=== PATIENT | male | born 1950 | race Hispanic/Latino ===

== ENCOUNTER 2017-01-21 05:30 | Inpatient (IN) | payer MEDICARE, OTHER ==
[2017-01-21] MEDS ORDERED: Sodium Chloride 0.9% 1,000 ML IV STA (05:52)
--- NOTE | 2017-01-21 05:52 | ED PDOC ---
Arrival/HPI - General Historian: Patient - History of Present Illness Time/Duration: Other (last night) Symptom Onset: Gradual Activities at Onset: Light, Eating Context: Home <Zac Mackay - Last Filed: 01/21/17 07:00> <DamionsergeiCam - Last Filed: 01/21/17 11:16> - General Chief Complaint: Abdominal Pain Time Seen by Provider: 01/21/17 05:47 - History of Present Illness Narrative History of Present Illness (Text): 01/21/17 05:51 Bryan Mei is a 66 year old male, whose past medical history includes colorectal cancer in remission, hypertension, diabetes, pneumonia, and pacemaker , who presents to the ED complaining of diffuse abdominal pain after eating since last night. Patient also reports associated nausea and vomiting. Patient states he had took TUMS at home but denies any relief. Patient denies any fever , chills, chest pain, shortness of breath, diarrhea, urinary symptoms, back pain , neck pain, headache, dizziness, or any other complaints. (Zac Mackay) Past Medical History - Provider Review Nursing Documentation Reviewed: Yes - Infectious Disease Hx of Infectious Diseases: None - Cardiac Hx Hypertension: Yes Hx Pacemaker: Yes - Pulmonary Hx Respiratory Disorders: Yes Hx Asthma: Yes Hx Pneumonia: Yes - Neurological Hx Paralysis: No - HEENT Hx HEENT Disorder: Yes Hx Cataracts: Yes - Renal Hx Renal Disorder: Yes - Endocrine/Metabolic Hx Endocrine Disorders: Yes Hx Diabetes Mellitus Type 2: Yes - Hematological/Oncological Hx Blood Transfusions: No Hx Blood Transfusion Reaction: No - Integumentary Hx Dermatological Disorder: No - Musculoskeletal/Rheumatological Hx Musculoskeletal Disorders: Yes - Gastrointestinal Hx Gastrointestinal Disorders: Yes Hx Colostomy: Yes - Genitourinary/Gynecological Hx Genitourinary Disorders: No - Psychiatric Hx Emotional Abuse: No Hx Physical Abuse: No Hx Substance Use: No - Surgical History Hx Inguinal Hernia Repair: Yes - Anesthesia Hx Anesthesia Reactions: No Hx Malignant Hyperthermia: No - Suicidal Assessment Feels Threatened In Home Enviroment: No <Zac Mackay - Last Filed: 01/21/17 07:00> Family/Social History - Physician Review Nursing Documentation Reviewed: Yes Family/Social History: No Known Family HX Smoking Status: Former Smoker Hx Alcohol Use: No Hx Substance Use: No <Zac Mackay - Last Filed: 01/21/17 07:00> Allergies/Home Meds <Zac Mackay - Last Filed: 01/21/17 07:00> <Cam Fragoso - Last Filed: 01/21/17 11:16> Allergies/Adverse Reactions: Allergies No Known Allergies Allergy (Verified 07/05/16 11:12) Home Medications: Home Meds Medication Instructions Recorded Confirmed Enalapril Maleate [Vasotec] 2.5 mg PO DAILY 08/11/13 01/21/17 Allopurinol [Zyloprim] 100 mg PO DAILY 04/24/16 01/21/17 Aspirin [Ecotrin] 81 mg PO DAILY 04/24/16 01/21/17 Gabapentin [Neurontin] 600 mg PO BID 04/24/16 01/21/17 Pravastatin Sodium [Pravachol] 40 mg PO DIN 04/24/16 01/21/17 Alprazolam 0.25 mg PO BID PRN 04/25/16 01/21/17 Oxycodone HCl/Acetaminophen 1 tab PO BID PRN 07/05/16 01/21/17 [Percocet 10-325 mg Tablet] Sertraline [Zoloft] 50 mg PO BID 07/05/16 01/21/17 Review of Systems - Physician Review All systems were reviewed & negative as marked: Yes - Review of Systems Constitutional: Normal. absent: Fevers Eyes: Normal ENT: Normal Respiratory: Normal. absent: SOB, Cough Cardiovascular: Normal. absent: Chest Pain Gastrointestinal: Abdominal Pain, Nausea, Vomiting. absent: Diarrhea Genitourinary Male: Normal. absent: Dysuria, Frequency, Hematuria, Urinary Output Changes Musculoskeletal: Normal. absent: Back Pain, Neck Pain Skin: Normal. absent: Rash Neurological: Normal. absent: Headache, Dizziness Endocrine: Normal Hemo/Lymphatic: Normal Psychiatric: Normal <Zac Mackay - Last Filed: 01/21/17 07:00> Physical Exam Vital Signs Reviewed: Yes Temperature: Afebrile Blood Pressure: Normal Pulse: Regular Respiratory Rate: Normal Appearance: Positive for: Well-Appearing, Non-Toxic, Comfortable Pain Distress: None Mental Status: Positive for: Alert and Oriented X 3 - Systems Exam Head: Present: Atraumatic, Normocephalic Pupils: Present: PERRL Extroacular Muscles: Present: EOMI Conjunctiva: Present: Normal Mouth: Present: Moist Mucous Membranes Neck: Present: Normal Range of Motion Respiratory/Chest: Present: Clear to Auscultation, Good Air Exchange. No: Respiratory Distress, Accessory Muscle Use Cardiovascular: Present: Regular Rate and Rhythm, Normal S1, S2. No: Murmurs Abdomen: Present: Tenderness (Diffuse abdominal tenderness, not acute abdomen), Normal Bowel Sounds. No: Distention, Peritoneal Signs Back: Present: Normal Inspection Upper Extremity: Present: Normal Inspection. No: Cyanosis, Edema Lower Extremity: Present: Normal Inspection. No: Edema Neurological: Present: GCS=15, CN II-XII Intact, Speech Normal Skin: Present: Warm, Dry, Normal Color. No: Rashes Psychiatric: Present: Alert, Oriented x 3, Normal Insight, Normal Concentration <Zac Mackay - Last Filed: 01/21/17 07:00> Medical Decision Making - EKG Interpretation Interpreted by ED Physician: Yes Type: 12 lead EKG - Transfer of Care Patient signed out to Dr:: felix ct scan labs and dispo <Zac Mackay - Last Filed: 01/21/17 07:00> <Cam Fragoso - Last Filed: 01/21/17 11:16> ED Course and Treatment: 01/21/17 05:51 Impression: 66 year old male complaining of diffuse upper abdominal pain, nausea, and vomiting since last night. Plan: -- CT Abdominal and Pelvis w/o contrast -- EKG -- CXR -- Labs, cardiac enzymes, lipase, amylase, VBG, blood cultures -- Urinalysis -- IV fluids -- Zofran -- Dilaudid -- Reassess and disposition Prior Visits: Notes and results from previous visits were reviewed. Progress Notes: Reviewed EKG, 100% paced rhythm at 65 bpm. (Zac Mackay) 01/21/17 05:55 Sign out from overnight. Pending CT scan (Cam Fragoso) - Lab Interpretations Lab Results: 01/21/17 05:50 01/21/17 05:50 Lab Results 01/21/17 09:15: pO2 208 H, VBG pH 7.32, VBG pCO2 53.0, VBG HCO3 27.3, VBG Total CO2 28.9 H, VBG O2 Sat (Calc) 100.0 H, VBG Base Excess 0.3, VBG Potassium 4.5, Sodium 135.0, Chloride 106.0, Glucose 153 H, Lactate 1.9, FiO2 21.0, Venous Blood Potassium 4.5 01/21/17 07:15: Urine Color Yellow, Urine Appearance Sl cloudy, Urine pH 6.0, Ur Specific [place] >= 1.030, Urine Protein >=300 H, Urine Glucose (UA) Negative , Urine Ketones Negative, Urine Blood Small H, Urine Nitrate Negative, Urine Bilirubin Negative, Urine Urobilinogen 0.2, Ur Leukocyte Esterase Negative, Urine RBC 0 - 2, Urine WBC Negative 01/21/17 05:50: pO2 94 H, VBG pH 7.40, VBG pCO2 40.0, VBG HCO3 24.8, VBG Total CO2 26.0, VBG O2 Sat (Calc) 98.7 H, VBG Base Excess 0.0, VBG Potassium 4.3, Sodium 136.0, Chloride 105.0, Glucose 163 H, Lactate 2.0, FiO2 21.0, Venous Blood Potassium 4.3 01/21/17 05:50: Sodium 139, Chloride 101, Potassium 4.3, Carbon Dioxide 25, Anion Gap 17, BUN 18, Creatinine 1.0, Est GFR ( Amer) > 60, Est GFR (Non- Af Amer) > 60, Random Glucose 157 H, Calcium 9.6, Total Bilirubin 1.1, AST 46, ALT 48, Alkaline Phosphatase 83, Lactate Dehydrogenase 736 H, Total Creatine Kinase 584 H, CK-MB (CK-2) 6.5 H, CK-MB (CK-2) % 1.1 L, Troponin I < 0.01, Total Protein 8.6 H, Albumin 4.6, Globulin 4.0, Albumin/Globulin Ratio 1.2, Amylase 88, Lipase 109 01/21/17 05:50: PT 11.2, INR 1.04, APTT 24.2 01/21/17 05:50: WBC 10.7 D, RBC 5.32, Hgb 16.1, Hct 46.2, MCV 86.8, MCH 30.3, MCHC 34.8, RDW 15.7 H, Plt Count 177, MPV 9.6, Gran % 77.3 H, Lymph % (Auto) 13.2 L, [place] % (Auto) 8.6 H, Eos % (Auto) 0.7 L, Baso % (Auto) 0.2, Gran # 8.26 H, Lymph # 1.4, [place] # 0.9 H, Eos # 0.1, Baso # 0.02 - RAD Interpretation Radiology Orders: 01/21/17 05:52 ABD & PELVIS W/O PO OR IV CONT [CT] Stat - Medication Orders Current Medication Orders: Sodium Chloride (Sodium Chloride 0.9%) 1,000 mls @ 100 mls/hr IV .Q10H STA Stop: 01/21/17 15:51 Last Admin: 01/21/17 06:07 Dose: 100 mls/hr Sodium Chloride (Sodium Chloride 0.9%) 1,000 mls @ 100 mls/hr IV .Q10H ORIANA Discontinued Medications Hydromorphone HCl (Dilaudid) 2 mg IVP STAT STA Stop: 01/21/17 05:54 Last Admin: 01/21/17 06:08 Dose: 2 mg Re-Assess: MICHELLE Pain Assessment Document 01/21/17 07:08 SS (Rec: 01/21/17 07:32 SS [facility] [id number]) Pain Reassessment Is this a pain reassessment? Yes Sleep Is patient sleeping during reassessment? No Presence of Pain Presence of Pain No Pain Scale Used Pain Scale Used Numeric Location Pain Location Body Site Abdomen Description Intensity of Pain at present 0 Piperacillin Sod/Tazobactam Sod (Zosyn 4.5 Gm In Ns 100ml) 4.5 gm in 100 mls @ 200 mls/hr IVPB STAT STA PRN Reason: Protocol Stop: 01/21/17 10:43 Last Admin: 01/21/17 10:45 Dose: 200 mls/hr Midazolam HCl (Versed Inj) 2 mg IVP ONCE ONE Stop: 01/21/17 10:55 Ondansetron HCl (Zofran Inj) 4 mg IVP STAT STA Stop: 01/21/17 05:53 Last Admin: 01/21/17 06:07 Dose: 4 mg ED OBSERVATION <Zac Mackay - Last Filed: 01/21/17 07:00> Date of observation admission: 01/21/17 Time of observation admission: 05:55 <Cam Fragoso - Last Filed: 01/21/17 11:16> - Observation admission statement Patient is being placed in observation because:: abdominal pain (Cam Fragoso) - Goals of Observation Goals of observation are:: pending labs and CT (Cam Fragoso) - Progress Note Progress Note: 01/21/17 07:55 On reevaluation, patient reports feeling better. On physical exam, abdomen was soft nontender. 01/21/17 10:[address] Delarosa, covering for Dr. Pat, who agrees with ng tube and surgical consult. 01/21/17 10:[address] Hartman in the ER, states will consult surgery NGT order placed, RN aware to premedicate with versed pt aware of and agrees with NGT and admission plan CT abd/pelvis: Creator : Charles Ga MD IMPRESSION: Moderately dilated loops of small bowel in the mid and upper abdomen. Findings consistent with partial small bowel obstruction. No evidence of pneumatosis or free air. 01/21/17 11:[address] Harley from surgery, aware of pt and consult for Dr. Osuna. 01/21/17 11:[address] Wahl, covering for Dr. Osuna, aware of pt plan and consult ( Cam Fragoso) - Scribe Statement The provider has reviewed the documentation as recorded by the Scribe <Zac Mackay - Last Filed: 01/21/17 07:00> <Cam Fragoso - Last Filed: 01/21/17 11:16> - Scribe Statement Kellie Lane (Zac Mackay) Provider Attestation: All medical record entries made by the Scribe were at my direction and personally dictated by me. I have reviewed the chart and agree that the record accurately reflects my personal performance of the history, physical exam, medical decision making, and the department course for this patient. I have also personally directed, reviewed, and agree with the discharge instructions and disposition. (Zac Mackay) Disposition/Present on Arrival - Present on Arrival Any Indicators Present on Arrival: No History of DVT/PE: No History of Uncontrolled Diabetes: No Urinary Catheter: No History of Decub. Ulcer: No History Surgical Site Infection Following: None - Disposition Have Diagnosis and Disposition been Completed?: Yes Disposition Time: 07:00 <Zac Mackay - Last Filed: 01/21/17 07:00> - Present on Arrival Any Indicators Present on Arrival: No - Disposition Have Diagnosis and Disposition been Completed?: Yes Patient Plan: Admission <Cam Fragoso - Last Filed: 01/21/17 11:16> - Disposition Diagnosis: Abdominal pain Disposition: HOSPITALIZED Patient Problems: Current Active Problems Problem Status Onset Abdominal pain Acute Condition: FAIR
[2017-01-21] MEDS ORDERED: HYDROmorphone 2 mg/ml ISec IVP STA (05:53)
[2017-01-21 06:16] LABS: ADD MANUAL DIFF? NO
[2017-01-21 06:24] LABS: BASO # 0.02 K/mm3 (0.0-2.0); BASO % 0.2 % (0.0-3.0); EOS # 0.1 (0.0-0.7); EOS % 0.7 % (1.5-5.0); GRAN # 8.26 (1.4-6.5); GRAN % 77.3 % (50.0-68.0); HEMATOCRIT 46.2 % (42.0-52.0); LYMPH # 1.4 (1.2-3.4); LYMPH % 13.2 % (22.0-35.0); MEAN CELL VOLUME 86.8 fL (80.0-105.0); MEAN CORPUSCULAR HEMOGLOBIN 30.3 pg (25.0-35.0); MEAN CORPUSCULAR HGB CONC 34.8 g/dl (31.0-37.0); MEAN PLATELET VOLUME 9.6 fl (7.0-11.0); MONO # 0.9 (0.1-0.6); MONO % 8.6 % (1.0-6.0); PLATELET COUNT 177 10^3/uL (120.0-450.0); RED CELL DISTRIBUTION WIDTH 15.7 % (11.5-14.5); WHITE BLOOD COUNT 10.7 10^3/ul (4.5-11.0)
[2017-01-21 06:31] LABS: INR 1.04 (0.93-1.08); PARTIAL THROMBOPLASTIN TIME 24.2 Seconds (23.7-30.8)
[2017-01-21 06:38] LABS: ALB/GLOB RATIO 1.2 (1.1-1.8); ALKALINE PHOSPHATASE 83 U/L (38-133); ALT/SGPT 48 U/L (7-56); AMYLASE 88 U/L (35-125); AST/SGOT 46 U/L (15-59); BILIRUBIN,TOTAL 1.1 mg/dL (0.2-1.3); BLOOD UREA NITROGEN 18 mg/dL (7-21); CALCIUM 9.6 mg/dL (8.4-10.5); CARBON DIOXIDE 25 mmol/L (21-33); CHLORIDE 101 mmol/L (98-107); GFR AFRICAN-AMERICAN > 60; GLUCOSE,RANDOM 157 mg/dL (70-110); LIPASE 109 U/L (23-300); POTASSIUM 4.3 mmol/L (3.6-5.0); SODIUM 139 mmol/L (132-148); TOTAL PROTEIN 8.6 g/dL (5.8-8.3)
[2017-01-21 07:10] LABS: TROPONIN I < 0.01 ng/mL
[2017-01-21 07:33] LABS: URINE BILIRUBIN NEGATIVE (NEGATIVE); URINE BLOOD SMALL (NEGATIVE); URINE GLUCOSE (UA) NEGATIVE (NEGATIVE); URINE KETONE NEGATIVE (NEGATIVE); URINE LEUKOCYTE ESTERASE NEGATIVE Leu/uL (NEGATIVE); URINE PROTEIN >=300 mg/dL (<30 mg/dL); URINE UROBILINOGEN 0.2 E.U./dL (<1 E.U./dL)
[2017-01-21 07:35] LABS: URINE APPEARANCE SL CLOUDY (CLEAR); URINE COLOR YELLOW (YELLOW)
[2017-01-21 07:41] LABS: URINE RBC 0 - 2 /hpf (0-2); URINE WBC NEGATIVE /hpf (0-6)
[2017-01-21 09:32] LABS: VENOUS BLOOD GAS BASE EXCESS 0.3 mmol/L (0.0-2.0); VENOUS BLOOD PH 7.32 (7.32-7.43)
--- NOTE | 2017-01-21 10:03 | CT ---
PROCEDURE: CT Abdomen and Pelvis without intravenous contrast HISTORY: abd pain COMPARISON: 10/27/2015 TECHNIQUE: Without contrast. Contrast Dose: Radiation dose: Total exam DLP = 1257 mGy-cm. This CT exam was performed using one or more of the following dose reduction techniques: Automated exposure control, adjustment of the mA and/or kV according to patient size, and/or use of iterative reconstruction technique. FINDINGS: LOWER THORAX: Unremarkable. LIVER: Unremarkable. No gross lesion or ductal dilatation. GALLBLADDER AND BILE DUCTS: Unremarkable. PANCREAS: Unremarkable. No gross lesion or ductal dilatation. SPLEEN: Unremarkable. ADRENALS: Unremarkable. No mass. KIDNEYS AND URETERS: Unremarkable. No hydronephrosis. No solid mass. VASCULATURE: Unremarkable. No aortic aneurysm. BOWEL: Moderately dilated loops of small bowel are seen throughout the abdomen. There are normal caliber loops in the pelvis and terminal ileum. The exact transition point is not visualized. Findings are most likely due to adhesions. There has been previous surgery on the colon. There is a suture line in the sigmoid colon and in the lower rectum. There is no evidence of pneumatosis or free air APPENDIX: Unremarkable. Normal appendix. PERITONEUM: Unremarkable. No free fluid. No free air. LYMPH NODES: Unremarkable. No enlarged lymph nodes. BLADDER: Unremarkable. REPRODUCTIVE: Unremarkable. BONES: No acute fracture. OTHER FINDINGS: None. IMPRESSION: Moderately dilated loops of small bowel in the mid and upper abdomen. Findings consistent with partial small bowel obstruction. No evidence of pneumatosis or free air.
[2017-01-21] MEDS ORDERED: Piperacill/Tazo 4.5gm in NS 100 ML IVPB STA (10:13)
[2017-01-21] MEDS ORDERED: Piperacill/Tazo 4.5gm in NS 4.5 GM/100 ML BAG IVPB STA (10:14)
[2017-01-21] MEDS ORDERED: Midazolam 2 MG/2 ML VIAL IVP ONE (10:54)
[2017-01-21] MEDS ORDERED: Sodium Chloride 0.9% 1,000 ML IV SCH ×2 (11:00→12:43)
--- NOTE | 2017-01-21 12:35 | CON ---
DATE: 01/21/2017 This consultation is for Dr. Johnson, Dr. Delarosa covering. REASON FOR CONSULTATION: I have been asked to see this 66-year-old male with history of colorectal c ancer, status post colon resection 2 years ago followed by chemoradiation, who has been doing well up until yesterday when he developed moderate to severe abdominal pain associated with nausea and vomit ing. The patient required a visit to the Emergency Room. A CT scan of the abdomen and pelvis perfor med in the Emergency Room revealed dilated loops of small bowel with what appears to be a transition point in the left lower quadrant. He last had a bowel movement yesterday. He denies any hematemesis or rectal bleeding. PAST MEDICAL HISTORY: Notable for colon cancer, diabetes mellitus, hypertension, cardiac arrhythmia, pneumonia. PAST SURGICAL HISTORY: Notable for permanent pacemaker placement, colon resection with colostomy and reversal of colostomy, inguinal hernia repair. SOCIAL HISTORY: He is a former cigarette smoker, having quit years ago. FAMILY HISTORY: Noncontributory. REVIEW OF SYSTEMS: A 14-point review of systems is notable for abdominal pain, nausea, vomiting. PHYSICAL EXAMINATION: GENERAL: Well-developed male lying in bed in no acute distress. His BMI is 37.3. VITAL SIGNS: Reveal temperature of 98.2, blood pressure 120/59, heart rate is 60. HEENT: Reveals sclerae to be white, conjunctivae pink. NECK: Supple. CHEST: Lungs are clear. HEART: Reveals a regular rate and rhythm. ABDOMEN: Obese, soft, mild diffuse tenderness. No rebound, no guarding. EXTREMITIES: Show no edema. LABORATORY DATA: Reveal white blood cell count 10.7, hemoglobin 16.1. Chemistries reveal normal elisa ctrolytes, blood sugar of 157, LDH 736. CBC reveals white blood cell count of 10.7, hemoglobin 16.1. Coags are normal. IMPRESSION: A 66-year-old male with a history of colorectal cancer, status post colon resection, tem porary colostomy, reversal of colostomy with a CT scan showing small-bowel obstruction, most likely s econdary to adhesions. RECOMMENDATIONS: 1. NG tube decompression. 2. Surgical evaluation. 3. Serial x-rays of the abdomen. Zac Delarosa MD cc: [phone] TT: 01/21/2017 12:34:24 Confirmation # [id number] Dictation # [id number]
--- NOTE | 2017-01-21 12:38 | CP.PCM.CON ---
History of Present Illness - History of Present Illness History of Present Illness: General Surgery Consult: Dr Bautista CC: abdominal pain/distension Pt is a 66M with PMH of HTN, DM, and left hemicolectomy for cancer in 2014. Pt reports he began feeling john-umbilical cramping pain last night. Initially pain was 4/10 but has progressively worsened as it occurs in waves throughout the night, prompting his visit to the ED. He reports 2 episodes of emesis with persistent nausea as well. PT reports he has not moved his bowels in 2 days, but he has been passing flatus. He also complains his abdomen is significantly more distended than normal. CT concerning for SBO with transition point in LLQ. Multiple attempts made to pass NGT by nurses, ED physician and myself. All unsuccessful and unable to pass nasopharyngeal airway. There may be mechanical issue causing obstruction. Review of Systems - Review of Systems All systems: reviewed and no additional remarkable complaints except (as per hpi ) Past Patient History - Infectious Disease Hx of Infectious Diseases: None - Past Social History Smoking Status: Former Smoker - CARDIAC Hx Hypertension: Yes Hx Pacemaker: Yes - PULMONARY Hx Respiratory Disorders: Yes Hx Asthma: Yes Hx Pneumonia: Yes - NEUROLOGICAL Hx Paralysis: No - HEENT Hx HEENT Problems: Yes Hx Cataracts: Yes - RENAL Hx Chronic Kidney Disease: Yes - ENDOCRINE/METABOLIC Hx Endocrine Disorders: Yes Hx Diabetes Mellitus Type 2: Yes - HEMATOLOGICAL/ONCOLOGICAL Hx Blood Transfusions: No Hx Blood Transfusion Reaction: No - INTEGUMENTARY Hx Dermatological Problems: No - MUSCULOSKELETAL/RHEUMATOLOGICAL Hx Musculoskeletal Disorders: Yes - GASTROINTESTINAL Hx Gastrointestinal Disorders: Yes Hx Colostomy: Yes - GENITOURINARY/GYNECOLOGICAL Hx Genitourinary Disorders: No - PSYCHIATRIC Hx Emotional Abuse: No Hx Physical Abuse: No Hx Substance Use: No - SURGICAL HISTORY Hx Surgeries: Yes - ANESTHESIA Hx Anesthesia Reactions: No Hx Malignant Hyperthermia: No Meds Allergies/Adverse Reactions: Allergies Allergy/AdvReac Type Severity Reaction Status Date / Time No Known Allergies Allergy Verified 01/21/17 12:08 - Medications Medications: Current Medications Sodium Chloride (Sodium Chloride 0.9%) 1,000 mls @ 100 mls/hr IV .Q10H STA Stop: 01/21/17 15:51 Last Admin: 01/21/17 06:07 Dose: 100 mls/hr Sodium Chloride (Sodium Chloride 0.9%) 1,000 mls @ 100 mls/hr IV .Q10H ORIANA Physical Exam - Constitutional Appears: Non-toxic, No Acute Distress - Head Exam Head Exam: NORMOCEPHALIC - Eye Exam Eye Exam: Normal appearance - ENT Exam ENT Exam: Mucous Membranes Dry - Respiratory Exam Respiratory Exam: absent: Accessory Muscle Use, Respiratory Distress - Cardiovascular Exam Cardiovascular Exam: REGULAR RHYTHM. absent: Tachycardia - GI/Abdominal Exam GI & Abdominal Exam: Diminished Bowel Sounds, Distended, Firm. absent: Guarding , Hernia, Mass, Rigid, Tenderness - Rectal Exam Rectal Exam: absent: Deferred - Extremities Exam Extremities exam: Positive for: normal inspection. Negative for: pedal edema - Neurological Exam Neurological exam: Alert, Oriented x3 - Psychiatric Exam Psychiatric exam: Normal Affect, Normal Mood - Skin Skin Exam: Normal Color, Warm Results - Vital Signs Recent Vital Signs: Last Vital Signs Temp 98.3 F 01/21/17 11:54 Pulse 60 01/21/17 12:11 Resp 18 01/21/17 12:11 BP 120/53 L 01/21/17 12:11 Pulse Ox 95 01/21/17 12:11 - Labs Result Diagrams: 01/21/17 05:50 01/21/17 05:50 Assessment & Plan - Assessment and Plan (Free Text) Assessment: 66M with SBO Plan: Unable to pass NGT for decompression Maintain NPO IV hydration anti-emetics and pain control PRN pt passing flatus currently encourage ambulation Pt can chew gum to possibly help stimulate GI motility will continue to monitor closely d/w Dr Michele Montiel, DO, PGY2 - Date & Time Date: 01/21/17 Time: 12:40
[2017-01-21] MEDS ORDERED: HYDROmorphone 0.5 mg/0.5 ml ISec IVP PRN (12:42)
[2017-01-21] MEDS ORDERED: Sodium Chloride 0.45% 1,000 ML IV SCH (13:00)
[2017-01-21] MEDS: Sodium Chloride 0.45% 1,000 ML IV SCH ×2 (13:33→21:00)
--- NOTE | 2017-01-21 14:02 | HP ---
The patient is a 66-year-old, known to me from my office practice. The patient was diagnosed with re ctal carcinoma. He had abdominoperineal access resection done. He had colostomy that was reversed a lmost a year or 2 ago. He was having some abdominal discomfort, intermittent, so he had CAT scan don e by his surgeon in [facility] almost a week ago. His symptoms actually persisted and got worse last night, so he came to Emergency Room for further evaluation. SIGNIFICANT PAST MEDICAL HISTORY: 1. Hypertension. 2. Non-insulin dependent diabetes. 3. History of renal cancer. 4. Hyperlipidemia. 5. Chronic diarrhea. ALLERGIES: He is not allergic to any medication. MEDICATIONS AT HOME: He is on Zoloft 50 mg daily, pravastatin 40 mg daily, Percocet as needed, Neuro ntin 600 twice a day, enalapril 2.5 daily, Xanax 0.25 b.i.d. and allopurinol 100 mg daily. SOCIAL HISTORY: He is , lives with his . History of smoking heavy in the past, but does not smoke anymore. REVIEW OF SYSTEMS: Significant for abdominal discomfort, had nausea, had a couple of vomiting before coming to the hospital. PHYSICAL EXAMINATION: GENERAL: He does not look in any acute distress. VITAL SIGNS: He is afebrile, pulse 62, respirations 18, blood pressure 120/53. LUNGS: Bilateral fair airflow, no rhonchi or crackle. HEART: S1, S2 audible. ABDOMEN: Soft, but slightly distended. Bowel sounds are positive. NEUROLOGIC: He is awake and alert, communicative. LABORATORY EXAMINATION: WBCs 10.7, hemoglobin 16, hematocrit 46, platelets 177. PT 11.2, INR 1.04. Chemistry: Sodium 139, potassium 4.3, chloride 101, CO2 25, BUN 18, creatinine 1.0, blood sugar of 157. LDH is 736. CK-MB is 6.5. Urinalysis is unremarkable. ASSESSMENT: 1. Partial small bowel obstruction, probably secondary to adhesions. 2. Rectal cancer, status post abdominoperineal resection. 3. Non-insulin dependent diabetes. 4. Hyperlipidemia. CT scan of the abdomen and pelvis shows moderately dilated loops of small bowel in the mid and the up per abdomen, findings consistent with partial small bowel obstruction. PLAN: Will have nasogastric placed. Keep him n.p.o., give IV fluid, monitor his blood sugar. Start him on pantoprazole and Zofran as needed. Dr. Springer for evaluation and Dr. Delarosa is following the patient also. Sundar Hartman MD cc: [phone] TT: 01/21/2017 14:01:24 en
--- NOTE | 2017-01-21 15:38 | CARD ---
APPROVED REPORT EKG Measurement Heart [id number] <Conclusion> Electronic ventricular pacemaker
[2017-01-21 15:51] VITALS: BMI 32.6
[2017-01-21] MEDS: Insulin Reg-HIGH-Coverage SC SCH (21:54)
[2017-01-22] MEDS: Sodium Chloride 0.45% 1,000 ML IV SCH (05:17)
[2017-01-22] MEDS: Insulin Reg-HIGH-Coverage SC SCH ×4 (07:30→21:51)
--- NOTE | 2017-01-22 07:41 | CP.PCM.PN ---
Subjective - Date & Time of Evaluation Date of Evaluation: 01/22/17 Time of Evaluation: 07:35 - Subjective Subjective: Patient seen and evaluated at bedside. No acute events overnight. Patient with multiple BM's overnight. He is passing gas. He denies abd pain, n/v, fever, chills. Patient had a colonoscopy recently for monitoring due to history of colorectal ca. He is followed by both GI and oncology for this. Objective - Vital Signs/Intake and Output Vital Signs (last 24 hours): Temp Pulse Resp BP Pulse Ox 98.5 F 60 19 110/51 L 95 01/21/17 16:00 01/21/17 16:00 01/21/17 16:00 01/21/17 16:00 01/21/17 16:00 Intake and Output: 01/22/17 01/22/17 06:59 18:59 Intake Total 1500 Balance 1500 - Medications Medications: Current Medications Alprazolam (Xanax) 0.25 mg PO BID PRN; Protocol PRN Reason: Anxiety Stop: 01/28/17 12:56 Aspirin (Ecotrin) 81 mg PO DAILY [facility] Hydromorphone HCl (Dilaudid) 0.5 mg IVP Q3H PRN PRN Reason: Pain, Mild (1-3) Sodium Chloride (Sodium Chloride 0.45%) 1,000 mls @ 125 mls/hr IV .Q8H [facility] Last Admin: 01/22/17 05:17 Dose: 125 mls/hr Insulin Human Regular (Humulin R High) 0 units SC ACHS [place] PRN Reason: Protocol Last Admin: 01/21/17 21:54 Dose: Not Given Ondansetron HCl (Zofran Inj) 4 mg IVP Q6H PRN PRN Reason: Nausea/Vomiting Pantoprazole Sodium (Protonix Inj) 40 mg IVP DAILY [facility] Last Admin: 01/21/17 13:32 Dose: 40 mg Sertraline HCl (Zoloft) 50 mg PO BID [facility] - Labs Labs: PT 11.2 Seconds (9.9-11.8) 01/21/17 05:50 INR 1.04 (0.93-1.08) 01/21/17 05:50 APTT 24.2 Seconds (23.7-30.8) 01/21/17 05:50 - Constitutional Appears: Non-toxic, No Acute Distress - Head Exam Head Exam: ATRAUMATIC, NORMOCEPHALIC - Eye Exam Eye Exam: EOMI, PERRL - ENT Exam ENT Exam: Mucous Membranes Moist - Neck Exam Neck Exam: Full ROM - Respiratory Exam Respiratory Exam: Clear to Ausculation Bilateral. absent: Rales, Rhonchi, Wheezes - Cardiovascular Exam Cardiovascular Exam: REGULAR RHYTHM, +S1, +S2 - GI/Abdominal Exam GI & Abdominal Exam: Soft, Normal Bowel Sounds. absent: Distended, Firm, Tenderness - Extremities Exam Extremities Exam: absent: Calf Tenderness, Pedal Edema - Back Exam Back Exam: NORMAL INSPECTION - Neurological Exam Neurological Exam: Alert, Awake, Oriented x3 - Psychiatric Exam Psychiatric exam: Normal Affect, Normal Mood - Skin Skin Exam: Normal Color, Warm Assessment and Plan - Assessment and Plan (Free Text) Assessment: 66 y/o male with hx colorectal ca s/p left sanchez-colectomy presenting with SBO. Obstruction is now resolved. Patient with multiple BMs overnight. - will advance diet to clears this morning. will advance as tolerated today. - patient is clear for discharge once he tolerates diet - encourage OOB and ambulation - no surgical intervention as obstruction is resolved
[2017-01-22 07:53] LABS: ALB/GLOB RATIO 1.1 (1.1-1.8); ALKALINE PHOSPHATASE 61 U/L (38-133); ALT/SGPT 40 U/L (7-56); AST/SGOT 34 U/L (15-59); BILIRUBIN,TOTAL 1.2 mg/dL (0.2-1.3); BLOOD UREA NITROGEN 15 mg/dL (7-21); CALCIUM 8.1 mg/dL (8.4-10.5); CARBON DIOXIDE 24 mmol/L (21-33); CHLORIDE 103 mmol/L (98-107); GFR AFRICAN-AMERICAN > 60; GLUCOSE,RANDOM 93 mg/dL (70-110); PHOSPHOROUS 2.5 mg/dL (2.5-4.5); POTASSIUM 4.2 mmol/L (3.6-5.0); SODIUM 137 mmol/L (132-148)
--- NOTE | 2017-01-22 10:04 | CON ---
DATE: 01/22/2017 I saw him in the Emergency Room yesterday and examined him at that time. My exam was personally cond ucted. I agree with the resident. I reviewed the CAT scan myself. It shows small bowel obstruction , almost certainly early and/or partial. The patient has a history of colon cancer treated at [facility] and has an appointment there coming up soon; had a CAT scan several months ago which showed "scar tis jayson," whatever that means. PHYSICAL EXAMINATION: ABDOMEN: Obese, soft. The scars are healed. There is no guarding or rebound. This is probably in my opinion real. In addition, this morning, started to have multiple bowel movem ents and virtually diarrhea and his abdomen is soft and nontender and very little distention. I thin k this small bowel obstruction and/or ileus or gastroenteritis has resolved. We will start to feed h im. Dillon Bautista MD cc: [phone] TT: 01/22/2017 10:03:40 Confirmation # [id number] Dictation # [id number]
--- NOTE | 2017-01-22 12:27 | PN ---
DATE: 01/22/2017 SUBJECTIVE: The patient feels better. Despite multiple attempts by several physicians, an NG tube c ould not be inserted for decompression. The patient's abdominal pain has improved. He had several b owel movements last night. He currently denies any nausea and vomiting. PHYSICAL EXAMINATION: VITAL SIGNS: Reveal a temperature of 98.3, blood pressure 117/62, heart rate is 60. HEENT: Reveals sclerae to be white, conjunctivae pink. NECK: Supple. CHEST: Lungs are clear. HEART: Reveals a regular rate and rhythm. ABDOMEN: Soft, obese. There is a well-healed left paramedian scar. EXTREMITIES: Show no edema. LABORATORY DATA: Reveal a white blood cell count of 10.7, hemoglobin 16.1. Electrolytes are normal. IMPRESSION: A 66-year-old male with a history of colon cancer, status post colostomy and reversal of colostomy with colon resection approximately 2 years ago, admitted to the hospital with 1 day of abd ominal pain, nausea and vomiting. CT scan of the abdomen and pelvis was consistent with small-bowel obstruction with dilated loops of small bowel with a transition point in the left pelvis. Clinically , the patient has improved. A nasogastric tube could not be inserted. RECOMMENDATIONS: 1. We will obtain an obstructive series of the abdomen today. 2. We will try clear liquid diet. Hopefully, his small-bowel obstruction has spontaneously resolved . Zac Delarosa MD cc: [phone] TT: 01/22/2017 12:27:08 Confirmation # [id number] Dictation # [id number] sn
[2017-01-22] MEDS ORDERED: Sodium Chloride 0.45% 1,000 ML IV SCH (12:40)
--- NOTE | 2017-01-22 13:06 | PN ---
DATE: 01/22/2017 The patient is a 66-year-old, seen and examined. He states he had 4 bowel movement last night. Seem s to be a little better. Still a little distended, but not nauseous. States he is hungry. PHYSICAL EXAMINATION: VITAL SIGNS: He is afebrile, pulse 60, respirations 20, and blood pressure 117/62. LUNGS: Bilateral fair airflow, no rhonchi or crackle. HEART: S1, S2 audible. No murmur. ABDOMEN: Soft, distended. Bowel sounds are present. NEUROLOGIC: He is awake and alert, communicative. LABORATORY: Sodium 137, potassium 4.2, chloride 103, CO2 24, BUN 15, creatinine 0.9, blood sugar 124 . Blood cultures are negative. ASSESSMENT AND PLAN: 1. Partial small bowel obstruction probably secondary to adhesions because of recent surgery for col orectal cancer. 2. Dhd-[id number]-mxodfluvf diabetes. 3. Hypertension. 4. Hyperlipidemia. PLAN: Will continue on IV fluids. Nasogastric tube was tried yesterday to decompress her stomach, b ut they were unable to pass the nasogastric tube. Will continue on IV fluid; cut down to 100 mL per hour. I will continue on clear liquid. Follow up electrolytes in the a.m. If patient continues to improve, will start solid in the a.m. and make disposition plan. Sundar Hartman MD cc: [phone] TT: 01/22/2017 13:04:52 Confirmation # [id number] Dictation # [id number]
--- NOTE | 2017-01-22 14:04 | RAD ---
HISTORY: abdominal pain COMPARISON: No prior. FINDINGS: BOWEL: Mildly dilated small bowel loops. This is a nonspecific pattern BONES: Normal. OTHER FINDINGS: None. IMPRESSION: Mildly dilated small bowel loops. Nonspecific bowel gas pattern
[2017-01-23 07:04] LABS: ADD MANUAL DIFF? NO
[2017-01-23 07:15] LABS: BASO # 0.01 K/mm3 (0.0-2.0); BASO % 0.2 % (0.0-3.0); EOS # 0.4 (0.0-0.7); EOS % 6.1 % (1.5-5.0); GRAN # 3.55 (1.4-6.5); GRAN % 61.8 % (50.0-68.0); HEMATOCRIT 42.7 % (42.0-52.0); LYMPH # 1.3 (1.2-3.4); LYMPH % 22.5 % (22.0-35.0); MEAN CORPUSCULAR HEMOGLOBIN 29.3 pg (25.0-35.0); MEAN CORPUSCULAR HGB CONC 33.3 g/dl (31.0-37.0); MONO # 0.5 (0.1-0.6); MONO % 9.4 % (1.0-6.0); PLATELET COUNT 141 10^3/uL (120.0-450.0); RED CELL DISTRIBUTION WIDTH 15.6 % (11.5-14.5); WHITE BLOOD COUNT 5.7 10^3/ul (4.5-11.0)
[2017-01-23 07:29] LABS: ALB/GLOB RATIO 1.1 (1.1-1.8); ALKALINE PHOSPHATASE 62 U/L (38-133); ALT/SGPT 40 U/L (7-56); AST/SGOT 32 U/L (15-59); BLOOD UREA NITROGEN 11 mg/dL (7-21); CALCIUM 8.6 mg/dL (8.4-10.5); CARBON DIOXIDE 26 mmol/L (21-33); CHLORIDE 102 mmol/L (98-107); GFR AFRICAN-AMERICAN > 60; GLUCOSE,RANDOM 100 mg/dL (70-110); SODIUM 139 mmol/L (132-148); TOTAL PROTEIN 7.3 g/dL (5.8-8.3)
--- NOTE | 2017-01-23 07:50 | CP.PCM.PN ---
<Manan Tamayo - Last Filed: 01/23/17 07:46> Subjective - Date & Time of Evaluation Date of Evaluation: 01/23/17 Time of Evaluation: 07:47 - Subjective Subjective: Patient experienced a recurrence of abdominal pain yesterday which is now resolved. Abdominal series revealed generalized small bowel dilation. The patient continues to pass gas. He has not had a BM today. Objective - Vital Signs/Intake and Output Vital Signs (last 24 hours): Temp Pulse Resp BP Pulse Ox 98.2 F 65 20 119/71 95 01/22/17 16:00 01/22/17 16:00 01/22/17 16:00 01/22/17 16:00 01/22/17 16:00 Intake and Output: 01/23/17 01/23/17 06:59 18:59 Intake Total 2140 Balance 2140 - Medications Medications: Current Medications Acetaminophen (Tylenol 325mg Tab) 650 mg PO Q6H PRN PRN Reason: Pain, Mild (1-3) Last Admin: 01/22/17 14:15 Dose: 650 mg Alprazolam (Xanax) 0.25 mg PO BID PRN; Protocol PRN Reason: Anxiety Stop: 01/28/17 12:56 Aspirin (Ecotrin) 81 mg PO DAILY [facility] Last Admin: 01/22/17 11:03 Dose: 81 mg Sodium Chloride (Sodium Chloride 0.45%) 1,000 mls @ 100 mls/hr IV .Q10H [facility] Last Admin: 01/22/17 21:58 Dose: 100 mls/hr Insulin Human Regular (Humulin R High) 0 units SC ACHS [facility] PRN Reason: Protocol Last Admin: 01/22/17 21:51 Dose: Not Given Ondansetron HCl (Zofran Inj) 4 mg IVP Q6H PRN PRN Reason: Nausea/Vomiting Pantoprazole Sodium (Protonix Inj) 40 mg IVP DAILY [facility] Last Admin: 01/22/17 11:04 Dose: 40 mg Sertraline HCl (Zoloft) 50 mg PO BID [facility] Last Admin: 01/22/17 18:29 Dose: 50 mg - Labs Labs: 01/23/17 06:45 01/22/17 07:00 PT 11.2 Seconds (9.9-11.8) 01/21/17 05:50 INR 1.04 (0.93-1.08) 01/21/17 05:50 APTT 24.2 Seconds (23.7-30.8) 01/21/17 05:50 - Constitutional Appears: Non-toxic, No Acute Distress - Head Exam Head Exam: ATRAUMATIC, NORMOCEPHALIC - Eye Exam Eye Exam: EOMI, PERRL - ENT Exam ENT Exam: Mucous Membranes Moist - Neck Exam Neck Exam: Full ROM, Normal Inspection - Respiratory Exam Respiratory Exam: Clear to Ausculation Bilateral. absent: Rales, Rhonchi, Wheezes - Cardiovascular Exam Cardiovascular Exam: REGULAR RHYTHM, +S1, +S2 - GI/Abdominal Exam GI & Abdominal Exam: Soft. absent: Distended, Firm, Tenderness Additional comments: anterior abdominal wall defect without apparent herniation - Extremities Exam Extremities Exam: absent: Calf Tenderness, Pedal Edema - Neurological Exam Neurological Exam: Alert, Awake, Oriented x3 - Psychiatric Exam Psychiatric exam: Normal Affect, Normal Mood - Skin Skin Exam: Normal Color, Warm Assessment and Plan - Assessment and Plan (Free Text) Assessment: 66 y/o male with hx colorectal ca s/p left sanchez-colectomy presenting with SBO. - f/u small bowel series today -CLD for now. will attempt to advance as tolerated - encouraged OOB and ambulation - will discuss case with patient's surgeon from [facility] - patient was scheduled for cardiac cath at [facility] yesterday, states he has been seen by Dr. Jain here. Will discuss case with Dr. Jain if in fact the patient does require surgical intervention. <Blaine Montiel - Last Filed: 01/23/17 13:07> Objective - Vital Signs/Intake and Output Vital Signs (last 24 hours): Temp Pulse Resp BP Pulse Ox 97.7 F 60 17 104/66 95 01/23/17 06:00 01/23/17 06:00 01/23/17 06:00 01/23/17 06:00 01/23/17 06:00 Intake and Output: 01/23/17 01/23/17 06:59 18:59 Intake Total 2140 Balance 2140 - Medications Medications: Current Medications Acetaminophen (Tylenol 325mg Tab) 650 mg PO Q6H PRN PRN Reason: Pain, Mild (1-3) Last Admin: 01/22/17 14:15 Dose: 650 mg Alprazolam (Xanax) 0.25 mg PO BID PRN; Protocol PRN Reason: Anxiety Stop: 01/28/17 12:56 Aspirin (Ecotrin) 81 mg PO DAILY [facility] Last Admin: 01/23/17 10:47 Dose: 81 mg Sodium Chloride (Sodium Chloride 0.45%) 1,000 mls @ 100 mls/hr IV .Q10H [facility] Last Admin: 01/22/17 21:58 Dose: 100 mls/hr Insulin Human Regular (Humulin R High) 0 units SC ACHS [facility] PRN Reason: Protocol Last Admin: 01/23/17 08:30 Dose: Not Given Ondansetron HCl (Zofran Inj) 4 mg IVP Q6H PRN PRN Reason: Nausea/Vomiting Pantoprazole Sodium (Protonix Inj) 40 mg IVP DAILY [facility] Last Admin: 01/23/17 10:47 Dose: 40 mg Sertraline HCl (Zoloft) 50 mg PO BID [facility] Last Admin: 01/23/17 10:47 Dose: 50 mg - Labs Labs: 01/23/17 06:45 01/23/17 06:45 PT 11.2 Seconds (9.9-11.8) 01/21/17 05:50 INR 1.04 (0.93-1.08) 01/21/17 05:50 APTT 24.2 Seconds (23.7-30.8) 01/21/17 05:50 Assessment and Plan - Assessment and Plan (Free Text) Plan: Small Bowel Series demonstrates contrast progresses through to the colon i.e. no obstruction Resume diet and advance as tolerated
[2017-01-23] MEDS: Insulin Reg-HIGH-Coverage SC SCH ×4 (08:30→22:05)
--- NOTE | 2017-01-23 08:42 | PN ---
DATE: 01/23/2017 SUBJECTIVE: The patient is lying in bed, comfortable. He took clear liquid diet yesterday without a ny nausea and vomiting, but did admit to some mild mid abdominal pain after taking liquids. He has n ot had any further bowel movements. PHYSICAL EXAMINATION: VITAL SIGNS: Reveal temperature of 98.2, blood pressure 119/71, heart rate of 65. HEENT: Reveals sclerae to be white, conjunctivae pink. NECK: Supple. CHEST: Reveals lungs to be clear. HEART: Reveals a regular rate and rhythm. ABDOMEN: Obese, soft, mildly protuberant, nontender. EXTREMITIES: Show no edema. LABORATORY DATA: Reveal white blood cell count 5.7, hemoglobin 14.2. Electrolytes are normal. IMPRESSION: A 66-year-old male with a history of colorectal cancer 2 years ago, status post colon re section, colostomy, reversal of colostomy, now with 1 day of abdominal pain, nausea and vomiting with a CT scan of the abdomen showing at least a partial small bowel obstruction with transition point in the left pelvis. The patient improved with conservative management. An NG tube could not be insert ed despite several attempts. A repeat obstructive series of the abdomen from yesterday just shows no nspecific small bowel dilatation without any obvious air-fluid levels. 1. Partial small bowel obstruction, clinically improving. RECOMMENDATIONS: 1. I will increase patient's diet to full liquid. 2. I have instructed the patient to ambulate in the hallway. Zac Delarosa MD cc: [phone] TT: 01/23/2017 08:42:04 Confirmation # [id number] Dictation # [id number] tn
[2017-01-23] MEDS ORDERED: Iohexol 240 (50 ml) ONE (11:04)
--- NOTE | 2017-01-23 13:08 | RAD ---
PROCEDURE: Small bowel series HISTORY: evaluation contrast progression COMPARISON: TECHNIQUE: Water-soluble contrast material was administered. A single contrast study was performed FINDINGS: The proximal small bowel is mildly dilated. Contrast reaches the colon within 1 hour and 15 minutes. IMPRESSION: No evidence of obstruction
[2017-01-23 19:32] VITALS: RESP 20
--- NOTE | 2017-01-24 07:51 | PN ---
DATE: 01/23/2017 The patient is a 66-year-old, seen and examined. He states he had a big bowel movement. Since then, he feels a little better. He is hungry. PHYSICAL EXAMINATION: VITAL SIGNS: He is afebrile, pulse 60, respirations 17, blood pressure 104/66. LUNGS: Bilateral good airflow, no rhonchi or crackle. HEART: S1, S2 audible. ABDOMEN: Soft, slightly distended, but has bowel sounds. NEUROLOGIC: He is awake and alert, communicative. LABORATORY EXAMINATION: WBCs 5.7, hemoglobin 14, hematocrit 42, platelets 141. Chemistry: Sodium 1 39, potassium 4.0, chloride 102, CO2 26, BUN 11, creatinine 0.9, blood sugar of 96. He had a small b owel series done that is no evidence of obstruction. ASSESSMENT AND PLAN: 1. Partial small bowel obstruction, seems to be resolving. 2. History of colorectal cancer and had abdominoperineal resection done, followed by chemotherapy an d radiation. 3. Coronary artery disease, recently had pacemaker placed and recent stress test done on 01/03 is abn ormal. The patient is scheduled to have cardiac cath done in [facility] once he is discharged from the [facility], so we will slowly advance his diet. If we tolerates, we will start him on solids from tomorr ow and will follow up his CBC and electrolytes in a.m. Sundar Hartman MD cc: [phone] TT: 01/24/2017 07:51:19 Confirmation # [id number] Dictation # [id number]
[2017-01-24 08:53] VITALS: BP 123/66; PULSE 61; TEMP 97.5; O2SAT 96
[2017-01-24] MEDS: Insulin Reg-HIGH-Coverage SC SCH (09:17)
--- NOTE | 2017-01-24 09:24 | PN ---
DATE: 01/24/2017 SUBJECTIVE: The patient is lying in bed, comfortable. He denies any nausea, vomiting or abdominal p ain. Small bowel series performed yesterday shows passage of barium into the colon at a little over an hour. There is no evidence of small bowel obstruction. He is currently on solid foods and tolera ting it well without any abdominal pain, nausea or vomiting. PHYSICAL EXAMINATION: VITAL SIGNS: Reveal temperature of 97.5, blood pressure 123/66, heart rate is 61. HEENT: Reveals sclerae to be white, conjunctivae pink. NECK: Supple. CHEST: Lungs are clear. HEART: Reveals regular rate and rhythm. ABDOMEN: Protuberant, soft, nontender. EXTREMITIES: Show no edema. LABORATORY DATA: Reveal blood sugar 114 this morning. IMPRESSION: A 66-year-old male with history of colorectal cancer, status post colon resection, tempo rary colostomy, reversal of colostomy approximately 2 years ago, admitted with abdominal pain, nausea and vomiting. His symptoms have improved with conservative therapy. Small bowel series performed y esterday does not show any evidence of obstruction. I suspect that the patient came in with a partia l small bowel obstruction which has now resolved. RECOMMENDATIONS: The patient is stable from a GI standpoint and can be discharged home with outpatie nt followup. Zac Delarosa MD cc: [phone] TT: 01/24/2017 09:23:29 Confirmation # [id number] Dictation # [id number]
[2017-01-24 11:03] LABS: MEAN CELL VOLUME 86.6 fL (80.0-105.0); MEAN CORPUSCULAR HEMOGLOBIN 29.9 pg (25.0-35.0); MEAN CORPUSCULAR HGB CONC 34.5 g/dl (31.0-37.0); MEAN PLATELET VOLUME 8.9 fl (7.0-11.0); RED CELL DISTRIBUTION WIDTH 15.3 % (11.5-14.5); WHITE BLOOD COUNT 6.1 10^3/ul (4.5-11.0)
[2017-01-24 11:20] LABS: ALB/GLOB RATIO 1.2 (1.1-1.8); ALKALINE PHOSPHATASE 63 U/L (38-133); ALT/SGPT 44 U/L (7-56); AST/SGOT 36 U/L (15-59); BILIRUBIN,TOTAL 0.9 mg/dL (0.2-1.3); BLOOD UREA NITROGEN 13 mg/dL (7-21); CALCIUM 9.5 mg/dL (8.4-10.5); CARBON DIOXIDE 28 mmol/L (21-33); CHLORIDE 101 mmol/L (98-107); GFR AFRICAN-AMERICAN > 60; GLUCOSE,RANDOM 137 mg/dL (70-110); POTASSIUM 4.2 mmol/L (3.6-5.0); SODIUM 139 mmol/L (132-148)
--- NOTE | 2017-01-24 13:08 | DS ---
The patient is a 66-year-old, seen and examined, lying in bed, had normal regular breakfast this morn ing. Seems to be holding. No nausea, vomiting, diarrhea. PHYSICAL EXAMINATION: VITAL SIGNS: He is afebrile, pulse 61, respirations 20, blood pressure 123/66. LUNGS: Bilateral fair airflow, no rhonchi or crackle. HEART: S1, S2 audible. ABDOMEN: Soft, nontender, obese. No hepatosplenomegaly. NEUROLOGIC: He is awake and alert, communicative, ambulatory. LABORATORY EXAM: His WBC is 6.1, hemoglobin 15, hematocrit 44, platelet 146. Chemistry: Sodium 139 , potassium 4.2, chloride 101, CO2 of 28, BUN 13, creatinine 1.0, blood sugar 137. ASSESSMENT: 1. Status post partial small bowel obstruction, probably secondary to adhesions. 2. History of colorectal cancer, status post abdominoperineal resection in the remote past, almost 2 years ago, followed by radiation and chemo. 3. Non-insulin dependent diabetes. 4. Hypertension. 5. Obesity. 6. Abnormal stress test. The patient is scheduled to have catheterization next week. PLAN: The patient is tolerating his food. He can be discharged home today and he can follow up with [facility] [place]. He will follow up with Dr. Jain as outpatient. He will resume low fiber diet. He was told if any problems, he should call me in my office. Sundar Hartman MD cc: [phone] TT: 01/24/2017 13:08:26 [email or web address]
--- NOTE | 2017-01-24 14:23 | CP.PCM.PN ---
Subjective - Date & Time of Evaluation Date of Evaluation: 01/24/17 Time of Evaluation: 10:10 - Subjective Subjective: Patient seen and examined at bedside. He is comfortable, passing gas as well as BM. Abdominal pain is resolved. He will be discharged home today by primary to f /u with PCP, oncology as well as cardiology. Objective - Vital Signs/Intake and Output Vital Signs (last 24 hours): Temp Pulse Resp BP Pulse Ox 97.5 F L 61 20 123/66 96 01/24/17 06:00 01/24/17 06:00 01/24/17 06:00 01/24/17 06:00 01/24/17 06:00 Intake and Output: 01/24/17 01/24/17 06:59 18:59 Intake Total 580 Balance 580 - Labs Labs: 01/24/17 10:50 01/24/17 10:50 PT 11.2 Seconds (9.9-11.8) 01/21/17 05:50 INR 1.04 (0.93-1.08) 01/21/17 05:50 APTT 24.2 Seconds (23.7-30.8) 01/21/17 05:50 - Constitutional Appears: Non-toxic, No Acute Distress - Head Exam Head Exam: ATRAUMATIC, NORMOCEPHALIC - Eye Exam Eye Exam: EOMI, PERRL - ENT Exam ENT Exam: Mucous Membranes Moist - Neck Exam Neck Exam: Full ROM, Normal Inspection - Respiratory Exam Respiratory Exam: Clear to Ausculation Bilateral. absent: Rales, Rhonchi, Wheezes - Cardiovascular Exam Cardiovascular Exam: REGULAR RHYTHM, +S1, +S2 - GI/Abdominal Exam GI & Abdominal Exam: Soft. absent: Distended, Tenderness - Extremities Exam Extremities Exam: absent: Calf Tenderness, Pedal Edema - Back Exam Back Exam: NORMAL INSPECTION - Neurological Exam Neurological Exam: Alert, Awake, Oriented x3 - Psychiatric Exam Psychiatric exam: Normal Affect, Normal Mood - Skin Skin Exam: Normal Color, Warm Assessment and Plan - Assessment and Plan (Free Text) Assessment: 66 M with hx colorectal ca presenting with SBO now resolved. Patient is doing well. He is passing BM's daily. He will be discharged by PCP today. He is instructed to f/u with oncology and cardiology for further management of his chronic disease. Patient is advised to return to the ED or call his PCP if symptoms return.
== END 2017-01-24 13:25 | disposition home or self-care (01) | DRG 390 ==
LOC: ED 05:30 → EROBSV 07:12 → OBSVTOIN 10:54 → ERH 10:54 → 3RSO 13:46
PROVIDERS: ADMIT Internal Medicine; ATTEND Internal Medicine
DX: K56.5 Intestinal adhesions [bands] with obstruction (postinfection) (principal); E11.22 Type 2 diabetes mellitus with diabetic chronic kidney disease; I12.9 Hypertensive chronic kidney disease with stage 1 through stage 4 chronic kidney disease, or unspecified chronic kidney disease; Z90.49 Acquired absence of other specified parts of digestive tract; N18.9 Chronic kidney disease, unspecified; E66.9 Obesity, unspecified; E78.5 Hyperlipidemia, unspecified; I25.10 Atherosclerotic heart disease of native coronary artery without angina pectoris; J45.909 Unspecified asthma, uncomplicated; Z79.82 Long term (current) use of aspirin; Z79.899 Other long term (current) drug therapy; Z85.048 Personal history of other malignant neoplasm of rectum, rectosigmoid junction, and anus; Z87.01 Personal history of pneumonia (recurrent); Z87.891 Personal history of nicotine dependence; Z95.0 Presence of cardiac pacemaker; R40.2412 Glasgow coma scale score 13-15, at arrival to emergency department; R19.7 Diarrhea, unspecified; K56.7 Ileus, unspecified; K52.9 Noninfective gastroenteritis and colitis, unspecified

== ENCOUNTER 2017-09-21 13:37 | Inpatient (IN) | payer MEDICARE, OTHER ==
--- NOTE | 2017-09-21 14:16 | ED PDOC ---
Arrival/HPI - General Time Seen by Provider: 09/21/17 14:02 Historian: Patient - History of Present Illness Narrative History of Present Illness (Text): 09/21/17 14:15 A 67 year old male, whose past medical history includes pacemaker, presents to the emergency department complaining of dizziness and a mild headache for the past 2-3 hours. Patient notes associated nausea, mild shortness of breath and one episode of chest pain that lasted approximately 5-10 minutes. Patient reports feeling very stressed lately and states his symptoms began today shortly after a stressful event. Patient denies any fever, chills, vomiting, abdominal pain or any other complaints. PMD: Dr. Hartman Time/Duration: Other (2-3 hours) Past Medical History - Provider Review Nursing Documentation Reviewed: Yes - Infectious Disease Hx of Infectious Diseases: None - Cardiac Hx Hypertension: Yes Hx Pacemaker: Yes - Pulmonary Hx Respiratory Disorders: Yes Hx Asthma: Yes Hx Pneumonia: Yes - Neurological Hx Neurological Disorder: No - HEENT Hx HEENT Disorder: Yes Hx Cataracts: Yes - Renal Hx Renal Disorder: Yes - Endocrine/Metabolic Hx Endocrine Disorders: Yes Hx Diabetes Mellitus Type 2: Yes - Hematological/Oncological Hx Blood Disorders: Yes Hx Cancer: Yes (colorectal) - Integumentary Hx Dermatological Disorder: No - Musculoskeletal/Rheumatological Hx Falls: No - Gastrointestinal Hx Gastrointestinal Disorders: Yes Hx Colostomy: Yes - Genitourinary/Gynecological Hx Genitourinary Disorders: No - Psychiatric Hx Emotional Abuse: No Hx Physical Abuse: No Hx Substance Use: No - Surgical History Other/Comment: INGUINAL HERNIA REPAIR,COLOSTOMY REVERSED,PACEMAKER - Anesthesia Hx Anesthesia Reactions: No Hx Malignant Hyperthermia: No - Suicidal Assessment Feels Threatened In Home Enviroment: No Family/Social History - Physician Review Nursing Documentation Reviewed: Yes Family/Social History: No Known Family HX Smoking Status: Former Smoker Hx Alcohol Use: Yes (OCCASIONALLY) Hx Substance Use: No Allergies/Home Meds Allergies/Adverse Reactions: Allergies No Known Allergies Allergy (Verified 09/21/17 14:16) Review of Systems - Physician Review All systems were reviewed & negative as marked: Yes - Review of Systems Constitutional: absent: Fevers, Night Sweats Respiratory: SOB Cardiovascular: Chest Pain Gastrointestinal: Nausea. absent: Abdominal Pain, Vomiting Neurological: Headache, Dizziness Physical Exam Vital Signs Reviewed: Yes Vital Signs Temp Pulse Resp BP Pulse Ox 09/21/17 18:42 110/56 L 09/21/17 18:25 98.4 F 70 24 106/49 L 98 09/21/17 16:00 99.7 F H 67 20 144/57 L 98 09/21/17 14:13 99.2 F 68 17 120/79 95 Temperature: Afebrile Blood Pressure: Normal Pulse: Regular Respiratory Rate: Normal Appearance: Positive for: Well-Appearing, Non-Toxic, Comfortable Pain Distress: None Mental Status: Positive for: Alert and Oriented X 3 - Systems Exam Head: Present: Atraumatic, Normocephalic Pupils: Present: PERRL Extroacular Muscles: Present: EOMI Conjunctiva: Present: Normal Mouth: Present: Moist Mucous Membranes Neck: Present: Normal Range of Motion Respiratory/Chest: Present: Clear to Auscultation, Good Air Exchange. No: Respiratory Distress, Accessory Muscle Use Cardiovascular: Present: Regular Rate and Rhythm, Normal S1, S2. No: Murmurs Abdomen: Present: Normal Bowel Sounds. No: Tenderness, Distention, Peritoneal Signs Back: Present: Normal Inspection Upper Extremity: Present: Normal Inspection, NORMAL PULSES. No: Cyanosis, Edema Lower Extremity: Present: Normal Inspection, NORMAL PULSES. No: Edema Neurological: Present: GCS=15, Speech Normal Skin: Present: Warm, Dry, Normal Color. No: Rashes Psychiatric: Present: Alert, Oriented x 3, Normal Insight, Normal Concentration Medical Decision Making ED Course and Treatment: 09/21/17 14:15 EKG shows demand paced maker at 66 BPM with right QRS LAD, similar to prior on 01/21/17. Interpreted by me. - Lab Interpretations Microbiology Results: Microbiology Results 09/21/17 15:00 Blood-Venous Blood Culture - Preliminary NO GROWTH AFTER 4 DAYS 09/21/17 14:25 Blood-Venous Blood Culture - Preliminary NO GROWTH AFTER 4 DAYS 09/21/17 16:00 Urine Urine Culture - Final Gram Positive Cocci Lab Results: 09/21/17 14:30 09/21/17 14:30 Lab Results 09/21/17 14:30: Sodium 139, Potassium 4.5, Chloride 101, Carbon Dioxide 28, Anion Gap 15, BUN 16, Creatinine 1.0, Est GFR ( Amer) > 60, Est GFR (Non- Af Amer) > 60, Random Glucose 130 H, Calcium 9.2, Total Bilirubin 1.1, AST 50, ALT 49, Alkaline Phosphatase 69, Troponin I 0.01, NT-Pro-B Natriuret Pep 727 H, Total Protein 7.5, Albumin 4.2, Globulin 3.3, Albumin/Globulin Ratio 1.3 09/21/17 14:30: WBC 9.4 D, RBC 4.69, Hgb 14.5, Hct 43.0, MCV 91.7, MCH 30.9, MCHC 33.7, RDW 14.6 H, Plt Count 126, MPV 9.6, Gran % 88.7 H, Lymph % (Auto) 4.8 L, [place] % (Auto) 4.8, Eos % (Auto) 1.6, Baso % (Auto) 0.1, Gran # 8.34 H, Lymph # 0.5 L, [place] # 0.5, Eos # 0.2, Baso # 0.01, Neutrophils % (Manual) 96 H, Lymphocytes % (Manual) 3 L, Monocytes % (Manual) 1, Platelet Evaluation Normal 09/21/17 14:25: Influenza Typ A,B (EIA) Negative for flu a/b - RAD Interpretation Radiology Orders: 09/21/17 14:19 CHEST PORTABLE [RAD] Stat 09/21/17 14:22 HEAD W/O CONTRAST [CT] Stat 09/21/17 16:09 CHEST W/O CONTRAST [CT] Stat - Medication Orders Current Medication Orders: Discontinued Medications Acetaminophen (Tylenol 325mg Tab) 975 mg PO STAT STA Stop: 09/21/17 14:24 Last Admin: 09/21/17 14:50 Dose: 975 mg MAR Pain/Vitals Document 09/21/17 14:50 EQ (Rec: 09/21/17 14:50 EQ [id number]) Pain Reassessment Is This A Pain ReAssessment? No Sleep Is patient sleeping during reassessment? No Presence of Pain Presence of Pain Yes Pain Scale Used Pain Scale Used Numeric Acetaminophen (Tylenol 325mg Tab) 650 mg PO Q6H PRN PRN Reason: Fever >100.4 F Last Admin: 09/22/17 21:12 Dose: 650 mg MAR Pain/Vitals Document 09/22/17 21:12 KP (Rec: 09/22/17 21:12 KP [facility] [id number]) Vitals Temperature (97.6 F-99.6 F) 102.7 F Temperature Source Oral Re-Assess: MAR Pain/Vitals Document 09/22/17 22:12 (Rec: 09/22/17 22:13 [id number] Pain Reassessment Is This A Pain ReAssessment? Yes Sleep Is patient sleeping during reassessment? No Presence of Pain Presence of Pain No Albuterol/Ipratropium (Duoneb 3 Mg/0.5 Mg (3 Ml) Ud) 3 ml IH Q2H PRN PRN Reason: Shortness of Breath Albuterol/Ipratropium (Duoneb 3 Mg/0.5 Mg (3 Ml) Ud) 3 ml IH [id number] [facility] Last Admin: 09/23/17 13:05 Dose: 3 ml Alprazolam (Xanax) 0.25 mg PO BID PRN; Protocol PRN Reason: Anxiety Stop: 09/28/17 18:36 Doxycycline Hyclate (Doryx) 100 mg PO Q12 [facility] PRN Reason: Protocol Stop: 10/01/17 22:01 Last Admin: 09/23/17 10:05 Dose: 100 mg Lactated Ringer's (Lactated Ringer's) 1,000 mls @ 999 mls/hr IV .Q1H1M [facility] Stop: 09/21/17 15:45 Last Admin: 09/21/17 14:50 Dose: 999 mls/hr eMAR Start Stop Document 09/21/17 14:50 EQ (Rec: 09/21/17 14:50 EQ [id number]) Intravenous Solution Start Date 09/21/17 Start Time 14:50 Ceftriaxone Sodium (Rocephin 1 Gram Ivpb) 1 gm in 100 mls @ 200 mls/hr IVPB STAT STA PRN Reason: Protocol Stop: 09/21/17 18:11 Last Admin: 09/21/17 18:21 Dose: 200 mls/hr eMAR Start Stop Document 09/21/17 18:21 EQ (Rec: 09/21/17 18:21 EQ [id number]) Intravenous Solution Start Date 09/21/17 Start Time 18:21 Azithromycin (Zithromax 500mg In Ns) 500 mg in 250 mls @ 167 mls/hr IVPB STAT STA PRN Reason: Protocol Stop: 09/21/17 19:11 Last Admin: 09/21/17 18:56 Dose: 167 mls/hr eMAR Start Stop Document 09/21/17 18:56 EQ (Rec: 09/21/17 18:56 EQ [id number]) Intravenous Solution Start Date 09/21/17 Start Time 18:56 Lactated Ringer's (Lactated Ringer's) 1,000 mls @ 999 mls/hr IV .Q1H1M [place] Last Admin: 09/21/17 18:21 Dose: 999 mls/hr eMAR Start Stop Document 09/21/17 18:21 EQ (Rec: 09/21/17 18:21 EQ [id number]) Intravenous Solution Start Date 09/21/17 Start Time 18:21 Ceftriaxone Sodium (Rocephin 1 Gram Ivpb) 1 gm in 100 mls @ 100 mls/hr IVPB DAILY [facility] PRN Reason: Protocol Last Admin: 09/23/17 10:05 Dose: 100 mls/hr eMAR Start Stop Document 09/23/17 10:05 LMN (Rec: 09/23/17 10:05 [facility]N [id number] Intravenous Solution Start Date 09/23/17 Start Time 10:05 Azithromycin (Zithromax 500mg In Ns) 500 mg in 250 mls @ 167 mls/hr IVPB DAILY [facility] PRN Reason: Protocol Last Admin: 09/22/17 08:51 Dose: 167 mls/hr eMAR Start Stop Document 09/22/17 08:51 MD (Rec: 09/22/17 08:52 MD [id number] Intravenous Solution Start Date 09/22/17 Start Time 08:52 End time 09:52 Insulin Human Lispro (Humalog Med) 0 units SC ACHS [facility] PRN Reason: Protocol Last Admin: 09/23/17 08:29 Dose: Not Given Non-Admin Reason: Blood Sugar Parameter Metformin HCl (Glucophage) 500 mg PO BID [facility] Last Admin: 09/23/17 10:05 Dose: 500 mg Metoprolol Succinate (Toprol Xl) 25 mg PO BRK [facility] Last Admin: 09/23/17 08:28 Dose: Not Given Non-Admin Reason: BP Parameters Not Met MAR Pulse and Blood Pressure Document 09/23/17 08:28 LMN (Rec: 09/23/17 08:29 LMN [facility] [id number]) Pulse Pulse Rate (60-90) 58 Blood Pressure Blood Pressure (100/60-150/90) 102/48 Ondansetron HCl (Zofran Inj) 4 mg IVP ONCE ONE Stop: 09/21/17 14:20 Last Admin: 09/21/17 14:50 Dose: 4 mg IVP Administration Document 09/21/17 14:50 EQ (Rec: 09/21/17 14:50 EQ [id number]) Charges for Administration # of IVP Administrations 1 Ondansetron HCl (Zofran Inj) 4 mg IVP Q6H PRN PRN Reason: Nausea/Vomiting Oseltamivir Phosphate (Tamiflu Cap) 75 mg PO BID [facility] PRN Reason: Protocol Stop: 09/26/17 18:33 Last Admin: 09/23/17 10:05 Dose: 75 mg Oxycodone/Acetaminophen (Percocet 5/325 Mg Tab) 1 tab PO Q4H PRN PRN Reason: Pain, moderate (4-7) Stop: 09/24/17 18:38 Last Admin: 09/22/17 12:31 Dose: 1 tab [facility] Pain Assessment Document 09/22/17 12:31 MD (Rec: 09/22/17 12:32 [id number] Pain Reassessment Is this a pain reassessment? No Sleep Is patient sleeping during reassessment? No Presence of Pain Presence of Pain Yes Pain Scale Used Pain Scale Used Numeric Location Pain Location Body Site Chest Description Description Intermittent Intensity of Pain at present 7 Pain Behavior Irritability Re-Assess: [facility] Pain Assessment Document 09/22/17 13:31 (Rec: 09/22/17 13:49 [facility]) Pain Reassessment Is this a pain reassessment? Yes Sleep Is patient sleeping during reassessment? No Presence of Pain Presence of Pain No Pantoprazole Sodium (Protonix Ec Tab) 40 mg PO 0630 [facility] Last Admin: 09/23/17 06:50 Dose: 40 mg Pneumococcal Polyvalent Vaccine (Pneumovax 23 Vaccine) 0.5 ml IM .ONCE ONE Stop: 09/21/17 23:12 Sertraline HCl (Zoloft) 50 mg PO DAILY [facility] Last Admin: 09/23/17 10:05 Dose: 50 mg - Scribe Statement The provider has reviewed the documentation as recorded by the Briseyda Kearney Provider Scribe Attestation: All medical record entries made by the Scribsmiley were at my direction and personally dictated by me. I have reviewed the chart and agree that the record accurately reflects my personal performance of the history, physical exam, medical decision making, and the department course for this patient. I have also personally directed, reviewed, and agree with the discharge instructions and disposition. Disposition/Present on Arrival - Present on Arrival Any Indicators Present on Arrival: No History of DVT/PE: No History of Uncontrolled Diabetes: No Urinary Catheter: No History Surgical Site Infection Following: None - Disposition Have Diagnosis and Disposition been Completed?: Yes Diagnosis: Pneumonia Disposition: HOSPITALIZED Disposition Time: 17:43 Condition: STABLE
[2017-09-21] MEDS ORDERED: Lactated Ringer's 1,000 ML IV SCH ×2 (14:45→17:45)
[2017-09-21 14:56] LABS: BASO # 0.01 K/mm3 (0.0-2.0); BASO % 0.1 % (0.0-3.0); EOS # 0.2 (0.0-0.7); EOS % 1.6 % (1.5-5.0); GRAN # 8.34 (1.4-6.5); GRAN % 88.7 % (50.0-68.0); HEMOGLOBIN 14.5 g/dL (14.0-18.0); LYMPH # 0.5 (1.2-3.4); LYMPH % 4.8 % (22.0-35.0); MEAN CELL VOLUME 91.7 fl (80.0-105.0); MEAN CORPUSCULAR HEMOGLOBIN 30.9 pg (25.0-35.0); MEAN CORPUSCULAR HGB CONC 33.7 g/dl (31.0-37.0); MEAN PLATELET VOLUME 9.6 fl (7.0-11.0); MONO # 0.5 (0.1-0.6); MONO % 4.8 % (1.0-6.0); PLATELET COUNT 126 10^3/uL (120.0-450.0); RBC 4.69 10^6/uL (3.5-6.1); RED CELL DISTRIBUTION WIDTH 14.6 % (11.5-14.5); WHITE BLOOD COUNT 9.4 10^3/ul (4.5-11.0)
[2017-09-21 15:07] LABS: ALB/GLOB RATIO 1.3 (1.1-1.8); ALBUMIN 4.2 g/dL (3.0-4.8); ALT/SGPT 49 U/L (7-56); AST/SGOT 50 U/L (17-59); BLOOD UREA NITROGEN 16 mg/dL (7-21); CALCIUM 9.2 mg/dL (8.4-10.5); GFR AFRICAN-AMERICAN > 60; GFR NON-AFRICAN AMERICAN > 60
[2017-09-21 15:15] LABS: B-TYPE NATRIURETIC PEPTIDE 727 pg/mL (0-450); TROPONIN I 0.01 ng/mL
[2017-09-21 15:30] LABS: NEUTROPHIL 96 % (50.0-70.0)
[2017-09-21 15:31] LABS: LYMPHOCYTE 3 % (22.0-35.0); MONOCYTE 1 % (1.0-6.0); PLATELET ESTIMATE NORMAL (NORMAL)
--- NOTE | 2017-09-21 15:32 | CT ---
PROCEDURE: CT scan brain dated 09/21/2017 HISTORY: Headache COMPARISON: Comparison made with CT scan brain dated 03/12/2016 TECHNIQUE: Axial computed tomography images were obtained through the head/brain without intravenous contrast. Radiation dose: Total exam DLP = 825.73 mGy-cm. This CT exam was performed using one or more of the following dose reduction techniques: Automated exposure control, adjustment of the mA and/or kV according to patient size, and/or use of iterative reconstruction technique. FINDINGS: HEMORRHAGE: No acute parenchymal, subarachnoid or extra-axial hemorrhage. BRAIN: There appears to be some very minimal chronic periventricular white matter ischemic changes. Mild slightly central volume loss. VENTRICLES: No obstructive hydrocephalus. CALVARIUM: No acute calvarial fractures PARANASAL SINUSES: Unremarkable as visualized. No significant inflammatory changes. MASTOID AIR CELLS: Minor mucosal thickening seen within in the ethmoid air complex extending slightly into the inferior margin of the frontal sinus. OTHER FINDINGS: Changes of bilateral cataract surgery again noted. IMPRESSION: No acute intracranial hemorrhage. Suspect minimal chronic periventricular white matter ischemic changes. Mild slightly central volume loss Minor mucoperiosteal inflammatory changes within the aforementioned paranasal sinuses
--- NOTE | 2017-09-21 17:28 | CT ---
PROCEDURE: CT scan chest dated 09/21/2017. HISTORY: Fever and SOB. Rule out pneumonia COMPARISON: Comparison made with chest radiograph and CT scan chest dated 09/21/2017 and CTA chest 07/05/2016 respectively. TECHNIQUE: Contiguous axial images were obtained through the chest without intravenous contrast enhancement. Sagittal and coronal reconstructions were performed. Radiation dose (DLP): 934.25 mGy-cm. This CT exam was performed using one or more of the following dose reduction techniques: Automated exposure control, adjustment of the mA and/or kV according to patient size, and/or use of iterative reconstruction technique. FINDINGS: LUNGS: Patchy infiltrate changes seen in the superior aspect left lower lobe likely representing pneumonitis and or pneumonia. Minor patchy opacities in the left lung base as well some of which could represent developing infiltrate and/or atelectasis with some chronic scarring. Minor atelectasis seen in the medial aspect right lung base. MEDIASTINUM: Heart size is within range of normal. No significant pericardial effusion. No change single lead pacemaker. Ascending thoracic aorta measures approximately 3.6 cm and descending thoracic aorta measures approximately 2.8 cm. Three-vessel arch. Pulmonary trunk measures approximately 3.95 cm; rule out underlying mild pulmonary hypertension. Multiple small nonspecific mediastinal lymph nodes are present the largest in the right parasagittal precarinal region measuring approximately 18.5 mm in greatest length. Evaluation for hilar adenopathy is limited due to the lack of circulating intravenous contrast material. There is a small hiatal hernia with minimal wall thickening likely due to protrusion of gastric mucosa. PLEURA: No evidence of effusion or pneumothorax. BONES: Mild multilevel degenerative spondylosis of the thoracic spine. There are no acute compression fractures no retropulsed fragments. UPPER ABDOMEN: Grossly unremarkable. OTHER FINDINGS: None. IMPRESSION: Patchy infiltrate changes seen in the superior aspect left lower lobe likely representing pneumonitis and or developing pneumonia. . Vague patchy opacities in the left lung base along with some mild atelectasis and or scarring. Minor atelectasis medial aspect right lung base. Multiple mediastinal lymph nodes the largest on the right para sagittal precarinal region measuring approximately 18.5 mm in greatest length
--- NOTE | 2017-09-21 17:30 | RAD ---
HISTORY: sob COMPARISON: No prior. FINDINGS: LUNGS: Patchy opacity seen in the left mid to lower lung zone ; rule out developing lower lobe infiltrate. Suspect minor bibasilar atelectasis or scarring. PLEURA: No significant pleural effusion identified, no pneumothorax apparent. CARDIOVASCULAR: Cardiomegaly. In situ single lead pacemaker. OSSEOUS STRUCTURES: No significant abnormalities. VISUALIZED UPPER ABDOMEN: Normal. OTHER FINDINGS: None. IMPRESSION: No active disease. Patchy opacity left mid to lower lung field could represent developing lower lobe infiltrate.
[2017-09-21] MEDS ORDERED: Azithromycin 500MG/NS 250ml 500 MG/250 ML BAG IVPB STA (17:42)
[2017-09-21] MEDS ORDERED: cefTRIAXone 1 gm 1 GM/100 ML BAG IVPB STA (17:42)
[2017-09-21] MEDS ORDERED: Albuterol-Ipratrop 3 mg / 0.5 (3 ml) UD IH PRN (18:30)
[2017-09-21] MEDS: Albuterol-Ipratrop 3 mg / 0.5 (3 ml) UD IH SCH (19:19)
--- NOTE | 2017-09-21 20:02 | CARD ---
APPROVED REPORT EKG Measurement Heart [id number] <Conclusion> Electronic ventricular pacemaker
[2017-09-21] MEDS ORDERED: Insulin Reg-MEDIUM-Coverage SC SCH (22:00)
[2017-09-21] MEDS: Insulin Lispro (humaLOG) MEDIUM Coverage SC SCH (22:00)
[2017-09-21 23:11] VITALS: BMI 34.4
[2017-09-21] MEDS ORDERED: Pneumococcal 23-Valent Vaccine IM ONE (23:11)
[2017-09-21] MEDS ORDERED: Influenza Vaccine 60 mcg/0.5 mL SYR (4YR UP) IM ONE (23:11)
[2017-09-22] MEDS: Albuterol-Ipratrop 3 mg / 0.5 (3 ml) UD IH SCH ×4 (01:58→19:45)
[2017-09-22] MEDS: Oxycodone/Acetaminophen 5/325 mg Tab PO PRN ×2 (05:17→12:31)
[2017-09-22] MEDS: Pantoprazole 40 mg EC Tab PO SCH (06:11)
[2017-09-22 07:35] VITALS: RESP 20
[2017-09-22] MEDS: Insulin Lispro (humaLOG) MEDIUM Coverage SC SCH ×4 (08:23→21:09)
[2017-09-22] MEDS: Metoprolol Succinate 25 mg XL Tab PO SCH (08:47)
[2017-09-22] MEDS: cefTRIAXone 1 gm 1 GM/100 ML BAG IVPB SCH ×2 (08:51→13:51)
[2017-09-22] MEDS ORDERED: Azithromycin 500MG/NS 250ml 500 MG/250 ML BAG IVPB SCH (10:00)
[2017-09-23] MEDS: Albuterol-Ipratrop 3 mg / 0.5 (3 ml) UD IH SCH ×3 (01:11→13:05)
--- NOTE | 2017-09-23 01:21 | CON ---
DATE: 09/22/2017 The patient is in room 560, bed 1. CHIEF COMPLAINT: Fever and cough times several days. HISTORY OF PRESENT ILLNESS: This is a 67-year-old male with history of rectal cancer, colon resection and he had a colostomy and a reversal of his colostomy years ago. He has history of diabetes, hypertension, chronic back pain, neuropathy, degenerative joint pain, spinal stenosis, obesity with a BMI of 34 who was admitted with cough and found to have infiltrates. Infectious disease consultation requested. REVIEW OF SYSTEM: Reveals the patient has fevers and chills, cough, shortness of breath, cough is productive, yellowish in color. No chest pain. No abdominal pain, diarrhea, or constipation. PAST MEDICAL HISTORY: Significant for diabetes, hypertension, chronic back pain, neuropathy, degenerative joint disease, spinal stenosis, and obesity with BMI of 34. PAST SURGICAL HISTORY: Significant for pacemaker one year ago, colon resection and reversal of colostomy. ALLERGIES: THE PATIENT HAS NO KNOWN ALLERGIES. MEDICATIONS AT HOME: Reveals the patient's are reviewed. PHYSICAL EXAMINATION: GENERAL: He is in bed. He is awake and alert, answering questions appropriately. VITAL SIGNS: Temperature of 100.4, respiratory rate of 24, heart rate of 64, blood pressures 110/50. HEENT: Unremarkable. NECK: Supple. LUNGS: Have decreased breath sounds. HEART: Normal S1, S2. ABDOMEN: Soft and nontender. LABORATORY EXAMINATION: Reveals the patient's white count of 9.4, hemoglobin of 14, platelets of 126, 88% granulocytosis. Chemistries reveals a BUN of 16, creatinine of 1.0. Random glucose is 130, BNP 727, and serology for influenza is negative. Microbiology is pending. Chest x-ray is positive and CAT scan is positive of the chest, CAT scan of the head is negative. ASSESSMENT AND PLAN: This is a 67-year-old male with rectal cancer, diabetes, hypertension, chronic back pain, neuropathy, degenerative joint disease and spinal stenosis, obesity with BMI of 34. Pacemaker and colon resection history, now presented on this admission with: 1. Sepsis with left lower lobe community-acquired pneumonia. We will treat the patient with ceftriaxone and Tamiflu and the patient's EKG shows a QTC to be 478. We will discontinue azithromycin and give doxycycline. Although this patient does have a pacemaker and procalcitonin and urine for Legionella antigen and we will follow closely with you. Nba Russell MD [facility] # [id number]
[2017-09-23] MEDS: Pantoprazole 40 mg EC Tab PO SCH (06:50)
[2017-09-23 07:39] VITALS: TEMP 98.4; O2SAT 93
[2017-09-23] MEDS: Metoprolol Succinate 25 mg XL Tab PO SCH (08:28)
[2017-09-23 08:29] VITALS: BP 102/48; PULSE 58
[2017-09-23] MEDS: Insulin Lispro (humaLOG) MEDIUM Coverage SC SCH (08:29)
[2017-09-23] MEDS: cefTRIAXone 1 gm 1 GM/100 ML BAG IVPB SCH (10:05)
--- NOTE | 2017-09-23 13:15 | PN ---
DATE: 09/23/2017 SUBJECTIVE: The patient is in bed in no acute distress, and nontoxic. PHYSICAL EXAMINATION: VITAL SIGNS: On exam, temperature is 98, blood pressure is 103/40, and respiratory rate of 20. HEENT: Examination of HEENT is unremarkable. NECK: Supple. LUNGS: Have decreased breath sounds. HEART: Normal S1 and S2. GASTROINTESTINAL: Abdominal examination is soft. LABORATORY DATA: Laboratory examination reveals a white count of 9.4, hemoglobin of 14, and platelets of 126. Chemistries are noted. Serology; his influenza is negative. Urine for Legionella antigen is negative. Microbiology reveals the blood cultures are no growth. The patient had a CAT scan of the chest, patchy infiltrate changes. The patient's procalcitonin is pending. Sputum culture is pending. ASSESSMENT AND PLAN: This is a 67-year-old male with history of colon and rectal cancer, diabetes, hypertension, chronic back pain, neuropathy, degenerative joint disease, spinal stenosis, pacemaker and colon resection by history, who was admitted on this admission with sepsis with a left lower lobe community-acquired pneumonia whose has influenza at this time and they hospitalized in the hospital. Currently on ceftriaxone, Tamiflu and doxycycline. We are waiting for the procalcitonin and the patient did have a fever up to 102.7 last night. We will check on the final culture results of the blood, sputum and urine. Nba Russell MD
== END 2017-09-23 15:41 | disposition home or self-care (01) | DRG 871 ==
LOC: ED 13:37 → ERH 17:43 → 5RNO 19:13
PROVIDERS: ADMIT Internal Medicine; ATTEND Internal Medicine
PROC: 3E0F7GC Introduction of Other Therapeutic Substance into Respiratory Tract, Via Natural or Artificial Opening (ICD-10-PCS; principal; 2017-09-21)
DX: A41.9 Sepsis, unspecified organism (principal); J18.9 Pneumonia, unspecified organism; E11.40 Type 2 diabetes mellitus with diabetic neuropathy, unspecified; G89.29 Other chronic pain; I10 Essential (primary) hypertension; E66.9 Obesity, unspecified; Z68.34 Body mass index [BMI] 34.0-34.9, adult; M48.00 Spinal stenosis, site unspecified; Z85.048 Personal history of other malignant neoplasm of rectum, rectosigmoid junction, and anus; Z95.0 Presence of cardiac pacemaker

== ENCOUNTER 2018-01-25 10:06 | Inpatient (IN) | payer MEDICARE, OTHER ==
[2018-01-25] MEDS ORDERED: Ipratropium 0.02% Inhal Soln (0.5 mg/2.5 ml) UD IH STA (10:21)
--- NOTE | 2018-01-25 10:56 | RAD ---
HISTORY: Sepsis Patient COMPARISON: 09/21/2017 FINDINGS: LUNGS: There is increasing vascular congestion and increasing perihilar infiltrates PLEURA: No significant pleural effusion identified, no pneumothorax apparent. CARDIOVASCULAR: Normal. OSSEOUS STRUCTURES: No significant abnormalities. VISUALIZED UPPER ABDOMEN: Normal. OTHER FINDINGS: Single lead pacemaker IMPRESSION: Increase in perihilar infiltrates and vascular congestion. The pattern is most consistent with CHF
--- NOTE | 2018-01-25 11:05 | ED PDOC ---
Arrival/HPI - General Chief Complaint: Respiratory Distress Time Seen by Provider: 01/25/18 10:12 Historian: Patient - History of Present Illness Narrative History of Present Illness (Text): 01/25/18 10:58 A 67 year old male former smoker, status post pacemaker placement, whose past medical history includes hypertension, CAD, colorectal cancer,colostomy reversal , pacemaker "placed due to bradycardia," and recent admission on 10/15/17 for bilateral pneumonia, presents to the emergency department with complaints of shortness of breath, dry cough, and a fever that began last night. The patient denies any abdominal pain, nausea, diarrhea, or any other complaints at this time. Time/Duration: 24 hours Symptom Onset: Gradual Symptom Course: Unchanged Context: Home Past Medical History - Provider Review Nursing Documentation Reviewed: Yes - Travel History Have you recently traveled outside [place] w/in the past 3 mons?: No - Infectious Disease Hx of Infectious Diseases: None - Cardiac Hx Hypertension: Yes Hx Pacemaker: Yes - Pulmonary Hx Respiratory Disorders: Yes Hx Asthma: Yes Hx Pneumonia: Yes - Neurological Hx Neurological Disorder: No - HEENT Hx HEENT Disorder: Yes Hx Cataracts: Yes - Renal Hx Renal Disorder: Yes - Endocrine/Metabolic Hx Endocrine Disorders: Yes Hx Diabetes Mellitus Type 2: Yes - Hematological/Oncological Hx Chemotherapy: Yes (and radiation) Other/Comment: colostomy reversal 04/26/16 - Integumentary Other/Comment: small scab to left ft bunyon 0.5cm round c/o pain radiates to left great toe, dry skin both feet, face flushed - Musculoskeletal/Rheumatological Hx Back Pain: Yes Hx Gout: Yes (toes) Other/Comment: tibia tendonitis - Gastrointestinal Hx Gastrointestinal Disorders: Yes Hx Colostomy: Yes - Genitourinary/Gynecological Hx Genitourinary Disorders: No - Psychiatric Hx Emotional Abuse: No Hx Physical Abuse: No Hx Substance Use: No - Surgical History Other/Comment: INGUINAL HERNIA REPAIR,COLOSTOMY REVERSED,PACEMAKER - Anesthesia Hx Anesthesia Reactions: No Hx Malignant Hyperthermia: No - Suicidal Assessment Feels Threatened In Home Enviroment: No Family/Social History - Physician Review Nursing Documentation Reviewed: Yes Family/Social History: No Known Family HX Smoking Status: Former Smoker Hx Alcohol Use: Yes (OCCASIONALLY) Hx Substance Use: No Allergies/Home Meds Allergies/Adverse Reactions: Allergies No Known Allergies Allergy (Verified 01/25/18 10:18) Review of Systems - Physician Review All systems were reviewed & negative as marked: Yes - Review of Systems Constitutional: Fevers Respiratory: SOB, Cough (dry) Gastrointestinal: absent: Abdominal Pain Physical Exam Vital Signs Reviewed: Yes Vital Signs Temp Pulse Resp BP Pulse Ox 01/25/18 14:40 98.3 F 66 20 116/62 98 01/25/18 12:58 99 F 01/25/18 10:57 102.0 F H 01/25/18 10:50 20 96 01/25/18 10:18 102.1 F H 62 25 H 153/72 H 93 L Temperature: Febrile Blood Pressure: Hypertensive Pulse: Tachycardic Respiratory Rate: Normal Appearance: Positive for: Well-Appearing, Non-Toxic, Comfortable Mental Status: Positive for: Alert and Oriented X 3 - Systems Exam Head: Present: Atraumatic, Normocephalic Pupils: Present: PERRL Extroacular Muscles: Present: EOMI Conjunctiva: Present: Normal Mouth: Present: Dry Neck: Present: Normal Range of Motion Respiratory/Chest: Present: Clear to Auscultation, Respiratory Distress (mild), Decreased Breath Sounds (bibasilar reduced breath sounds- slightly worse on right side), Other (left chest pacemaker palpable). No: Accessory Muscle Use Cardiovascular: Present: Regular Rate and Rhythm, Normal S1, S2. No: Murmurs, Rub, Gallop Abdomen: Present: Other (surgical scars). No: Tenderness, Distention, Peritoneal Signs Back: Present: Normal Inspection Upper Extremity: Present: Normal Inspection. No: Cyanosis, Edema Lower Extremity: Present: Normal Inspection. No: Edema Neurological: Present: GCS=15, CN II-XII Intact, Speech Normal Skin: Present: Warm, Dry, Normal Color. No: Rashes Psychiatric: Present: Alert, Oriented x 3, Normal Insight, Normal Concentration Medical Decision Making ED Course and Treatment: 01/25/18 11:16 Impression: A 67 year old male with shortness of breath. Differential Diagnosis included but are not limited to: Plan: -- VBG -- EKG -- Chest X-ray -- Tylenol, Vibramycin, Atrovent, Lactated ringer's, Rocephin, Vancomycin -- Labs -- Urinalysis -- Reassess and disposition Progress Notes: EKG: Ordered, reviewed, and independently interpreted the EKG. Rate : 61 BPM Rhythm : Pace EKG demand pacemaker Interpretation : No sgar-bossa changes sign for acute ischemia. Comparison : No previous EKG for comparison. 01/25/18 15:48 repeat ekg possibly w/ suspected lead reversal nsr @ 64 bpm rbbb, lafb, qtc: 522 mS, twi/st-t segment repolarization abnormlities II, III, Avf, V2-V6 - Lab Interpretations Lab Results: 01/25/18 10:40 01/25/18 11:19 Lab Results 01/25/18 11:40: Urine Color Yellow, Urine Appearance Clear, Urine pH 6.0, Ur Specific [place] >= 1.030, Urine Protein 100 H, Urine Glucose (UA) 100 H, Urine Ketones Negative, Urine Blood Negative, Urine Nitrate Negative, Urine Bilirubin Negative, Urine Urobilinogen 0.2, Ur Leukocyte Esterase Negative, Urine RBC 0 - 2, Urine WBC 0 - 2, Ur Epithelial Cells 0 - 2, Urine Bacteria Few 01/25/18 11:19: Sodium 143, Chloride 103, Potassium 4.5, Carbon Dioxide 27, Anion Gap 17, BUN 19, Creatinine 1.0, Est GFR ( Amer) > 60, Est GFR (Non- Af Amer) > 60, Random Glucose 208 H, Calcium 9.2, Magnesium 1.5 L, Total Bilirubin 0.7, AST 43, ALT 46, Alkaline Phosphatase 65, Troponin I < 0.01, NT- Pro-B Natriuret Pep 324, Total Protein 6.8, Albumin 3.9, Globulin 3.0, Albumin/ Globulin Ratio 1.3 01/25/18 10:40: pO2 76 H, VBG pH 7.43, VBG pCO2 39.0 L, VBG HCO3 25.9, VBG Total CO2 27.1, VBG O2 Sat (Calc) 97.3 H, VBG Base Excess 1.5, VBG Potassium 8.6 H*, Sodium 132.0, Chloride 102.0, Glucose 227 H, Lactate 2.6 H, FiO2 21.0, Venous Blood Potassium 8.6 H* 01/25/18 10:40: PT 12.0, INR 1.04, APTT 25.1 01/25/18 10:40: WBC 13.5 H D, RBC 4.80, Hgb 14.8, Hct 43.3, MCV 90.2, MCH 30.8, MCHC 34.2, RDW 14.8 H, Plt Count 141, MPV 9.5, Gran % 90.8 H, Lymph % (Auto) 4.2 L, Beadle % (Auto) 3.4, Eos % (Auto) 1.5, Baso % (Auto) 0.1, Gran # 12.27 H, Lymph # (Auto) 0.6 L, [place]le # (Auto) 0.5, Eos # (Auto) 0.2, Baso # (Auto) 0.01, Neutrophils % (Manual) 87 H, Band Neutrophils % 5 H, Lymphocytes % (Manual) 3 L , Monocytes % (Manual) 2, Eosinophils % (Manual) 2, Myelocytes % 1, Platelet Evaluation Normal - RAD Interpretation Radiology Orders: 01/25/18 10:19 CHEST PORTABLE [RAD] Stat - Medication Orders Current Medication Orders: Acetaminophen (Tylenol 325mg Tab) 650 mg PO Q6H PRN PRN Reason: Fever >100.4 F Albuterol/Ipratropium (Duoneb 3 Mg/0.5 Mg (3 Ml) Ud) 3 ml IH Q2H PRN PRN Reason: Shortness of Breath Albuterol/Ipratropium (Duoneb 3 Mg/0.5 Mg (3 Ml) Ud) 3 ml IH [id number] ORIANA Last Admin: 01/25/18 14:40 Dose: 3 ml Ceftriaxone Sodium (Rocephin 1 Gram Ivpb) 1 gm in 100 mls @ 100 mls/hr IVPB ONCE ONE PRN Reason: Protocol Stop: 01/26/18 11:46 Last Admin: 01/25/18 12:01 Dose: 100 mls/hr eMAR Start Stop Document 01/25/18 12:01 [email or web address] (Rec: 01/25/18 12:03 [email or web address] [id number]) Intravenous Solution Start Date 01/25/18 Start Time 12:03 End Date 01/25/18 Vancomycin HCl (Vancomycin 1gm) 1 gm in 250 mls @ 167 mls/hr IVPB Q12H ORIANA PRN Reason: Protocol Cefepime HCl (Maxipime 1gm) 1 gm in 100 mls @ 100 mls/hr IVPB Q12 ORIANA PRN Reason: Protocol Doxycycline Hyclate 100 mg/ (Sodium Chloride) 100 mls @ 100 mls/hr IVPB Q12 ORIANA PRN Reason: Protocol Insulin Human Regular (Humulin R Med) 0 units SC ACHS ORIANA PRN Reason: Protocol Ondansetron HCl (Zofran Inj) 4 mg IVP Q6H PRN PRN Reason: Nausea/Vomiting Pantoprazole Sodium (Protonix Ec Tab) 40 mg PO 0630 ORIANA Discontinued Medications Acetaminophen (Tylenol 325mg Tab) 975 mg PO STAT STA Stop: 01/25/18 10:25 Last Admin: 01/25/18 10:57 Dose: 975 mg MAR Pain/Vitals Document 01/25/18 10:57 [email or web address] (Rec: 01/25/18 10:57 [facility] [id number]) Vitals Temperature (97.6 F-99.6 F) 102.0 F Temperature Source Oral Acetaminophen (Tylenol 325mg Tab) 650 mg PO Q6H PRN PRN Reason: Fever >100.5 F Dicyclomine HCl (Bentyl) 20 mg PO ONCE ONE Stop: 01/25/18 15:19 Last Admin: 01/25/18 15:44 Dose: 20 mg Famotidine (Pepcid) 20 mg PO STAT STA Stop: 01/25/18 15:18 Last Admin: 01/25/18 15:45 Dose: 20 mg Lactated Ringer's 2,000 ml/ IV (SUPPLIES) 2,000 mls @ 0 mls/hr IV ONCE ONE PRN Reason: 60 ML/KG/HR Stop: 01/25/18 10:20 Last Admin: 01/25/18 11:01 Dose: 2,000 mls/hr eMAR Start Stop Document 01/25/18 11:01 [email or web address] (Rec: 01/25/18 11:02 CAST [id number]) Intravenous Solution Start Date 01/25/18 Start Time 11:02 End Date 01/25/18 Doxycycline Hyclate 100 mg/ (Sodium Chloride) 100 mls @ 100 mls/hr IVPB ONCE ONE PRN Reason: Protocol Stop: 01/25/18 11:44 Last Admin: 01/25/18 12:40 Dose: 100 mls/hr eMAR Start Stop Document 01/25/18 12:40 [email or web address] (Rec: 01/25/18 12:40 [email or web address] [id number]) Intravenous Solution Start Date 01/25/18 Start Time 12:40 End Date 01/25/18 Vancomycin HCl (Vancomycin 1gm) 1 gm in 250 mls @ 167 mls/hr IVPB STAT STA PRN Reason: Protocol Stop: 01/25/18 12:36 Last Admin: 01/25/18 15:44 Dose: 167 mls/hr eMAR Start Stop Document 01/25/18 15:44 [email or web address] (Rec: 01/25/18 15:44 [email or web address] [id number]) Intravenous Solution Start Date 01/25/18 Start Time 15:44 Magnesium Sulfate 2 gm/ Sodium (Chloride) 104 mls @ 102 mls/hr IVPB ONCE ONE Stop: 01/25/18 13:08 Last Admin: 01/25/18 14:39 Dose: 102 mls/hr eMAR Start Stop Document 01/25/18 14:39 [email or web address] (Rec: 01/25/18 14:39 [email or web address] [id number]) Intravenous Solution Start Date 01/25/18 Start Time 14:39 End Date 01/25/18 Ipratropium [place] (Atrovent) 0.5 mg IH STAT STA Stop: 01/25/18 10:22 Last Admin: 01/25/18 10:58 Dose: 0.5 mg - Scribe Statement The provider has reviewed the documentation as recorded by the Briseyda Singh Provider Scribe Attestation: All medical record entries made by the Scribe were at my direction and personally dictated by me. I have reviewed the chart and agree that the record accurately reflects my personal performance of the history, physical exam, medical decision making, and the department course for this patient. I have also personally directed, reviewed, and agree with the discharge instructions and disposition. Disposition/Present on Arrival - Present on Arrival Any Indicators Present on Arrival: No History of DVT/PE: No History of Uncontrolled Diabetes: No Urinary Catheter: No History of Decub. Ulcer: No History Surgical Site Infection Following: None - Disposition Have Diagnosis and Disposition been Completed?: Yes Diagnosis: Upper respiratory infection, Sepsis Disposition: HOSPITALIZED Disposition Time: 12:05 Patient Plan: Admission Condition: FAIR
[2018-01-25] MEDS ORDERED: Vancomycin 1gm in NS 250ml 1 GM/250 ML BAG IVPB STA (11:07)
[2018-01-25 11:08] LABS: VENOUS BLOOD GAS BASE EXCESS 1.5 mmol/L (0.0-2.0); VENOUS BLOOD GAS PO2 76 mm/Hg (30-55); VENOUS BLOOD PH 7.43 (7.32-7.43)
[2018-01-25 11:11] LABS: BASO # 0.01 K/mm3 (0.0-2.0); BASO % 0.1 % (0.0-3.0); EOS # 0.2 (0.0-0.7); EOS % 1.5 % (1.5-5.0); GRAN # 12.27 (1.4-6.5); GRAN % 90.8 % (50.0-68.0); HEMOGLOBIN 14.8 g/dL (14.0-18.0); LYMPH # 0.6 (1.2-3.4); LYMPH % 4.2 % (22.0-35.0); MEAN CELL VOLUME 90.2 fl (80.0-105.0); MEAN CORPUSCULAR HEMOGLOBIN 30.8 pg (25.0-35.0); MEAN CORPUSCULAR HGB CONC 34.2 g/dl (31.0-37.0); MEAN PLATELET VOLUME 9.5 fl (7.0-11.0); MONO # 0.5 (0.1-0.6); MONO % 3.4 % (1.0-6.0); PLATELET COUNT 141 10^3/uL (120.0-450.0); RED CELL DISTRIBUTION WIDTH 14.8 % (11.5-14.5); WHITE BLOOD COUNT 13.5 10^3/ul (4.5-11.0)
[2018-01-25 11:21] LABS: INR 1.04 (0.93-1.08); PARTIAL THROMBOPLASTIN TIME 25.1 Seconds (25.1-36.5)
[2018-01-25 11:28] LABS: BAND 5 % (0-2); EOSINOPHIL 2 % (0.0-3.0); LYMPHOCYTE 3 % (22.0-35.0); MONOCYTE 2 % (1.0-6.0); MYELOCYTE 1 %; NEUTROPHIL 87 % (50.0-70.0); PLATELET ESTIMATE NORMAL (NORMAL)
[2018-01-25 11:34] LABS: ALB/GLOB RATIO 1.3 (1.1-1.8); ALBUMIN 3.9 g/dL (3.0-4.8); ALT/SGPT 46 U/L (7-56); AST/SGOT 43 U/L (17-59); BLOOD UREA NITROGEN 19 mg/dL (7-21); CALCIUM 9.2 mg/dL (8.4-10.5); GFR AFRICAN-AMERICAN > 60; GFR NON-AFRICAN AMERICAN > 60
[2018-01-25 11:46] LABS: B-TYPE NATRIURETIC PEPTIDE 324 pg/mL (0-450); TROPONIN I < 0.01 ng/mL
[2018-01-25 12:07] LABS: URINE BILIRUBIN NEGATIVE (NEGATIVE); URINE BLOOD NEGATIVE (NEGATIVE); URINE GLUCOSE (UA) 100 mg/dL (NEGATIVE); URINE LEUKOCYTE ESTERASE NEGATIVE Leu/uL (NEGATIVE); URINE PROTEIN 100 mg/dL (<30 mg/dL); URINE UROBILINOGEN 0.2 E.U./dL (<1 E.U./dL)
[2018-01-25] MEDS ORDERED: Magnesium Sulfate 2 GM in Sodium Chloride 0.9% 100 ML IVPB ONE (12:07)
[2018-01-25 12:08] LABS: URINE APPEARANCE CLEAR (CLEAR); URINE COLOR YELLOW (YELLOW)
[2018-01-25 12:19] LABS: URINE BACTERIA FEW (NEG); URINE EPITHELIAL CELLS 0 - 2 /hpf (0-5); URINE RBC 0 - 2 /hpf (0-2); URINE WBC 0 - 2 /hpf (0-6)
[2018-01-25 14:24] LABS: VENOUS BLOOD GAS BASE EXCESS 1.9 mmol/L (0.0-2.0); VENOUS BLOOD GAS PO2 48 mm/Hg (30-55); VENOUS BLOOD PH 7.33 (7.32-7.43)
[2018-01-25] MEDS: Albuterol-Ipratrop 3 mg / 0.5 (3 ml) UD IH SCH ×2 (14:40→19:39)
[2018-01-25] MEDS: Vancomycin 1gm in NS 250ml 1 GM/250 ML BAG IVPB SCH (16:44)
[2018-01-25 17:13] VITALS: BMI 36.6
[2018-01-25] MEDS ORDERED: Pneumococcal 23-Valent Vaccine IM ONE (17:14)
--- NOTE | 2018-01-25 17:47 | CARD ---
APPROVED REPORT EKG Measurement Heart [id number] <Conclusion> Demand ventricular pacemaker rhythm Abnormal ECG
[2018-01-25] MEDS: Insulin Reg-MEDIUM-Coverage SC SCH ×2 (18:00→21:48)
--- NOTE | 2018-01-25 18:41 | PCM.SEPTIC ---
Sepsis Progress Note - Reassessment Type Date of Evaluation: 01/25/18 Time of Evaluation: 18:40 Reassessment Type: Non-invasive reassessment - Non Invasive Reassessment Were the most recent vital sign reviewed: Yes Vital Sign (Latest): Temp Pulse Resp BP Pulse Ox 98.3 F 66 20 116/62 99 01/25/18 16:53 01/25/18 16:53 01/25/18 16:53 01/25/18 16:53 01/25/18 15:46 Cardiovascular: Yes: Regular Rate, Rhythm Respiratory: Yes: Normal Breath Sounds. No: Decreased Breath Sounds, Accessory Muscle Use, Crackles, Rales, Rhonchi, Wheezing Capillary Refill: Normal (Less than 2 sec) Pulses: Normal Radial, Normal Dorsalis Pedis, Normal Posterior Tibialis Skin: Normal Color, Warm, Dry - Invasive Reassessment (complete 2 of 4) Was a Central Venous Pressure Measurement obtained within 6 Hours after the presentation of septic shock: No Was a central venous oxygen measurement obtained within 6 hours after the presentation of septic shock: No Was a bedside cardiovascular ultrasound performed within 6 hours after the presentation of septic shock: No Was a passive leg raise performed or was a fluid challenge performed within 6 hrs of the initial fluid bolus: No Fluid Challenge performed: No
[2018-01-25] MEDS: Albuterol-Ipratrop 3 mg / 0.5 (3 ml) UD IH PRN ×2 (19:52→23:39)
--- NOTE | 2018-01-25 21:11 | CT ---
EXAM: CT Chest Without Intravenous Contrast CLINICAL HISTORY: 67 years old, male; Signs and symptoms; Shortness of breath; Additional info: SOB TECHNIQUE: Axial computed tomography images of the chest without intravenous contrast. All CT scans at this facility use one or more dose reduction techniques, viz.: automated exposure control; ma/kV adjustment per patient size (including targeted exams where dose is matched to indication; i.e. head); or iterative reconstruction technique. Coronal and sagittal reformatted images were created and reviewed. COMPARISON: CT - CHEST W/O CONTRAST 2017-09-21 16:48 FINDINGS: Limitations: Lack of intravenous contrast. Streak artifact - mild. Lungs: Moderate patchy groundglass/nodular airspace disease within left upper, left lower, right middle, right lower lobes. Minimal involvement of right upper lobe. Pleural space: No pneumothorax. No significant effusion. Heart: No cardiomegaly. No significant pericardial effusion. Minimal coronary artery calcifications. Bones/joints: Calcification along right shoulder. Degenerative changes of spine. No acute fracture. Soft tissues: Unremarkable. Vasculature: Enlargement of pulmonary trunk, 3.6 cm. Minimal atherosclerotic disease. Lymph nodes: Several subcentimeter short axis mediastinal lymph nodes. Borderline enlarged short axis mediastinal lymph node. Liver: Fatty infiltration. Kidneys and ureters: Mild stranding about kidneys, nonspecific. Tubes, lines and devices: LEFT pacemaker. IMPRESSION: 1. Probable multifocal pneumonia. Followup to resolution to exclude underlying pathology. 2. Incidental/non-acute findings are described above.
[2018-01-25] MEDS: Cefepime 1gm in NS 100ml 1 GM/100 ML BAG IVPB SCH (22:05)
[2018-01-25] MEDS ORDERED: guaiFENesin 200 mg/10 ml Syrup UD PO PRN (23:33)
--- NOTE | 2018-01-26 00:55 | HP ---
HISTORY OF PRESENT ILLNESS: The patient is 67-year-old, came to emergency room because of increasing shortness of breath. Patient states he has not been feeling well since his , he has been lately very depressed. He started with slight cough and congestion a few days ago, but got worse for the last 2 days and today, he was unable to catch his breath. He was also having dry cough. He had fever and he has generalized weakness. Patient was admitted in September with bilateral pneumonia. Patient denies any hemoptysis. No hematemesis. Does complain of body aches and pain and dry cough. PAST MEDICAL HISTORY: Significant for: 1. CA colon. He has partial colectomy followed by radiation. Since then, he has intermittent diarrhea. 2. Hypertension. 3. Coronary artery disease. 4. History of colostomy followed by reversal. 5. Status post pacemaker placement secondary to bradycardia. ALLERGIES: HE IS NOT ALLERGIC TO ANY MEDICATION. MEDICATIONS AT HOME: He is on Janumet. He takes oxycodone and gabapentin because of his chronic degenerative disk disease. PAST SURGICAL HISTORY: Significant for inguinal hernia repair and colostomy reversal. REVIEW OF SYSTEMS: Significant for cough, generalized weakness, body aches and pain. PHYSICAL EXAMINATION: GENERAL: He is awake, alert, oriented, able to communicate. VITAL SIGNS: He has temperature of 102.1, pulse 100, respirations 20, blood pressure 153/72. LUNGS: Bilateral soft crackles at lower lung region. HEART: S1, S2 audible. ABDOMEN: Soft, obese, nontender. No rebound. No guarding. NEUROLOGIC: Patient is awake, alert, oriented, communicative. LABORATORY DATA: WBC 13.5, hemoglobin 14, hematocrit 43, platelet 141. PT 12, INR 1.04. ABG, his pH is 7.43, pO2 of 76, pulse ox is 97%. Chemistry, sodium 143, potassium 4.5, chloride 103, CO2 of 27, BUN 19, creatinine 1, blood sugar 208, magnesium 1.5. LFTs are within normal limit. Urinalysis shows glucose and protein. He had x-ray chest done that shows increased perihilar infiltrate and vascular congestion. ASSESSMENT: 1. Fever, leukocytosis with perihilar infiltrates. 2. Questionable congestive heart failure. 3. Chronic obstructive pulmonary disease. 4. Non-insulin dependant diabetes. 5. Hypertension. 6. Hyperlipidemia. 7. Status post pacemaker placement. PLAN: So plan is, patient will be admitted on telemetry. We will start him on IV antibiotics, nebulizer treatment. Pulmonary consult, Dr. Rome and ID consult by Dr. Russell has been requested. Blood culture, urine culture will be followed. We will monitor his blood sugar and for now, I gave him insulin coverage. Magnesium has been supplemented. Patient will be placed on vancomycin, doxycycline, and Maxipime and we will follow up the patient. Sundar Hartman MD
[2018-01-26] MEDS: Albuterol-Ipratrop 3 mg / 0.5 (3 ml) UD IH SCH ×4 (01:08→19:31)
[2018-01-26] MEDS: Vancomycin 1gm in NS 250ml 1 GM/250 ML BAG IVPB SCH ×2 (01:38→14:04)
[2018-01-26] MEDS: Albuterol-Ipratrop 3 mg / 0.5 (3 ml) UD IH PRN ×3 (02:56→22:00)
[2018-01-26] MEDS: Pantoprazole 40 mg EC Tab PO SCH (06:10)
[2018-01-26] MEDS: Insulin Reg-MEDIUM-Coverage SC SCH ×4 (08:35→22:22)
[2018-01-26] MEDS: Cefepime 1gm in NS 100ml 1 GM/100 ML BAG IVPB SCH ×2 (09:37→22:22)
[2018-01-26] MEDS ORDERED: cefTRIAXone 1 gm 1 GM/100 ML BAG IVPB ONE (10:47)
--- NOTE | 2018-01-26 12:26 | CON ---
DATE: 01/26/2018 LOCATION: The patient is seen earlier this morning in room 269, bed 2. CHIEF COMPLAINT: Fever times several days. HISTORY OF PRESENT ILLNESS: This is a 67-year-old male with past medical history of rectal cancer, history of colon resection and colostomy and reversal of colostomy years ago, also with diabetes mellitus, hypertension, chronic back pain, neuropathy, degenerative joint disease, spinal stenosis, obesity, who was admitted with fever x2 days duration. He has been having cough and shortness of breath. The cough is dry cough. There is fever of up to 102. REVIEW OF SYSTEMS: Twelve-point review of systems is performed. There has been no abdominal pain, diarrhea or constipation. No dysuria or frequency. No bright red blood per rectum. No melena. No rash. No new joint pain. No headaches. No new back pain. PAST MEDICAL HISTORY: Significant for coronary artery disease, hypertension, diabetes, neuropathy, degenerative joint disease, spinal stenosis, obesity with a BMI of 34, chronic back pain. Past medical history also significant for rectal cancer. Past medical history significant for pacemaker placement and colon resection with a colostomy and reversal of the colostomy. ALLERGIES: THE PATIENT HAS NO KNOWN ALLERGIES TO ANY ANTIBIOTICS. MEDICATIONS: Include Amaryl, Xanax, Zoloft, gabapentin, metformin. PHYSICAL EXAMINATION: GENERAL: He is in bed with significant shortness of breath with a temperature of 99; T-max is 102.1; respiratory rate of 18, it was up to 25 on admission yesterday; heart rate is 68. He does have a pacemaker. Blood pressure is 117/45 and his oxygenation saturation was now 93% O2 saturation. HEENT: Examination of HEENT is unremarkable. NECK: Supple. LUNGS: Have decreased breath sounds. HEART: Normal S1, S2. ABDOMEN: Soft, nontender. LABORATORY DATA: Laboratory examination reveals a white count of 13,500, hemoglobin of 14, platelets of 141, 90% granulocytosis. Coagulation is noted. BUN of 19, creatinine of 1, procalcitonin 0.12. Urinalysis is noted. Microbiology is pending. The patient had a chest x-ray, which revealed increased vascular congestion and increased peripheral infiltrates. The patient had a CAT scan of the chest, which showed bilateral multifocal pneumonia. The patient had a negative influenza, has proteinuria. ASSESSMENT AND PLAN: A 67-year-old male with rectal cancer, diabetes mellitus, coronary artery disease, hypertension, chronic back pain, neuropathy, degenerative joint disease, spinal stenosis, obesity, body mass index of 34, pacemaker. #1 is severe sepsis with bilateral multifocal community-acquired pneumonia, must rule out bacteremia from the pacemaker. We will repeat a procalcitonin. Check on the blood cultures, urine cultures, sputum cultures. We will also order a urine for Legionella antigen. The patient is currently on vancomycin, doxycycline and cefepime pending initial culture results and repeat procalcitonin and initial response. We will follow with you. Because of the history of rectal cancer, we will also order an human immunodeficiency virus test. Nba Russell MD
--- NOTE | 2018-01-26 13:56 | CP.PCM.CON ---
History of Present Illness - History of Present Illness History of Present Illness: Lying in bed, awake,denies chest pain, feels weak Reason for consultation: Cardiac evaluation, shortness of breath, hypertension, PPM, diabetes Brief history of present illness: A 67 year old male,obese who came in to the ER due to shortness of breath,dry cough with fever that started 1 day prior to admission. He has history of status post pacemaker placement due to sick sinus syndrome, hypertension, CAD, inguinal hernia repair, colorectal cancer with colostomy and chemotherapy, colostomy reversal 04/26/16, former smoker, and recent admission on 10/15/17 for bilateral pneumonia. Seen and examined by me and Dr. Brown Review of Systems - Review of Systems Review of Systems: Cooperative - Constitutional Constitutional: As Per HPI Additional comments: obese - Cardiovascular Additional comments: denies chest pain, PPM due to slow heart rate - Respiratory Additional comments: history of pneumonia, came in for shortness of breath - Gastrointestinal Additional comments: inguinal repair, colorectal cancer with colostomy colostomy reversal 05/08 - Genitourinary Additional comments: denies any problems - Musculoskeletal Additional comments: tibia tendonitis - Neurological Additional comments: denies any problems - Endocrine Additional Comments: diabetes Past Patient History - Infectious Disease Hx of Infectious Diseases: None - Past Social History Smoking Status: Former Smoker - CARDIAC Hx Cardiac Disorders: Yes (cad) Hx Hypertension: Yes Hx Pacemaker: Yes (04/26/[address] jain) - PULMONARY Hx Respiratory Disorders: Yes Hx Asthma: Yes Hx Pneumonia: Yes (10/15/17 b/l) - NEUROLOGICAL Hx Dizziness: Yes - HEENT Hx HEENT Problems: Yes Hx Cataracts: Yes (b/l sx) - RENAL Hx Chronic Kidney Disease: Yes - ENDOCRINE/METABOLIC Hx Endocrine Disorders: Yes Hx Diabetes Mellitus Type 2: Yes - HEMATOLOGICAL/ONCOLOGICAL Hx Cancer: Yes (colon ca dx 02/2014) Hx Chemotherapy: Yes (and radiation) Other/Comment: dx with colon ca in 02/2014 had chemo and radiation then colostomy , colostomy reversal 2015, had inguinal hernia repair in 2015 at [facility] caused by colostomy reversal sx - INTEGUMENTARY Other/Comment: callus to left ft bunyon 0.5cm round c/o pain radiates to left great toe, dry skin both feet, face flushed, healed abd surgical scars, scratch holloway to right upper abd and left lower leg - MUSCULOSKELETAL/RHEUMATOLOGICAL Hx Falls: No - GASTROINTESTINAL Hx Gastrointestinal Disorders: Yes (obese) Hx Colostomy: Yes (and reversal due to colon ca) Other/Comment: frequent formed bm's 10-12 a day ever since colostomy reversal, colonoscopy 08/29/16 dx status post rectal resection and hemorrhoids - GENITOURINARY/GYNECOLOGICAL Hx Genitourinary Disorders: No - PSYCHIATRIC Hx Substance Use: No - SURGICAL HISTORY Other/Comment: INGUINAL HERNIA REPAIR 2015,COLOSTOMY REVERSED 2015,PACEMAKER 04/26, allograft r foot sx - ANESTHESIA Hx Anesthesia Reactions: No Hx Malignant Hyperthermia: No Meds Allergies/Adverse Reactions: Allergies Allergy/AdvReac Type Severity Reaction Status Date / Time No Known Allergies Allergy Verified 01/25/18 10:18 - Medications Medications: Current Medications Acetaminophen (Tylenol 325mg Tab) 650 mg PO Q6H PRN PRN Reason: Fever >100.4 F Albuterol/Ipratropium (Duoneb 3 Mg/0.5 Mg (3 Ml) Ud) 3 ml IH Q2H PRN PRN Reason: Shortness of Breath Last Admin: 01/26/18 09:40 Dose: 3 ml Albuterol/Ipratropium (Duoneb 3 Mg/0.5 Mg (3 Ml) Ud) 3 ml IH [id number] ORIANA Last Admin: 01/26/18 13:29 Dose: 3 ml Guaifenesin (Robitussin) 200 mg PO Q4H PRN PRN Reason: Cough and congestion Last Admin: 01/26/18 02:38 Dose: 200 mg Vancomycin HCl (Vancomycin 1gm) 1 gm in 250 mls @ 167 mls/hr IVPB Q12H ORIANA PRN Reason: Protocol Last Admin: 01/26/18 01:38 Dose: 167 mls/hr Cefepime HCl (Maxipime 1gm) 1 gm in 100 mls @ 100 mls/hr IVPB Q12 ORIANA PRN Reason: Protocol Last Admin: 01/26/18 09:37 Dose: 100 mls/hr Doxycycline Hyclate 100 mg/ (Sodium Chloride) 100 mls @ 100 mls/hr IVPB Q12 ORIANA PRN Reason: Protocol Last Admin: 01/26/18 11:05 Dose: 100 mls/hr Insulin Human Regular (Humulin R Med) 0 units SC ACHS ORIANA PRN Reason: Protocol Last Admin: 01/26/18 12:22 Dose: 1 units Ondansetron HCl (Zofran Inj) 4 mg IVP Q6H PRN PRN Reason: Nausea/Vomiting Pantoprazole Sodium (Protonix Ec Tab) 40 mg PO 0630 [facility] Last Admin: 01/26/18 06:10 Dose: 40 mg Physical Exam - Constitutional Appears: No Acute Distress - Eye Exam Eye Exam: Normal appearance - ENT Exam ENT Exam: Mucous Membranes Moist - Respiratory Exam Respiratory Exam: Decreased Breath Sounds, Rales, NORMAL BREATHING PATTERN - Cardiovascular Exam Cardiovascular Exam: REGULAR RHYTHM, +S1, +S2 Additional comments: telemetry NSR 60's PPM - GI/Abdominal Exam GI & Abdominal Exam: Normal Bowel Sounds, Soft - Exam Additional comments: continent/urinal - Extremities Exam Extremities exam: Positive for: normal capillary refill - Neurological Exam Neurological exam: Alert, Oriented x3 - Psychiatric Exam Psychiatric exam: Normal Affect, Normal Mood - Skin Skin Exam: Intact, Normal Color, Warm Results - Vital Signs Recent Vital Signs: Last Vital Signs Temp 98.7 F 01/26/18 12:00 Pulse 62 01/26/18 12:00 Resp 19 01/26/18 12:00 BP 127/40 L 01/26/18 12:00 Pulse Ox 95 01/26/18 06:00 - Labs Result Diagrams: 01/25/18 10:40 01/25/18 11:19 Labs: Laboratory Results - last 24 hr 01/25/18 01/25/18 01/25/18 13:20 14:17 15:06 pO2 48 VBG pH 7.33 VBG pCO2 55.0 VBG HCO3 29.0 H VBG Total CO2 30.7 H VBG O2 Sat (Calc) 84.7 H VBG Base Excess 1.9 VBG Potassium 4.4 Sodium 135.0 Chloride 102.0 Glucose 208 H Lactate 2.6 H FiO2 21.0 POC Glucose (mg/dL) 175 H Venous Blood Potassium 4.4 Influenza Typ A,B (EIA) Negative for flu a/b 01/25/18 01/25/18 01/26/18 17:01 21:32 07:44 pO2 VBG pH VBG pCO2 VBG HCO3 VBG Total CO2 VBG O2 Sat (Calc) VBG Base Excess VBG Potassium Sodium Chloride Glucose Lactate FiO2 POC Glucose (mg/dL) 142 H 142 H 166 H Venous Blood Potassium Influenza Typ A,B (EIA) 01/26/18 11:55 pO2 VBG pH VBG pCO2 VBG HCO3 VBG Total CO2 VBG O2 Sat (Calc) VBG Base Excess VBG Potassium Sodium Chloride Glucose Lactate FiO2 POC Glucose (mg/dL) 192 H Venous Blood Potassium Influenza Typ A,B (EIA) Assessment & Plan - Assessment and Plan (Free Text) Assessment: A 67 year old male,obese who came in to the ER due to shortness of breath,dry cough with fever that started 1 day prior to admission. He has history of status post pacemaker placement due to sick sinus syndrome, hypertension, CAD, inguinal hernia repair, colorectal cancer with colostomy and chemotherapy, colostomy reversal 04/26/16, former smoker, and recent admission on 10/15/17 for bilateral pneumonia. Review of cardiac work up: 01/03/17- Stress test was done, abnormal myocardial perfusion scan 04/26/16- single chamber PPM medtronic inserted due to Sick Sinus Syndrome Plan: Patient known to service. Dr. Jain inserted PPM last 04/26/16 due to sick sinus syndrome Will order ECHO to evaluate LV function CT of chest suggest pneumonia ID and pulmonary on consult Controlled hypertension, will order medications as needed Continue current medications Continue current treatment Will order TSH level, lipid profile Will follow up Plan and treatment discussed with Dr. Brown Thank you Dr. Hartman for giving us the opportunity to care of Mr. Bryan Mei - Date & Time Date: 01/26/18 Time: 11:30
--- NOTE | 2018-01-26 15:22 | CARD ---
APPROVED REPORT EKG Measurement Heart [id number] <Conclusion> Normal sinus rhythm Biatrial enlargement Right bundle branch block Left anterior fascicular block Bifascicular block Marked T wave abnormality, consider inferolateral ischemia Abnormal ECG
--- NOTE | 2018-01-26 15:23 | CARD ---
APPROVED REPORT EKG Measurement Heart [id number] <Conclusion> Electronic ventricular pacemaker
--- NOTE | 2018-01-26 17:37 | CON ---
DATE: 01/26/2018 PULMONARY CONSULTATION We were asked to evaluate and treat this 67-year-old man who was admitted to [facility] with chief complaints of cough, shortness of breath, fever and was diagnosed with pneumonia. His private physician is Dr. Hartman. The patient was started on doxycycline and cefepime. He also was given a dose of vancomycin after a consultation with Dr. Russell from Infectious Disease. He was also started on nebulizer treatments with DuoNeb. I reviewed his home medications for MAR. HISTORY OF PRESENT ILLNESS: The patient was complaining of cold symptoms and started coughing and cough was accompanied by shortness of breath. The patient had one admission for pneumonia this year in September. He was in with bilateral pneumonia. He denied abdominal pain, nausea, diarrhea or other accompanying symptoms. His cough was mostly dry. His first spike of fever was last night and he came to emergency room. PAST MEDICAL HISTORY: Positive for pacemaker placement; hypertension; coronary artery disease; colorectal cancer; colostomy, which was reversed. He had no history of recent travel. He was remarkable saying about his history that his from severe pneumonia in [facility] this year. He may have had a flu this year as well too. REVIEW OF SYSTEMS: Was conducted. Pulmonary: See history of present illness, former smoker and COPD. Cardiovascular: See history of present illness. Endocrine: Positive for diabetes mellitus. Oncologic history of GI: Colostomy reversal, status post chemotherapy and radiation therapy. All other systems negative FAMILY HISTORY: Negative for inherited diseases. SOCIAL HISTORY: Former smoker. No alcohol. No illicit drugs. ALLERGIES: NO KNOWN ALLERGIES. PHYSICAL EXAMINATION: VITAL SIGNS: Temperature 98 currently, but was 102 in the emergency room. HEENT: Examination of head, ear, nose and throat normocephalic and atraumatic. NECK: Supple with no jugular vein distentions. RESPIRATORY: Coarse rhonchi, right more than left and few crackles at both bases. CARDIOVASCULAR: S1, S2. No S3. Regular. GI: A surgical scar is present, nontender. EXTREMITIES: No edema. NEUROLOGIC: No focal deficits. SKIN: Warm, dry. No skin rash. EKG, normal sinus rhythm at 64. LABORATORY DATA: WBC 13.5, hemoglobin 14.8. Chemistries are within normal limit except for sugar of 208. Venous blood gas shows pH of 7.43, pCO2 of 39 and pO2 of 76. These are normal values. On the differential, he had 90% granulocytes. I personally reviewed his chest x-ray as well as CT scan of chest. The chest x-ray shows diffuse patchy infiltrates in both lungs consistent with pneumonia. ASSESSMENT: 1. Severe pneumonia. 2. Rule out sepsis. 3. Rule out viral etiology for pneumonia. 4. Extensive cardiac history with pacemaker placement. Former smoker. Chronic obstructive pulmonary disease is likely present. No CO2 retention on blood gas and no signs of respiratory failure at this point; however, if pneumonia will progress that may become an issue. The patient will have to be very closely monitored. If any sign of deterioration with this bilateral pneumonia, the patient should be transferred to Intensive Care Unit. I agree with antibiotic choice at this point. We will discuss further with Dr. Russell, Infectious Disease. Paolo Castro MD LORRAINE
--- NOTE | 2018-01-26 23:30 | PN ---
DATE: 01/26/2018 HISTORY OF PRESENT ILLNESS: Mr. Mei is a 67-year-old male admitted to the hospital with bilateral multifocal pneumonia. He was admitted with similar complaints in September. He has a history of colon cancer, colorectal cancer treated with chemotherapy and radiation and surgery at [facility]. He also has a pacemaker. He had a colostomy which was reversed. Blood culture and urine culture negative. PAST MEDICAL HISTORY: 1. Colon cancer, colorectal cancer, treated with radiation and chemotherapy. 2. Hypertension. 3. Coronary artery disease. 4. History of colostomy reversal. 5. Status post pacemaker placement secondary to bradycardia. ALLERGIES: NO KNOWN DRUG ALLERGIES. HOME MEDICATIONS: Janumet, oxycodone, gabapentin for chronic degenerative disk disease. PAST SURGICAL HISTORY: Inguinal hernia repair, colostomy, colostomy reversal. REVIEW OF SYSTEMS: As per HPI, 12-point of systems reviewed and negative. PHYSICAL EXAMINATION: GENERAL: Awake, alert, oriented. VITAL SIGNS: Temperature , afebrile, heart rate is 80 per minute, respiratory rate 20 per minute, blood pressure 150/70. HEENT: Pallor positive. NECK: No lymphadenopathy. CHEST: Air entry present and equal bilaterally. No added sounds. HEART: S1 and S2 normal. No murmur. No gallop. ABDOMEN: Soft, nontender. No hepatosplenomegaly. NEUROLOGICAL: Awake, alert, oriented. Communicative. EXTREMITIES: Leg, bilateral 1+ edema.. LABORATORY DATA: White count 13.5, hemoglobin 4.8, hematocrit 14.8, hematocrit 43.3, platelet 141. Sodium 143, potassium 4.5, creatinine 1, calcium 9.2, magnesium 1.5. ASSESSMENT AND PLAN: 1. Bilateral pneumonia, community-acquired pneumonia. 2. History of colon cancer, in remission. 3. Leukocytosis. 4. Pacemaker placed because of bradycardia. 5. Congestive heart failure. PLAN: He is currently on IV antibiotics as per ID, Dr. Russell notes reviewed. Currently on cefepime and doxycycline. There is concern about infection from the pacemaker. He is also on vancomycin. Cardiology consultation by Dr. Brown requested. There is also concern for lymphangitic spread of colon cancer, although this pattern of spread is rare for colon, but recurrence of malignancy cannot be ruled out. I discussed with the patient and his daughter at bedside that after completion of course of antibiotics, he should get a CT PET scan to rule out recurrence of colon cancer. He was treated at [facility]. He said he will talk to his doctors at [facility] and if they recommend, he will consider PET scan. Continue DuoNeb, insulin sliding scale, Zofrchris p.r.n., Protonix 40 mg daily. Ivette Coto MD
--- NOTE | 2018-01-27 01:18 | CP.PCM.PN ---
Subjective - Date & Time of Evaluation Date of Evaluation: 01/27/18 Time of Evaluation: 01:18 - Subjective Subjective: S:Patient was seen at bedside. He requested something for sleep. States that he has not been able to sleep since he lost his about 4 weeks ago. Has no other complaints. Denies chest pain, sob. Medical record was reviewed. O: Last Vital Signs 3 Temp 99 F 01/26/18 18:00 Pulse 61 01/26/18 18:00 Resp 19 01/26/18 18:00 BP 141/65 01/26/18 18:00 Pulse Ox 95 01/26/18 06:00 Awake, alert, not in distress.Obese. LUNGS: Normal breathing pattern. NEURO:Speech normal. A:Adjustment insomnia. Anxiety. P:Xanax 0.25 mg PO x 1. Objective - Vital Signs/Intake and Output Vital Signs (last 24 hours): Temp Pulse Resp BP Pulse Ox 99 F 61 19 141/65 95 01/26/18 18:00 01/26/18 18:00 01/26/18 18:00 01/26/18 18:00 01/26/18 06:00 - Medications Medications: Current Medications Acetaminophen (Tylenol 325mg Tab) 650 mg PO Q6H PRN PRN Reason: Fever >100.4 F Albuterol/Ipratropium (Duoneb 3 Mg/0.5 Mg (3 Ml) Ud) 3 ml IH Q2H PRN PRN Reason: Shortness of Breath Last Admin: 01/26/18 09:40 Dose: 3 ml Albuterol/Ipratropium (Duoneb 3 Mg/0.5 Mg (3 Ml) Ud) 3 ml IH [id number] ORIANA Last Admin: 01/26/18 19:31 Dose: 3 ml Guaifenesin (Robitussin) 200 mg PO Q4H PRN PRN Reason: Cough and congestion Last Admin: 01/26/18 02:38 Dose: 200 mg Vancomycin HCl (Vancomycin 1gm) 1 gm in 250 mls @ 167 mls/hr IVPB Q12H ORIANA PRN Reason: Protocol Last Admin: 01/26/18 14:04 Dose: 167 mls/hr Cefepime HCl (Maxipime 1gm) 1 gm in 100 mls @ 100 mls/hr IVPB Q12 ORIANA PRN Reason: Protocol Last Admin: 01/26/18 22:22 Dose: 100 mls/hr Doxycycline Hyclate 100 mg/ (Sodium Chloride) 100 mls @ 100 mls/hr IVPB Q12 ORIANA PRN Reason: Protocol Last Admin: 01/26/18 22:23 Dose: 100 mls/hr Insulin Human Regular (Humulin R Med) 0 units SC ACHS ORIANA PRN Reason: Protocol Last Admin: 01/26/18 22:22 Dose: Not Given Ondansetron HCl (Zofran Inj) 4 mg IVP Q6H PRN PRN Reason: Nausea/Vomiting Pantoprazole Sodium (Protonix Ec Tab) 40 mg PO 0630 [facility] Last Admin: 01/26/18 06:10 Dose: 40 mg - Labs Labs: PT 12.0 SECONDS (9.4-12.5) 01/25/18 10:40 INR 1.04 (0.93-1.08) 01/25/18 10:40 APTT 25.1 Seconds (25.1-36.5) 01/25/18 10:40
[2018-01-27] MEDS: Albuterol-Ipratrop 3 mg / 0.5 (3 ml) UD IH SCH ×4 (02:08→19:42)
[2018-01-27] MEDS: Vancomycin 1gm in NS 250ml 1 GM/250 ML BAG IVPB SCH ×2 (03:00→14:11)
[2018-01-27] MEDS: Pantoprazole 40 mg EC Tab PO SCH (05:47)
[2018-01-27] MEDS: Albuterol-Ipratrop 3 mg / 0.5 (3 ml) UD IH PRN ×2 (06:04→17:58)
[2018-01-27] MEDS: Insulin Reg-MEDIUM-Coverage SC SCH ×2 (08:06→14:12)
--- NOTE | 2018-01-27 10:26 | RAD ---
HISTORY: Compare to see improvement. COMPARISON: 01/25/2018 TECHNIQUE: Chest PA and lateral FINDINGS: LUNGS: There is significant improvement in the pattern of CHF. There is minimal residual vascular and interstitial congestion PLEURA: No significant pleural effusion identified. No pneumothorax apparent. CARDIOVASCULAR: Mild cardiomegaly. Single lead pacemaker OSSEOUS STRUCTURES: No significant abnormalities. VISUALIZED UPPER ABDOMEN: Normal. OTHER FINDINGS: None. IMPRESSION: There is significant improvement in the pattern of CHF. There is minimal residual vascular and interstitial congestion
--- NOTE | 2018-01-27 11:14 | PN ---
DATE: 01/27/2018 SUBJECTIVE: This morning, when I arrived on the telemetry unit, I was approached by the nurse taking care of Mr. Mei. The nurse informed me that Mr. Mei had requested another simplex printer installer to take care of him. I then asked why. Apparently,the patient explained to the nurse that it was very painful for him to see me, as I reminded him of his "recently ". I did take care of his , and was very fond of her, for many many years. I then spoke with Mr. Mei directly. He stated "please doctor, don't have any hard feelings. I do appreciate everything you have done for my family over the years. But when I see you, I think of Becka." I told him that I completely understood the situation. I also wished him good luck during this hospital stay, and in the future. I then relayed the contents of my conversation with the patient to the nurse. Dr. Stahl will be called in to continue the pulmonary care. I will also touch base with Dr. Stahl this morning, for continuity of care. Dmitry Rome MD LORRAINE
[2018-01-27] MEDS: Cefepime 1gm in NS 100ml 1 GM/100 ML BAG IVPB SCH ×2 (12:28→21:46)
--- NOTE | 2018-01-27 13:44 | PN ---
DATE: 01/27/2018 SUBJECTIVE: The patient is 67 years old, seen and examined, sitting in chair. Seems to be little comfortable, less shortness of breath. Still has cough. PHYSICAL EXAMINATION: VITAL SIGNS: He is afebrile, pulse 61, respirations 18, blood pressure 145/71. LUNGS: Bilateral fair airflow. No rhonchi or crackle. HEART: S1 and S2 audible. ABDOMEN: Soft, obese, nontender. No rebound. No guarding. NEUROLOGIC: The patient is awake and alert, able to communicate. LABORATORY EXAM: Blood sugar is 144, blood culture, urine cultures are negative. CT scan of the chest shows multifocal pneumonia. ASSESSMENT AND PLAN: 1. Multifocal pneumonia. 2. History of rectosigmoid cancer, status post colostomy followed by reversal. 3. Chronic intermittent diarrhea because of partial colectomy. 4. Anxiety disorder. 5. History of sick sinus syndrome, status post pacemaker placement. 6. History of chronic obstructive pulmonary disease. 7. Non-insulin dependent diabetes. PLAN: We will follow up his echocardiogram to see LV function. We will continue nebulizer treatment. Currently, he is on cefepime and doxycycline. We will continue that. Continue nebulizer treatment. Request for Physical Therapy evaluation. The patient seems to be clinically stable. We can discontinue his telemetry. We will follow up his CBC. Revaluate the patient in a.m. Sundar Hartman MD
[2018-01-27] MEDS: Enoxaparin 40 mg Syringe SC SCH (14:11)
[2018-01-27] MEDS: Potassium Chloride 20 mEq ER Tab PO SCH (14:12)
--- NOTE | 2018-01-27 17:20 | PN ---
DATE: 01/27/2018 LOCATION: Patient in room 269, bed 2. REASON FOR CONSULTATION: Shortness of breath, diabetes mellitus, pacemaker, hypertension, respiratory tract infection with fever, CHF. SUBJECTIVE: Patient is sitting in chair comfortably. Patient denies any chest pain or palpitation, but he still has shortness of breath, but definitely shortness of breath has improved significantly since admission. Patient was admitted with sudden onset of shortness of breath and cough and he had also fever. PHYSICAL EXAMINATION: VITAL SIGNS: Blood pressure 145/71, respiration 18, pulse 61, temperature 98.2. HEENT: Head is normocephalic. Eyes: Pupils normal. Conjunctivae normal. Nose and throat normal. NECK: JVP low. Carotids equal. THORAX: AP diameter normal. LUNGS: No significant rales. CARDIOVASCULAR: S1 and S2. ABDOMEN: Protuberant. No organomegaly. EXTREMITIES: No clubbing. No cyanosis. LABORATORY DATA: WBC 13.5, hemoglobin 14.8, hematocrit 43.3, platelet 141. Sugar 144. Sodium 143, potassium 4.5, BUN 19, creatinine 1. AST and ALT normal. Troponin less than 0.01. Total protein was normal. Today's chest x-ray compared to admission x-ray shows much improvement. Patient received Lasix 40 mg IV yesterday. DIAGNOSES: Sudden onset of shortness of breath and fever, respiratory tract infection, congestive heart failure due to acute left ventricular systolic failure, hypertension, coronary artery disease, inguinal hernia repair in the past. Patient had bilateral pneumonia in 09/2017, status post permanent pacemaker insertion. PLAN: We will give Lasix 40 IV daily and add K-Dur 20 mEq p.o. daily. Patient on DuoNeb hand nebulizer therapy, Januvia 100 mg daily, cefepime 1 g IV every 12 hours, vancomycin 1 g IV every 12 hours, doxycycline 100 mg IV every 12 hours. We will add Ecotrin 81 mg daily. We will also give Lovenox 40 mg subcu daily. We will follow with you. Crow Brown MD
--- NOTE | 2018-01-27 20:05 | CP.PCM.PN ---
Subjective - Date & Time of Evaluation Date of Evaluation: 01/27/18 Time of Evaluation: 14:30 - Subjective Subjective: Comfortable, breathing better, no fevers, not in distress. Objective - Vital Signs/Intake and Output Vital Signs (last 24 hours): Temp Pulse Resp BP Pulse Ox 98.2 F 62 18 155/62 H 95 01/27/18 12:00 01/27/18 12:00 01/27/18 12:00 01/27/18 14:12 01/27/18 06:00 Intake and Output: 01/27/18 01/28/18 18:59 06:59 Intake Total 1770 Output Total 400 Balance 1370 - Medications Medications: Current Medications Acetaminophen (Tylenol 325mg Tab) 650 mg PO Q6H PRN PRN Reason: Fever >100.4 F Albuterol/Ipratropium (Duoneb 3 Mg/0.5 Mg (3 Ml) Ud) 3 ml IH Q2H PRN PRN Reason: Shortness of Breath Last Admin: 01/27/18 17:58 Dose: 3 ml Albuterol/Ipratropium (Duoneb 3 Mg/0.5 Mg (3 Ml) Ud) 3 ml IH [id number] [facility] Last Admin: 01/27/18 19:42 Dose: 3 ml Alprazolam (Xanax) 0.25 mg PO TID PRN; Protocol PRN Reason: Anxiety Stop: 02/03/18 14:01 Aspirin (Ecotrin) 81 mg PO DAILY [facility] Last Admin: 01/27/18 14:12 Dose: 81 mg Enoxaparin Sodium (Lovenox) 40 mg SC DAILY [facility] PRN Reason: Protocol Last Admin: 01/27/18 14:11 Dose: 40 mg Furosemide (Lasix) 40 mg IV DAILY [facility] Last Admin: 01/27/18 14:12 Dose: 40 mg Guaifenesin (Robitussin) 200 mg PO Q4H PRN PRN Reason: Cough and congestion Last Admin: 01/26/18 02:38 Dose: 200 mg Vancomycin HCl (Vancomycin 1gm) 1 gm in 250 mls @ 167 mls/hr IVPB Q12H [facility] PRN Reason: Protocol Last Admin: 01/27/18 14:11 Dose: 167 mls/hr Cefepime HCl (Maxipime 1gm) 1 gm in 100 mls @ 100 mls/hr IVPB Q12 [facility] PRN Reason: Protocol Last Admin: 01/27/18 12:28 Dose: 100 mls/hr Doxycycline Hyclate 100 mg/ (Sodium Chloride) 100 mls @ 100 mls/hr IVPB Q12 [facility] PRN Reason: Protocol Last Admin: 01/27/18 09:12 Dose: 100 mls/hr Insulin Human Regular (Humulin R Med) 0 units SC ACHS [facility] PRN Reason: Protocol Last Admin: 01/27/18 14:12 Dose: Not Given Ondansetron HCl (Zofran Inj) 4 mg IVP Q6H PRN PRN Reason: Nausea/Vomiting Pantoprazole Sodium (Protonix Ec Tab) 40 mg PO 0630 [facility] Last Admin: 01/27/18 05:47 Dose: 40 mg Potassium Chloride (K-Dur 20 Meq Er Tab) 20 meq PO BRK [facility] Last Admin: 01/27/18 14:12 Dose: 20 meq Sitagliptin Phosphate (Januvia) 100 mg PO DAILY [facility] Last Admin: 01/27/18 14:12 Dose: 100 mg - Labs Labs: PT 12.0 SECONDS (9.4-12.5) 01/25/18 10:40 INR 1.04 (0.93-1.08) 01/25/18 10:40 APTT 25.1 Seconds (25.1-36.5) 01/25/18 10:40 - Constitutional Appears: Chronically Ill - Head Exam Head Exam: NORMAL INSPECTION - ENT Exam ENT Exam: Mucous Membranes Moist - Neck Exam Neck Exam: absent: Meningismus - Respiratory Exam Respiratory Exam: Decreased Breath Sounds - Cardiovascular Exam Cardiovascular Exam: +S1, +S2 - GI/Abdominal Exam GI & Abdominal Exam: Soft. absent: Tenderness Assessment and Plan - Assessment and Plan (Free Text) Plan: Assessment severe sepsis with acute renal failure due to multifocal pneumonia rectal cancer DM HTN CAD chronic back pain Plan Continue Vancomycin, Cefepime and Doxycycline day 2 pending urine Legionella Ag ; cultures are negative x 1 day will continue to monitor clinically
[2018-01-28] MEDS: Albuterol-Ipratrop 3 mg / 0.5 (3 ml) UD IH SCH ×4 (01:25→22:38)
[2018-01-28] MEDS: Vancomycin 1gm in NS 250ml 1 GM/250 ML BAG IVPB SCH ×2 (02:53→14:40)
[2018-01-28] MEDS: Pantoprazole 40 mg EC Tab PO SCH (05:55)
--- NOTE | 2018-01-28 06:19 | CON ---
DATE: PULMONARY CONSULTATION REFERRING PHYSICIAN: Sundar Hartman MD REASON FOR CONSULTATION: Cough, shortness of breath, pulmonary infiltrate. HISTORY OF PRESENT ILLNESS: This is a 67-year-old gentleman with past medical history significant for cardiomyopathy with cardiac pacemaker, apparently been bradycardic, hypertension, coronary artery disease, history of colorectal cancer in the past requiring surgery, recently his of pneumonia at [facility], comes in with cough, shortness of breath, had a CT done which shows bilateral pulmonary infiltrate. He was treated with antibiotics, steroids, diuretics; feels better. Admitted to have a sleep apnea syndrome in the past. He is a claustrophobic, could not use CPAP/BiPAP while in the hospital and never was ordered for home. Admit to have snoring, daytime tired and sleepy. PAST MEDICAL HISTORY: As per history of present illness. ALLERGIES: None known. SOCIAL HISTORY: Former smoker. Denied any alcohol use. FAMILY HISTORY: No significant cardiopulmonary disease reported. MEDICATIONS: He is on doxycycline 100 mg twice a day, albuterol/Atrovent nebulizer every 2 hours p.r.n. and every 6 hours [id number], Ecotrin 81 mg daily, insulin coverage, Januvia 100 mg daily, potassium 20 mEq daily, Lasix 40 mg IV daily, Lovenox 40 mg daily, cefepime 1 g IV every 12 hours, Protonix 40 mg daily, Robitussin 20 mg every 4 hours p.r.n., Tylenol p.r.n., vancomycin 1 g IV every 12 hours, Xanax 0.25 mg 3 times a day p.r.n., Zofran p.r.n. basis. REVIEW OF SYSTEM: No headache, no rhinitis. Has cough, shortness of breath. No chest pain. No nausea, no vomiting. No diarrhea. Did have some leg swelling. Admitted to have snoring at nighttime, daytime sleepy and tired. PHYSICAL EXAMINATION: GENERAL: Sitting up in a chair, in no acute distress. VITAL SIGNS: Temperature is 98, heart rate 62, respiratory rate is 18, blood pressure 155/62, pulse ox 95% on nasal cannula. HEENT: Moist mucous membrane. Crowded airway. Mallampati score is 4. Short thick neck. LUNGS: Have a few crackles at bases. Scattered rhonchi. HEART: S1 and S2. ABDOMEN: Soft, nontender, no organomegaly. EXTREMITIES: No edema. NEUROLOGIC: Awake and alert. Follows simple commands. LABORATORY DATA: Shows hemoglobin 14.8, hematocrit 43.3, WBC 13.5, platelet is 141. INR 1.04. PTT 25. Blood gases done on admission which was VBG, pH 7.33, pCO2 of 55, O2 of 48. Blood sugar today is 156. Procalcitonin is 0.6. Sodium 143, potassium 4.5, chloride 103, bicarbonate 27, BUN 19, creatinine 1, calcium 9.2, magnesium 1.5, AST 43, ALT 46, alk phos is 65. ProBNP 324. Albumin is 3.9. Urinalysis shows protein 100, glucose 100. HIV is negative. Influenza A and B is negative. Blood culture, no growth. Urine culture, there is no growth. CAT scan of the chest which was done on admission, shows multilobar infiltrate, has a left-sided pacemaker, enlarged pulmonary trunk. IMPRESSION AND PLAN: Chronic obstructive lung disease, obstructive sleep apnea syndrome, cardiomyopathy, hypertension, coronary artery disease, obesity, cardiac arrhythmia requiring pacemaker. Yes, the procalcitonin is a little bit high, but my clinical feeling is mostly heart failure, even though BNP does not seem that high, agree with echocardiogram, we will review echocardiogram. Patient educated about sleep apnea and its relation to cardiomyopathy. For now, continue bronchodilator with diuretics. Gastric prophylaxis, deep venous thrombosis prophylaxis. On discharge, definitely needs pulmonary function tests and also may need separate study to do half apnea, half continuous positive airway pressure. Case discussed with Dr. Hartman. Thank you and we will follow with you. Crow Stahl MD
[2018-01-28 07:36] LABS: BASO # 0.01 K/mm3 (0.0-2.0); BASO % 0.1 % (0.0-3.0); EOS # 0.6 (0.0-0.7); EOS % 6.3 % (1.5-5.0); GRAN # 7.36 (1.4-6.5); GRAN % 73.6 % (50.0-68.0); HEMOGLOBIN 14.3 g/dL (14.0-18.0); LYMPH # 1.1 (1.2-3.4); LYMPH % 10.6 % (22.0-35.0); MEAN CELL VOLUME 90.2 fl (80.0-105.0); MEAN CORPUSCULAR HEMOGLOBIN 30.4 pg (25.0-35.0); MEAN CORPUSCULAR HGB CONC 33.6 g/dl (31.0-37.0); MONO # 0.9 (0.1-0.6); MONO % 9.4 % (1.0-6.0); RBC 4.71 10^6/uL (3.5-6.1); RED CELL DISTRIBUTION WIDTH 14.9 % (11.5-14.5)
[2018-01-28 07:46] LABS: ALB/GLOB RATIO 1.3 (1.1-1.8); ALBUMIN 4.4 g/dL (3.0-4.8); ALT/SGPT 42 U/L (7-56); AST/SGOT 40 U/L (17-59); BLOOD UREA NITROGEN 18 mg/dL (7-21); CALCIUM 9.4 mg/dL (8.4-10.5); GFR AFRICAN-AMERICAN > 60; GFR NON-AFRICAN AMERICAN > 60
[2018-01-28] MEDS: Insulin Reg-MEDIUM-Coverage SC SCH ×3 (08:20→16:32)
[2018-01-28] MEDS: Potassium Chloride 20 mEq ER Tab PO SCH (08:27)
--- NOTE | 2018-01-28 09:51 | CARD ---
APPROVED REPORT EXAM: Two-dimensional and M-mode echocardiogram with Doppler and color Doppler. Other Information Quality : AverageRhythm : INDICATION Dyspnea , Evaluate LVFX 2D DIMENSIONS Left Atrium (2D)4.2 (1.6-4.0cm)IVSd1.2 (0.7-1.1cm) LVDd5.7 (3.9-5.9cm)PWd1.2 (0.7-1.1cm) LVDs4.2 (2.5-4.0cm)FS (%) 30.2 % LVEF (%)56.0 (>50%) M-Mode DIMENSIONS Aortic Root3.80 (2.2-3.7cm)Aortic Cusp Exc.1.90 (1.5-2.0cm) Aortic Valve AoV Peak Cvltogqg503.0cm/Ratna Peak GR.12mmHgLVOT Peak Neknktdy462.0cm/s LVOT VTI26.60cmAI P 1/2 Nnby411ur Mitral Valve MV E Whtmuxme28.8cm/sMV A Wnrazvvq84.6cm/sE/A ratio1.4 TDI Lateral E' Peak V10.60cm/sMedial E' Peak V6.92cm/sE/Lateral E'9.0 E/Medial E'13.8 Pulmonary Valve PV Peak Uinxhmvg05.7cm/sPV Peak Grad.2mmHg Tricuspid Valve TR Peak Yusnqpcp231ec/sRAP CLFGVCXW43wwUqME Peak Gr.27mmHg [id number] LEFT VENTRICLE The left ventricle is normal size. There is normal left ventricular wall thickness. The left ventricular function is normal. The left ventricular ejection fraction is within the normal range. There is normal LV segmental wall motion. RIGHT VENTRICLE The right ventricle is normal size. There is a pacemaker/ICD lead in the right ventricle. ATRIA The left atrium is mildly dilated. AORTIC VALVE The aortic valve is normal in structure. There is trace aortic regurgitation. MITRAL VALVE The mitral valve is normal in structure. Mitral regurgitation is mild. TRICUSPID VALVE The tricuspid valve is normal in structure. There is mild tricuspid regurgitation. PULMONIC VALVE The pulmonic valve is not well visualized. There is trace pulmonic valvular regurgitation. GREAT VESSELS The aortic root is normal in size. PERICARDIAL EFFUSION There is no pericardial effusion. <Conclusion> The left ventricle is normal size. There is normal left ventricular wall thickness. The left ventricular function is normal. Mitral regurgitation is mild. There is mild tricuspid regurgitation.
[2018-01-28] MEDS: Cefepime 1gm in NS 100ml 1 GM/100 ML BAG IVPB SCH ×2 (10:11→21:17)
[2018-01-28] MEDS: Enoxaparin 40 mg Syringe SC SCH (10:12)
[2018-01-28] MEDS: Albuterol-Ipratrop 3 mg / 0.5 (3 ml) UD IH PRN (12:39)
--- NOTE | 2018-01-28 13:19 | PN ---
DATE: 01/28/2018 SUBJECTIVE: The patient is 67 years old, seen and examined, doing well, better than before. Less shortness of breath. Still has cough. Very upset and depressed about his 's . Keeping talking about her. He states he does not feel good, is not suicidal either. He thinks he will be stronger, but is going to take time. At this point, he does not offer any other complaint other than feeling depressed. No fever. No chills. No nausea or vomiting. Eating and tolerating. PHYSICAL EXAMINATION: VITAL SIGNS: He is afebrile, pulse 60, respirations 20, blood pressure 126/53. LUNGS: Bilateral diffusely decreased breath sound. Occasional crackle. HEART: S1 and S2 audible. ABDOMEN: Soft, obese, nontender. No rebound. No guarding. NEUROLOGIC: He is awake, alert, oriented, communicative. LABORATORY EXAM: WBC is 10, hemoglobin 14, hematocrit 42, platelet 163. Chemistry: Sodium 143, potassium 4.5, chloride 103, CO2 of 27, BUN 18, creatinine 1.1, blood sugar of 139. HIV test is negative. Legionella is negative. Blood culture, urine cultures are negative. ASSESSMENT: 1. Multilobar pneumonia. 2. Chronic obstructive pulmonary disease. 3. Morbid obesity. 4. Hypertension. 5. Coronary artery disease. 6. History of arrhythmia, status post pacemaker placement. The patient had echocardiogram done yesterday shows left ventricle is normal in size with normal wall thickness. Mitral regurgitation is mild and there is mild tricuspid regurgitation. PLAN: We will continue the patient on nebulizer treatment. He is on doxycycline. Continue on aspirin. Monitor blood sugar. He is on Januvia. Continue him on Lasix. He is on DVT prophylaxis, getting Maxipime and he is on vancomycin. His repeat x-ray done yesterday shows significant improvement in the pattern of CHF and there is minimal residual vascular and interstitial congestion. I will discuss with Physical Therapy. We will follow up this patient in the a.m. Sundar Hartman MD
--- NOTE | 2018-01-28 15:32 | PN ---
DATE: 01/28/2018 REASON FOR CONSULTATION AND FOLLOWUP: Shortness of breath, diabetes, status post pacemaker, hypertension, pneumonia, fever, sepsis. SUBJECTIVE: Patient denies any chest pain, shortness of breath, or any palpitations. Feels a lot better. PHYSICAL EXAMINATION: GENERAL: The patient not in apparent distress. VITAL SIGNS: Temperature afebrile, heart rate 60, blood pressure ____. HEENT: PERRLA, extraocular muscles intact. NECK: Supple. No carotid tor thyromegaly. CHEST: Clear to auscultation. HEART: S1 and S2, regular. ABDOMEN: Soft. EXTREMITIES: Clubbing and cyanosis negative. LABORATORY DATA: Blood workup as follows. WBC 10, hemoglobin 14.3, hematocrit 42.5, platelet count 163. Chemistry shows sodium 140, potassium 4.5, chloride 106, carbon oxide 20, anion gap of 17, BUN 18, creatinine 1.1. IMPRESSION: Pneumonia, respiratory tract infection, chronic obstructive pulmonary disease, morbid obesity, status post pacemaker. Repeat echo done yesterday that shows preserved left ventricular function, mild mitral regurgitation, mild tricuspid regurgitation, right ventricular systolic pressure of 37. Ejection fraction calculated at 56%. History of permanent pacemaker. Morbid obesity, body mass index 36 kg/m2. RECOMMENDATIONS: Continue gentle diuretics for fluid overload. Continue aggressive treatment for COPD, Lasix changed to once a day and continue DVT prophylaxis. We will follow. Repeat the chest x-ray in the morning and repeat the blood workup in the morning. We will follow with you and repeat the blood workup and chest x-ray in the morning. Crow Jain MD
--- NOTE | 2018-01-28 16:38 | CP.PCM.PN ---
Subjective - Date & Time of Evaluation Date of Evaluation: 01/28/18 Time of Evaluation: 11:45 - Subjective Subjective: Breathing better, no fevers, no diarrhea. Objective - Vital Signs/Intake and Output Vital Signs (last 24 hours): Temp Pulse Resp BP Pulse Ox 98.4 F 60 20 126/63 97 01/28/18 08:17 01/28/18 08:17 01/28/18 08:17 01/28/18 10:13 01/28/18 08:17 Intake and Output: 01/28/18 01/28/18 06:59 18:59 Intake Total 660 Output Total 900 Balance -240 - Medications Medications: Current Medications Acetaminophen (Tylenol 325mg Tab) 650 mg PO Q6H PRN PRN Reason: Fever >100.4 F Last Admin: 01/28/18 04:51 Dose: 650 mg Albuterol/Ipratropium (Duoneb 3 Mg/0.5 Mg (3 Ml) Ud) 3 ml IH Q2H PRN PRN Reason: Shortness of Breath Last Admin: 01/27/18 17:58 Dose: 3 ml Albuterol/Ipratropium (Duoneb 3 Mg/0.5 Mg (3 Ml) Ud) 3 ml IH [id number] Last Admin: 01/28/18 07:31 Dose: 3 ml Alprazolam (Xanax) 0.25 mg PO TID PRN; Protocol PRN Reason: Anxiety Stop: 02/03/18 14:01 Last Admin: 01/27/18 22:07 Dose: 0.25 mg Aspirin (Ecotrin) 81 mg PO DAILY [facility] Last Admin: 01/28/18 10:12 Dose: 81 mg Enoxaparin Sodium (Lovenox) 40 mg SC DAILY [facility] PRN Reason: Protocol Last Admin: 01/28/18 10:12 Dose: 40 mg Furosemide (Lasix) 40 mg IV DAILY [facility] Last Admin: 01/28/18 10:13 Dose: 40 mg Guaifenesin (Robitussin) 200 mg PO Q4H PRN PRN Reason: Cough and congestion Last Admin: 01/26/18 02:38 Dose: 200 mg Vancomycin HCl (Vancomycin 1gm) 1 gm in 250 mls @ 167 mls/hr IVPB Q12H [facility] PRN Reason: Protocol Last Admin: 01/28/18 02:53 Dose: 167 mls/hr Cefepime HCl (Maxipime 1gm) 1 gm in 100 mls @ 100 mls/hr IVPB Q12 [facility] PRN Reason: Protocol Last Admin: 01/28/18 10:11 Dose: 100 mls/hr Doxycycline Hyclate 100 mg/ (Sodium Chloride) 100 mls @ 100 mls/hr IVPB Q12 [facility] PRN Reason: Protocol Last Admin: 01/28/18 10:12 Dose: 100 mls/hr Insulin Human Regular (Humulin R Med) 0 units SC ACHS [facility] PRN Reason: Protocol Last Admin: 01/28/18 08:20 Dose: Not Given Ondansetron HCl (Zofran Inj) 4 mg IVP Q6H PRN PRN Reason: Nausea/Vomiting Pantoprazole Sodium (Protonix Ec Tab) 40 mg PO 0630 [facility] Last Admin: 01/28/18 05:55 Dose: 40 mg Potassium Chloride (K-Dur 20 Meq Er Tab) 20 meq PO BRK [facility] Last Admin: 01/28/18 08:27 Dose: 20 meq Sitagliptin Phosphate (Januvia) 100 mg PO DAILY [facility] Last Admin: 01/28/18 10:11 Dose: 100 mg - Labs Labs: 01/28/18 07:00 01/28/18 07:00 PT 12.0 SECONDS (9.4-12.5) 01/25/18 10:40 INR 1.04 (0.93-1.08) 01/25/18 10:40 APTT 25.1 Seconds (25.1-36.5) 01/25/18 10:40 - Constitutional Appears: Non-toxic, Chronically Ill - Head Exam Head Exam: NORMAL INSPECTION - Neck Exam Neck Exam: absent: Meningismus - Respiratory Exam Respiratory Exam: Decreased Breath Sounds, Rales (scattered) - Cardiovascular Exam Cardiovascular Exam: +S1, +S2 - GI/Abdominal Exam GI & Abdominal Exam: Soft. absent: Tenderness Assessment and Plan - Assessment and Plan (Free Text) Plan: Assessment severe sepsis due to multifocal pneumonia, slowly improving rectal cancer DM HTN CAD chronic back pain Plan Continue Vancomycin, Cefepime and Doxycycline day 3 pending urine Legionella Ag ; cultures are negative; should complete 5-7 days of therapy will continue to monitor clinically
--- NOTE | 2018-01-29 00:58 | PN ---
DATE: 01/28/2018 REFERRING PHYSICIAN: Sundar Hartman MD. SUBJECTIVE: He is sitting at side of the bed. Daughter at bedside. Feels better. Decreased cough, decreased shortness of breath. No chest pain. No nausea, vomiting, diarrhea. No leg pain or leg swelling. Admits to loud snoring at night and daytime sleepy and tired. OBJECTIVE: GENERAL: In no distress. VITAL SIGNS: Temperature is 98, heart rate is 74, respiratory is 20, blood pressure 104/58, pulse ox 97% on room air while awake. HEENT: Moist mucous membrane. Crowded airway. Mallampati score is 4. NECK: Supple. No JVD. LUNGS: Have a few rhonchi, overall fair airflow. HEART: S1 and S2. ABDOMEN: Soft, nontender, no organomegaly. EXTREMITIES: No edema. NEUROLOGIC: Awake, alert, follows simple command. MEDICATIONS: He is on doxycycline 100 mg twice a day, DuoNeb every 2 hours p.r.n., every 6 hour [id number], Ecotrin 81 mg daily, insulin coverage, Januvia 100 mg daily, potassium 20 mEq daily, Lasix 40 mg daily, Lovenox 40 mg daily, cefepime 1 g IV every 12 hours, Protonix 40 mg daily, Robitussin 20 mg every 4 hours p.r.n., Tylenol p.r.n., vancomycin 1 g IV every 12 hours, Xanax 0.25 mg 3 times a day p.r.n., Zofran p.r.n. basis. LABORATORY DATA: Shows hemoglobin 14.3, hematocrit 42.5, WBC 10, platelet count is 163. Sodium 143, potassium 4.5, chloride 103, bicarbonate 27, BUN 18, creatinine 1.1, glucose 133, calcium 9.4, AST 40, ALT 42, alk phos is 76. Albumin is 4.4. Urine Legionella is negative. Influenza A and B is negative. Microbiology, blood culture, urine culture, sputum culture is unremarkable. Had echocardiogram done which is negative for systolic dysfunction, PA pressure is not bad. IMPRESSION AND PLAN: Chronic obstructive lung disease, obstructive sleep apnea syndrome, normal ejection fraction, heart failure, hypertension, coronary artery disease, history of cardiac arrhythmia requiring pacemaker, obstructive sleep apnea syndrome. Spoke to the patient and the patient's daughter at bedside. All the questions answered. The patient is claustrophobic. We will try nasal mask if he can tolerate with the CPAP; if not, as an outpatient may benefit from nasal pillow mask. Continue diuretics, afterload toolroom helper, antibiotics. To follow up procalcitonin. Thank you and we will follow with you. Crow Stahl MD
[2018-01-29] MEDS: Vancomycin 1gm in NS 250ml 1 GM/250 ML BAG IVPB SCH ×2 (01:38→13:55)
[2018-01-29] MEDS: Albuterol-Ipratrop 3 mg / 0.5 (3 ml) UD IH SCH ×4 (03:14→23:18)
[2018-01-29] MEDS: Pantoprazole 40 mg EC Tab PO SCH (05:02)
[2018-01-29 07:04] LABS: BASO # 0.02 K/mm3 (0.0-2.0); BASO % 0.2 % (0.0-3.0); EOS # 0.8 (0.0-0.7); EOS % 8.9 % (1.5-5.0); GRAN # 6.03 (1.4-6.5); GRAN % 66.7 % (50.0-68.0); HEMOGLOBIN 15.1 g/dL (14.0-18.0); LYMPH # 1.1 (1.2-3.4); LYMPH % 12.1 % (22.0-35.0); MEAN CELL VOLUME 89.7 fl (80.0-105.0); MEAN CORPUSCULAR HEMOGLOBIN 31.1 pg (25.0-35.0); MEAN CORPUSCULAR HGB CONC 34.6 g/dl (31.0-37.0); MONO # 1.1 (0.1-0.6); MONO % 12.1 % (1.0-6.0); RBC 4.86 10^6/uL (3.5-6.1); RED CELL DISTRIBUTION WIDTH 14.7 % (11.5-14.5); WHITE BLOOD COUNT 9.1 10^3/ul (4.5-11.0)
[2018-01-29] MEDS: Insulin Reg-MEDIUM-Coverage SC SCH ×4 (07:41→23:26)
[2018-01-29 07:44] LABS: ALB/GLOB RATIO 1.3 (1.1-1.8); ALBUMIN 4.3 g/dL (3.0-4.8); ALT/SGPT 44 U/L (7-56); AST/SGOT 41 U/L (17-59); BLOOD UREA NITROGEN 21 mg/dL (7-21); GFR AFRICAN-AMERICAN > 60; GFR NON-AFRICAN AMERICAN > 60
[2018-01-29] MEDS: Cefepime 1gm in NS 100ml 1 GM/100 ML BAG IVPB SCH ×2 (09:01→21:46)
[2018-01-29] MEDS: Potassium Chloride 20 mEq ER Tab PO SCH (09:01)
[2018-01-29] MEDS: Enoxaparin 40 mg Syringe SC SCH (09:01)
[2018-01-29] MEDS: Ammonium Lactate 12% Cream (140 g) TOP SCH ×2 (10:00→18:43)
--- NOTE | 2018-01-29 11:42 | RAD ---
HISTORY: F/U pneumonia and compare COMPARISON: 01/27/2018 single-view chest. 01/25/2018 CT thorax. Summary of findings on the comparison examination: Probable multifocal pneumonia. TECHNIQUE: Chest PA and lateral FINDINGS: LUNGS: Modest interval improvement in the left lower lobe infiltrate. Near complete resolution right lower lobe infiltrate. PLEURA: No significant pleural effusion identified. No pneumothorax apparent. CARDIOVASCULAR: No radiographic findings to suggest acute or significant cardiovascular disease. Position/ configuration of pacemaker device: Satisfactory. OSSEOUS STRUCTURES: No significant abnormalities. VISUALIZED UPPER ABDOMEN: Normal. OTHER FINDINGS: None. IMPRESSION: Interval improvement without complete resolution bilateral multifocal infiltrates.
--- NOTE | 2018-01-29 12:19 | CP.PCM.PN ---
Subjective - Date & Time of Evaluation Date of Evaluation: 01/29/18 Time of Evaluation: 11:35 - Subjective Subjective: Patient is resting comfortably on a chair, breathing much better, no fevers. Objective - Vital Signs/Intake and Output Vital Signs (last 24 hours): Temp Pulse Resp BP Pulse Ox 97.6 F 60 20 139/78 96 01/29/18 08:22 01/29/18 08:22 01/29/18 08:22 01/29/18 09:02 01/29/18 08:22 Intake and Output: 01/29/18 01/29/18 06:59 18:59 Intake Total 720 Output Total 500 Balance 220 - Medications Medications: Current Medications Acetaminophen (Tylenol 325mg Tab) 650 mg PO Q6H PRN PRN Reason: Fever >100.4 F Last Admin: 01/29/18 05:02 Dose: 650 mg Albuterol/Ipratropium (Duoneb 3 Mg/0.5 Mg (3 Ml) Ud) 3 ml IH Q2H PRN PRN Reason: Shortness of Breath Last Admin: 01/28/18 12:39 Dose: 3 ml Albuterol/Ipratropium (Duoneb 3 Mg/0.5 Mg (3 Ml) Ud) 3 ml IH [id number] Last Admin: 01/29/18 07:25 Dose: 3 ml Alprazolam (Xanax) 0.25 mg PO TID PRN; Protocol PRN Reason: Anxiety Stop: 02/03/18 14:01 Last Admin: 01/28/18 21:18 Dose: 0.25 mg Aspirin (Ecotrin) 81 mg PO DAILY [facility] Last Admin: 01/29/18 09:01 Dose: 81 mg Doxycycline Hyclate (Doryx) 100 mg PO Q12 [facility] Last Admin: 01/29/18 09:01 Dose: 100 mg Enoxaparin Sodium (Lovenox) 40 mg SC DAILY [facility] PRN Reason: Protocol Last Admin: 01/29/18 09:01 Dose: 40 mg Furosemide (Lasix) 40 mg IV DAILY [facility] Last Admin: 01/29/18 09:02 Dose: 40 mg Guaifenesin (Robitussin) 200 mg PO Q4H PRN PRN Reason: Cough and congestion Last Admin: 01/26/18 02:38 Dose: 200 mg Vancomycin HCl (Vancomycin 1gm) 1 gm in 250 mls @ 167 mls/hr IVPB Q12H [facility] PRN Reason: Protocol Last Admin: 01/29/18 01:38 Dose: 167 mls/hr Cefepime HCl (Maxipime 1gm) 1 gm in 100 mls @ 100 mls/hr IVPB Q12 [facility] PRN Reason: Protocol Last Admin: 01/29/18 09:01 Dose: 100 mls/hr Insulin Human Regular (Humulin R Med) 0 units SC ACHS [facility] PRN Reason: Protocol Last Admin: 01/29/18 07:41 Dose: Not Given Lactic Acid (Lac-Hydrin 12% Cream (140 G)) 0 ea TOP BID [facility] Last Admin: 01/29/18 10:00 Dose: 1 gm Ondansetron HCl (Zofran Inj) 4 mg IVP Q6H PRN PRN Reason: Nausea/Vomiting Pantoprazole Sodium (Protonix Ec Tab) 40 mg PO 0630 [facility] Last Admin: 01/29/18 05:02 Dose: 40 mg Potassium Chloride (K-Dur 20 Meq Er Tab) 20 meq PO BRK [facility] Last Admin: 01/29/18 09:01 Dose: 20 meq Sitagliptin Phosphate (Januvia) 100 mg PO DAILY [facility] Last Admin: 01/29/18 09:01 Dose: 100 mg - Labs Labs: 01/29/18 06:30 01/29/18 06:30 PT 12.0 SECONDS (9.4-12.5) 01/25/18 10:40 INR 1.04 (0.93-1.08) 01/25/18 10:40 APTT 25.1 Seconds (25.1-36.5) 01/25/18 10:40 - Constitutional Appears: Chronically Ill - Head Exam Head Exam: NORMAL INSPECTION - Neck Exam Neck Exam: absent: Meningismus - Respiratory Exam Respiratory Exam: Decreased Breath Sounds - Cardiovascular Exam Cardiovascular Exam: +S1, +S2 - GI/Abdominal Exam GI & Abdominal Exam: Soft. absent: Tenderness Assessment and Plan - Assessment and Plan (Free Text) Plan: Assessment severe sepsis due to multifocal pneumonia, slowly improving rectal cancer DM HTN CAD chronic back pain Plan Continue Vancomycin, Cefepime and Doxycycline day 4; urine Legionella Ag is negative; cultures are negative; should complete 5-7 days of therapy; follow up repeat PCT will continue to monitor clinically
--- NOTE | 2018-01-29 13:50 | PN ---
DATE: 01/29/2018 SUBJECTIVE: The patient is 67 years old, seen and examined, ambulatory. Gets shortness of breath on walking. Has scanty cough. No hemoptysis. PHYSICAL EXAMINATION: VITAL SIGNS: He is afebrile, pulse 60, respirations 20, blood pressure 123/74. LUNGS: Bilateral few expiratory rhonchi scattered bilaterally. HEART: S1 and S2 audible. ABDOMEN: Soft. Nontender. No rebound. No guarding. NEUROLOGIC: He is awake, alert, oriented, communicative. LABORATORY EXAM: Sodium 143, potassium 4.2, chloride 106, CO2 of 22, BUN 21, creatinine 0.9, blood sugar of 138. His WBC is 9.1, hemoglobin 15, hematocrit 43, platelet 184. Blood culture, urine cultures, foot cultures are negative. X-ray chest shows interval improvement without complete resolution. Bilateral multifocal infiltrate. ASSESSMENT AND PLAN: 1. Bilateral multilobar infiltrate. 2. Anxiety disorder. 3. Mus-gknvard-kvrywcymq diabetes. 4. Hypertension. 5. Hyperlipidemia. 6. Status post pacemaker placement. 7. Morbid obesity. 8. Chronic obstructive pulmonary disease. We will continue on small dose of diuretics and we will reevaluate in the a.m. and make discharge plan soon. Sundar Hartman MD
--- NOTE | 2018-01-29 14:13 | PN ---
DATE: 01/29/2018 LOCATION: The patient in room 571, bed 1. REASON FOR CONSULTATION: Follow up shortness of breath, diabetes, status post pacemaker insertion, hypertension, pneumonia, fever, sepsis. SUBJECTIVE: The patient's breathing is much better. Denies chest pain. His cough is also decreased. He still has cough, but is decreasing. Denies any palpitations. PHYSICAL EXAMINATION: VITAL SIGNS: Blood pressure 123/74, respirations 20, pulse 60, temperature 97.6. HEENT: Head is normocephalic. Eyes: Pupils normal. Conjunctivae normal. Nose and throat normal. NECK: JVP low. Carotids equal. THORAX: AP diameter normal. Pacemaker site intact. LUNGS: A few rales. CARDIOVASCULAR: S1 and S2. ABDOMEN: Protuberant. No organomegaly. EXTREMITIES: No clubbing. No cyanosis. LABORATORY DATA: WBC 9.1, hemoglobin 15.1, hematocrit 43.6, platelets 184. Sodium 143, potassium 4.2, BUN 21, creatinine 0.9. AST, ALT normal. Total protein, albumin normal. DIAGNOSES: Bilateral pneumonia, congestive heart failure, chronic obstructive pulmonary disease, morbid obesity, status post permanent pacemaker insertion. Echocardiogram showed normal left ventricular ejection fraction of 56%. Normal left ventricle size. Normal ventricle wall thickness. Normal systolic function. Mild mitral regurgitation. Mild tricuspid regurgitation. Right ventricular systolic pressure 37 mmHg. The patient's congestive heart failure probably basis of the bilateral pneumonia and sepsis. Status post pacemaker insertion. PLAN: The patient is getting doxycycline 100 mg p.o. every 12 hours, aspirin 81 mg daily, Januvia 100 mg daily, potassium 20 mEq daily, furosemide 40 IV daily, Lovenox 40 mg subcu daily, cefepime 1 g IV every 12 hours, Protonix 40 daily, vancomycin 1 g IV every 12 hours. The patient will have a repeat chest x-ray today. In the meantime, we will continue present therapy. We will follow. Crow Brown MD
--- NOTE | 2018-01-29 18:17 | PN ---
DATE: 01/29/2018 PULMONARY PROGRESS NOTE REFERRING PHYSICIAN: Dr. Hartman. SUBJECTIVE: He is out of bed to chair. Night was remarkable. Could not use CPAP, use about 20 minutes claustrophobic and pulled out CPAP. Cough and shortness of breath is better. No nausea, vomiting, diarrhea, leg pain, or leg swelling. OBJECTIVE: GENERAL: In no acute distress. VITAL SIGNS: Temperature is 98, heart rate 60, respiratory rate is 20, blood pressure 139/78, pulse ox 96% on nasal cannula. HEENT: Moist mucous membrane. Crowded airway. Mallampati score is 4. NECK: Supple. No JVD. LUNGS: Have fair airflow with rhonchi. HEART: S1 and S2. ABDOMEN: Soft, nontender, no organomegaly. EXTREMITIES: No edema. NEUROLOGIC: Awake and follows simple command. MEDICATIONS: He is on doxycycline 100 mg twice a day, DuoNeb every 2 hours p.r.n., DuoNeb every 6 hours [id number], Ecotrin 81 mg daily, insulin coverage, Januvia 100 mg daily, potassium 20 mEq daily, lactic acid at affected area twice a day, Lasix 40 mg IV daily, Lovenox 40 mg subcu daily, cefepime 1 g every 12 hours, Protonix 40 mg daily, Robitussin 200 mg every 4 hours p.r.n., Tylenol p.r.n., vancomycin 1 g IV every 12 hours, Xanax 0.25 mg three times a day p.r.n., Zofran p.r.n. basis. LABORATORY DATA: Shows hemoglobin 15.1, hematocrit 43.6, WBC 9.1, platelet is 184. Sodium 143, potassium 4.2, chloride 106, bicarbonate 22, BUN 21, creatinine 0.9, glucose 138, calcium 9, AST 41, ALT 44, alk phos is 82. Albumin is 4.3. Microbiology: Blood culture, urine culture, sputum culture is unremarkable. Chest x-ray done today shows interval improvement without complete resolution of bilateral multifocal infiltrate. IMPRESSION AND PLAN: Chronic obstructive lung disease, clinically has obstructive sleep apnea syndrome, has a normal ejection fraction, heart failure, hypertension, coronary artery disease, history of cardiac arrhythmia, requiring pacemaker. I spoke to patient and nursing staff. Pulmonary point of view, he is doing well. Could be discharged home on tapered dose of steroids and antibiotics as per Infectious Disease, sleep apnea precaution. Outpatient will do sleep study and try nasal pillow mask. Will need further follow up x-rays as outpatient until the resolution of infiltrate. The patient is urged to lose weight. Also will need PFT upon discharge as outpatient. Thank you and we will follow with you. Crow Stahl MD
[2018-01-30] MEDS: Vancomycin 1gm in NS 250ml 1 GM/250 ML BAG IVPB SCH ×2 (01:10→13:59)
[2018-01-30] MEDS: Pantoprazole 40 mg EC Tab PO SCH ×2 (03:58→06:34)
[2018-01-30] MEDS: Albuterol-Ipratrop 3 mg / 0.5 (3 ml) UD IH SCH ×4 (04:05→20:34)
[2018-01-30] MEDS: Insulin Reg-MEDIUM-Coverage SC SCH ×4 (08:09→22:09)
[2018-01-30] MEDS: Potassium Chloride 20 mEq ER Tab PO SCH (10:45)
[2018-01-30] MEDS: Ammonium Lactate 12% Cream (140 g) TOP SCH ×2 (10:46→17:10)
[2018-01-30] MEDS: Cefepime 1gm in NS 100ml 1 GM/100 ML BAG IVPB SCH ×2 (10:46→21:17)
[2018-01-30] MEDS: Enoxaparin 40 mg Syringe SC SCH (10:46)
--- NOTE | 2018-01-30 11:17 | CP.PCM.PN ---
Subjective - Date & Time of Evaluation Date of Evaluation: 01/30/18 Time of Evaluation: 07:15 - Subjective Subjective: Awake, sitting at side of bed, denies shortness of breath, denies chest pain Reason for consultation and follow up: Cardiac evaluation, shortness of breath, pneumonia, history of permanent pacemaker, hypertension Seen and examined by me and Dr. Brown Objective - Vital Signs/Intake and Output Vital Signs (last 24 hours): Temp Pulse Resp BP Pulse Ox 98 F 71 20 147/97 H 96 01/30/18 08:17 01/30/18 08:17 01/30/18 08:17 01/30/18 10:44 01/30/18 08:17 Intake and Output: 01/30/18 01/30/18 06:59 18:59 Intake Total 180 Balance 180 - Medications Medications: Current Medications Acetaminophen (Tylenol 325mg Tab) 650 mg PO Q6H PRN PRN Reason: Fever >100.4 F Last Admin: 01/29/18 05:02 Dose: 650 mg Albuterol/Ipratropium (Duoneb 3 Mg/0.5 Mg (3 Ml) Ud) 3 ml IH Q2H PRN PRN Reason: Shortness of Breath Last Admin: 01/28/18 12:39 Dose: 3 ml Albuterol/Ipratropium (Duoneb 3 Mg/0.5 Mg (3 Ml) Ud) 3 ml IH [id number] [facility] Last Admin: 01/30/18 09:21 Dose: 3 ml Alprazolam (Xanax) 0.25 mg PO TID PRN; Protocol PRN Reason: Anxiety Stop: 02/03/18 14:01 Last Admin: 01/29/18 21:46 Dose: 0.25 mg Aspirin (Ecotrin) 81 mg PO DAILY [facility] Last Admin: 01/30/18 10:45 Dose: 81 mg Doxycycline Hyclate (Doryx) 100 mg PO Q12 [facility] Last Admin: 01/30/18 10:45 Dose: 100 mg Enoxaparin Sodium (Lovenox) 40 mg SC DAILY [facility] PRN Reason: Protocol Last Admin: 01/30/18 10:46 Dose: 40 mg Furosemide (Lasix) 40 mg IV DAILY [facility] Last Admin: 01/30/18 10:44 Dose: 40 mg Guaifenesin (Robitussin) 200 mg PO Q4H PRN PRN Reason: Cough and congestion Last Admin: 01/26/18 02:38 Dose: 200 mg Vancomycin HCl (Vancomycin 1gm) 1 gm in 250 mls @ 167 mls/hr IVPB Q12H [facility] PRN Reason: Protocol Last Admin: 01/30/18 01:10 Dose: 167 mls/hr Cefepime HCl (Maxipime 1gm) 1 gm in 100 mls @ 100 mls/hr IVPB Q12 [facility] PRN Reason: Protocol Last Admin: 01/30/18 10:46 Dose: 100 mls/hr Insulin Human Regular (Humulin R Med) 0 units SC ACHS [facility] PRN Reason: Protocol Last Admin: 01/30/18 08:09 Dose: Not Given Lactic Acid (Lac-Hydrin 12% Cream (140 G)) 0 ea TOP BID [facility] Last Admin: 01/30/18 10:46 Dose: 1 gm Ondansetron HCl (Zofran Inj) 4 mg IVP Q6H PRN PRN Reason: Nausea/Vomiting Pantoprazole Sodium (Protonix Ec Tab) 40 mg PO 0630 [facility] Last Admin: 01/30/18 06:34 Dose: 40 mg Potassium Chloride (K-Dur 20 Meq Er Tab) 20 meq PO BRK [facility] Last Admin: 01/30/18 10:45 Dose: 20 meq Sitagliptin Phosphate (Januvia) 100 mg PO DAILY [facility] Last Admin: 01/30/18 10:45 Dose: 100 mg - Labs Labs: 01/29/18 06:30 01/29/18 06:30 PT 12.0 SECONDS (9.4-12.5) 01/25/18 10:40 INR 1.04 (0.93-1.08) 01/25/18 10:40 APTT 25.1 Seconds (25.1-36.5) 01/25/18 10:40 - Constitutional Appears: No Acute Distress - Eye Exam Eye Exam: Normal appearance - ENT Exam ENT Exam: Mucous Membranes Moist - Respiratory Exam Respiratory Exam: Decreased Breath Sounds, Rhonchi, NORMAL BREATHING PATTERN - Cardiovascular Exam Cardiovascular Exam: +S1, +S2 Additional comments: PPM - GI/Abdominal Exam GI & Abdominal Exam: Soft, Normal Bowel Sounds - Extremities Exam Extremities Exam: Normal Capillary Refill - Neurological Exam Neurological Exam: Alert, Awake, Oriented x3 - Psychiatric Exam Psychiatric exam: Normal Affect, Normal Mood - Skin Skin Exam: Normal Color, Warm Assessment and Plan - Assessment and Plan (Free Text) Assessment: A 67 year old male morbidly obese who was came in to the ER due to shortness of breath and dry cough. history of hypertension, CAD, colorectal cancer,colostomy reversal, pacemaker "placed due to bradycardia," and recent admission on for bilateral pneumonia, Plan: Doing much better Denies shortness of breath or chest pain Refused to use BIPAP/CPAP, claimed mask does not fit well He has his own at home and compliant at home Chest x-ray yesterday improving infiltrates Ambulatory On ASA 81 mg daily, Continue current medications Continue current treatment Will follow up Plan and treatment discussed with Dr. Brown
--- NOTE | 2018-01-30 13:43 | PN ---
DATE: 01/30/2018 PULMONARY PROGRESS NOTE REFERRING PHYSICIAN: Sundar Hartman MD SUBJECTIVE: He is out of bed to chair, having lunch. Daughter is at bedside. Feels much better. No headache, no rhinitis. Could not use CPAP. No nausea, no vomiting, no diarrhea. No leg pain or leg swelling. OBJECTIVE: GENERAL: In no acute distress. VITAL SIGNS: Temperature is 98, heart rate 71, respiratory rate is 20, blood pressure 147/97, pulse ox 96% on room air. HEENT: Moist mucous membrane. Crowded airway. NECK: Supple. No JVD. LUNGS: Has a prolonged expiratory phase. HEART: S1 and S2. ABDOMEN: Soft, nontender. No organomegaly. EXTREMITIES: No edema. NEUROLOGICAL: Awake and alert. Follows simple command. MEDICATIONS: He is on doxycycline 100 mg twice a day, DuoNeb every 12 hours p.r.n., every 6 hours [id number], Ecotrin 81 mg daily, insulin coverage, Januvia 100 mg daily, potassium 20 mEq daily, Lasix 40 mg IV daily, Lovenox 40 mg daily, cefepime 1 g IV every 12 hours, Protonix 40 mg daily, Robitussin 200 mg every 4 hours p.r.n., Tylenol p.r.n., vancomycin 1 g IV every 12 hours, Xanax 0.25 mg three times a day and p.r.n., Zofran p.r.n. basis. LABORATORY DATA: Reviewed. Noted blood sugar this morning 137. Microbiology: Blood culture, sputum culture, urine culture is unremarkable. IMPRESSION AND PLAN: Chronic obstructive lung disease, may have sleep apnea syndrome, normal ejection fraction, heart failure, hypertension, coronary artery disease, history of cardiac arrhythmia requiring pacemaker. Pulmonary point of view, he is slowly improving. Continue bronchodilator. 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 Antibiotics as per Infectious Diseases. Outpatient PFT. Need sleep study to qualify for sleep. CPAP, will benefit from nasal pillow mask. Need to lose weight. Spoke to the patient's daughter and the patient at bedside. All the questions answered. Thank you and we will follow with you. Crow Stahl MD
--- NOTE | 2018-01-30 16:02 | CP.PCM.PN ---
Subjective - Date & Time of Evaluation Date of Evaluation: 01/30/18 Time of Evaluation: 11:10 - Subjective Subjective: Patient is feeling better, no more cough, improved breathing, no fevers. Objective - Vital Signs/Intake and Output Vital Signs (last 24 hours): Temp Pulse Resp BP Pulse Ox 98 F 71 20 108/65 96 01/30/18 08:17 01/30/18 08:17 01/30/18 08:17 01/30/18 08:17 01/30/18 08:17 Intake and Output: 01/30/18 01/30/18 06:59 18:59 Intake Total 180 Balance 180 - Medications Medications: Current Medications Acetaminophen (Tylenol 325mg Tab) 650 mg PO Q6H PRN PRN Reason: Fever >100.4 F Last Admin: 01/29/18 05:02 Dose: 650 mg Albuterol/Ipratropium (Duoneb 3 Mg/0.5 Mg (3 Ml) Ud) 3 ml IH Q2H PRN PRN Reason: Shortness of Breath Last Admin: 01/28/18 12:39 Dose: 3 ml Albuterol/Ipratropium (Duoneb 3 Mg/0.5 Mg (3 Ml) Ud) 3 ml IH [id number] [facility] Last Admin: 01/30/18 04:05 Dose: 3 ml Alprazolam (Xanax) 0.25 mg PO TID PRN; Protocol PRN Reason: Anxiety Stop: 02/03/18 14:01 Last Admin: 01/29/18 21:46 Dose: 0.25 mg Aspirin (Ecotrin) 81 mg PO DAILY [facility] Last Admin: 01/29/18 09:01 Dose: 81 mg Doxycycline Hyclate (Doryx) 100 mg PO Q12 [facility] Last Admin: 01/29/18 21:46 Dose: 100 mg Enoxaparin Sodium (Lovenox) 40 mg SC DAILY [facility] PRN Reason: Protocol Last Admin: 01/29/18 09:01 Dose: 40 mg Furosemide (Lasix) 40 mg IV DAILY [facility] Last Admin: 01/29/18 09:02 Dose: 40 mg Guaifenesin (Robitussin) 200 mg PO Q4H PRN PRN Reason: Cough and congestion Last Admin: 01/26/18 02:38 Dose: 200 mg Vancomycin HCl (Vancomycin 1gm) 1 gm in 250 mls @ 167 mls/hr IVPB Q12H [facility] PRN Reason: Protocol Last Admin: 01/30/18 01:10 Dose: 167 mls/hr Cefepime HCl (Maxipime 1gm) 1 gm in 100 mls @ 100 mls/hr IVPB Q12 [facility] PRN Reason: Protocol Last Admin: 01/29/18 21:46 Dose: 100 mls/hr Insulin Human Regular (Humulin R Med) 0 units SC ACHS [facility] PRN Reason: Protocol Last Admin: 01/30/18 08:09 Dose: Not Given Lactic Acid (Lac-Hydrin 12% Cream (140 G)) 0 ea TOP BID [facility] Last Admin: 01/29/18 18:43 Dose: Not Given Ondansetron HCl (Zofran Inj) 4 mg IVP Q6H PRN PRN Reason: Nausea/Vomiting Pantoprazole Sodium (Protonix Ec Tab) 40 mg PO 0630 [facility] Last Admin: 01/30/18 06:34 Dose: 40 mg Potassium Chloride (K-Dur 20 Meq Er Tab) 20 meq PO BRK [facility] Last Admin: 01/29/18 09:01 Dose: 20 meq Sitagliptin Phosphate (Januvia) 100 mg PO DAILY [facility] Last Admin: 01/29/18 09:01 Dose: 100 mg - Labs Labs: 01/29/18 06:30 01/29/18 06:30 PT 12.0 SECONDS (9.4-12.5) 01/25/18 10:40 INR 1.04 (0.93-1.08) 01/25/18 10:40 APTT 25.1 Seconds (25.1-36.5) 01/25/18 10:40 - Constitutional Appears: Non-toxic, Chronically Ill - Head Exam Head Exam: NORMAL INSPECTION - Neck Exam Neck Exam: absent: Meningismus - Respiratory Exam Respiratory Exam: Decreased Breath Sounds, Rales (improved) - Cardiovascular Exam Cardiovascular Exam: +S1, +S2 - GI/Abdominal Exam GI & Abdominal Exam: Soft. absent: Tenderness Assessment and Plan - Assessment and Plan (Free Text) Plan: Assessment severe sepsis due to multifocal pneumonia, clinically improving rectal cancer DM HTN CAD chronic back pain Plan Continue Vancomycin, Cefepime and Doxycycline day 5; urine Legionella Ag is negative; cultures are negative; should complete 5-7 days of therapy; repeat PCT has normalized - can switched to PO Doxycycline and PO Vantin to complete therapy when ready for discharge will continue to monitor clinically while the patient is in the hospital
--- NOTE | 2018-01-30 17:19 | PN ---
DATE: 01/30/2018 SUBJECTIVE: The patient is a 67-year-old, seems to be doing better. Less cough. Still has shortness of breath on walking. PHYSICAL EXAMINATION: VITAL SIGNS: He is afebrile, pulse 71, respirations 20, blood pressure 147/97. LUNGS: Bilateral fair airflow better than when he was admitted. Few expiratory rhonchi. HEART: S1 and S2 audible. ABDOMEN: Soft, obese, nontender. No rebound. No guarding. NEUROLOGIC: He is awake, alert, oriented, communicative, ambulatory. LABORATORY DATA: Blood sugar is 137. Blood cultures and urine cultures are negative. ASSESSMENT: 1. Chronic obstructive pulmonary disease exacerbation. 2. Multilobar pneumonia. 3. Hypertension. 4. Non-insulin dependent diabetes. 5. Mild congestive heart failure. 6. Morbid obesity. 7. Status post pacemaker placement because of sick sinus syndrome. 8. Mild pulmonary hypertension. PLAN: We will continue patient on current antibiotics that include Maxipime, doxycycline. He is on nebulizer treatment. He is on low-dose diuretics. We will continue on potassium supplementation. We will follow up his electrolytes in a.m. and if patient remains stable, we will discuss with other hospice care sales consultant for discharge planning. Sundar Hartman MD
[2018-01-30] MEDS: MethylPREDNISolone 40 mg Vial IVP SCH (21:17)
[2018-01-31] MEDS: Albuterol-Ipratrop 3 mg / 0.5 (3 ml) UD IH SCH ×3 (01:15→13:39)
[2018-01-31] MEDS: Pantoprazole 40 mg EC Tab PO SCH (06:11)
[2018-01-31 07:25] LABS: BASO # 0.01 K/mm3 (0.0-2.0); BASO % 0.1 % (0.0-3.0); EOS % 0.2 % (1.5-5.0); GRAN # 7.87 (1.4-6.5); HEMOGLOBIN 15.4 g/dL (14.0-18.0); LYMPH # 0.7 (1.2-3.4); LYMPH % 7.9 % (22.0-35.0); MEAN CELL VOLUME 89.1 fl (80.0-105.0); MEAN CORPUSCULAR HGB CONC 34.8 g/dl (31.0-37.0); MEAN PLATELET VOLUME 8.8 fl (7.0-11.0); MONO # 0.5 (0.1-0.6); MONO % 5.8 % (1.0-6.0); RBC 4.96 10^6/uL (3.5-6.1); RED CELL DISTRIBUTION WIDTH 14.2 % (11.5-14.5); WHITE BLOOD COUNT 9.2 10^3/ul (4.5-11.0)
--- NOTE | 2018-01-31 07:30 | CP.PCM.PN ---
Subjective - Date & Time of Evaluation Date of Evaluation: 01/31/18 Time of Evaluation: 06:25 - Subjective Subjective: Awake, sitting on chair, feels good, denies shortness of breath, denies chest pain Reason for consultation and follow up: Cardiac evaluation, shortness of breath, pneumonia, history of permanent pacemaker, hypertension Seen and examined by me and Dr. Brown Objective - Vital Signs/Intake and Output Vital Signs (last 24 hours): Temp Pulse Resp BP Pulse Ox 98.7 F 62 20 137/51 L 94 L 01/30/18 23:13 01/30/18 23:13 01/30/18 23:13 01/30/18 23:13 01/30/18 23:13 Intake and Output: 01/31/18 01/31/18 06:59 18:59 Intake Total 220 Output Total 1 Balance 219 - Medications Medications: Current Medications Acetaminophen (Tylenol 325mg Tab) 650 mg PO Q6H PRN PRN Reason: Fever >100.4 F Last Admin: 01/30/18 21:20 Dose: 650 mg Albuterol/Ipratropium (Duoneb 3 Mg/0.5 Mg (3 Ml) Ud) 3 ml IH Q2H PRN PRN Reason: Shortness of Breath Last Admin: 01/28/18 12:39 Dose: 3 ml Albuterol/Ipratropium (Duoneb 3 Mg/0.5 Mg (3 Ml) Ud) 3 ml IH [id number] [facility] Last Admin: 01/31/18 01:15 Dose: 3 ml Alprazolam (Xanax) 0.25 mg PO TID PRN; Protocol PRN Reason: Anxiety Stop: 02/03/18 14:01 Last Admin: 01/30/18 21:19 Dose: 0.25 mg Aspirin (Ecotrin) 81 mg PO DAILY [facility] Last Admin: 01/30/18 10:45 Dose: 81 mg Colchicine (Colocrys) 0.6 mg PO BID [facility] Last Admin: 01/30/18 22:08 Dose: 0.6 mg Doxycycline Hyclate (Doryx) 100 mg PO Q12 [facility] Last Admin: 01/30/18 21:17 Dose: 100 mg Enoxaparin Sodium (Lovenox) 40 mg SC DAILY [facility] PRN Reason: Protocol Last Admin: 01/30/18 10:46 Dose: 40 mg Furosemide (Lasix) 40 mg IV DAILY [facility] Last Admin: 01/30/18 10:44 Dose: 40 mg Guaifenesin (Robitussin) 200 mg PO Q4H PRN PRN Reason: Cough and congestion Last Admin: 01/26/18 02:38 Dose: 200 mg Insulin Human Regular (Humulin R Med) 0 units SC ACHS [facility] PRN Reason: Protocol Last Admin: 01/30/18 22:09 Dose: Not Given Lactic Acid (Lac-Hydrin 12% Cream (140 G)) 0 ea TOP BID [facility] Last Admin: 01/30/18 17:10 Dose: Not Given Methylprednisolone (Solu-Medrol) 40 mg IVP Q12 [facility] Last Admin: 01/30/18 21:17 Dose: 40 mg Ondansetron HCl (Zofran Inj) 4 mg IVP Q6H PRN PRN Reason: Nausea/Vomiting Pantoprazole Sodium (Protonix Ec Tab) 40 mg PO 0630 [facility] Last Admin: 01/31/18 06:11 Dose: 40 mg Potassium Chloride (K-Dur 20 Meq Er Tab) 20 meq PO BRK [facility] Last Admin: 01/30/18 10:45 Dose: 20 meq Sitagliptin Phosphate (Januvia) 100 mg PO DAILY [facility] Last Admin: 01/30/18 10:45 Dose: 100 mg - Labs Labs: 01/31/18 07:00 01/29/18 06:30 PT 12.0 SECONDS (9.4-12.5) 01/25/18 10:40 INR 1.04 (0.93-1.08) 01/25/18 10:40 APTT 25.1 Seconds (25.1-36.5) 01/25/18 10:40 - Constitutional Appears: No Acute Distress - ENT Exam ENT Exam: Mucous Membranes Moist - Respiratory Exam Respiratory Exam: Decreased Breath Sounds, NORMAL BREATHING PATTERN - Cardiovascular Exam Cardiovascular Exam: +S1, +S2 - GI/Abdominal Exam GI & Abdominal Exam: Soft, Normal Bowel Sounds - Extremities Exam Extremities Exam: Normal Capillary Refill Additional comments: gout left foot - Neurological Exam Neurological Exam: Alert, Awake, Oriented x3 - Psychiatric Exam Psychiatric exam: Depressed Additional comments: grieving for his who few weeks ago - Skin Skin Exam: Intact, Normal Color, Warm Assessment and Plan - Assessment and Plan (Free Text) Assessment: A 67 year old male morbidly obese who was came in to the ER due to shortness of breath and dry cough. history of hypertension, CAD, colorectal cancer,colostomy reversal, pacemaker "placed due to bradycardia," and recent admission on for bilateral pneumonia, Plan: Feeling much better Denies shortness of breath or chest pain Ambulatory Depresss due to passing few weeks ago Refer to social service to provide info about EAP in the community Has gout pain last night, taking allupurinol at home. Colchicine was given last night and daily dose. On ASA 81 mg daily, Lasix 40 mg daily, Lovenox 40 mg daily Continue current medications Continue current treatment Will follow up Plan and treatment discussed with Dr. Brown
[2018-01-31 07:35] VITALS: PULSE 60; RESP 18
[2018-01-31 07:42] LABS: ALB/GLOB RATIO 1.2 (1.1-1.8); ALBUMIN 4.6 g/dL (3.0-4.8); ALT/SGPT 44 U/L (7-56); AST/SGOT 44 U/L (17-59); BLOOD UREA NITROGEN 24 mg/dL (7-21); CALCIUM 9.8 mg/dL (8.4-10.5); GFR AFRICAN-AMERICAN > 60; GFR NON-AFRICAN AMERICAN > 60
[2018-01-31] MEDS: Potassium Chloride 20 mEq ER Tab PO SCH (08:15)
[2018-01-31] MEDS: Insulin Reg-MEDIUM-Coverage SC SCH ×3 (08:16→16:34)
[2018-01-31] MEDS: Enoxaparin 40 mg Syringe SC SCH (10:13)
[2018-01-31] MEDS: MethylPREDNISolone 40 mg Vial IVP SCH (10:14)
[2018-01-31] MEDS: Ammonium Lactate 12% Cream (140 g) TOP SCH (10:15)
--- NOTE | 2018-01-31 13:18 | CP.PCM.PN ---
Subjective - Date & Time of Evaluation Date of Evaluation: 01/31/18 Time of Evaluation: 11:15 - Subjective Subjective: Patient is feeling much better, no fevers, not in distress, no shortness of breath at rest, no cough, no diarrhea. Objective - Vital Signs/Intake and Output Vital Signs (last 24 hours): Temp Pulse Resp BP Pulse Ox 97.5 F L 60 18 103/53 L 99 01/31/18 06:00 01/31/18 06:00 01/31/18 06:00 01/31/18 06:00 01/31/18 06:00 Intake and Output: 01/31/18 01/31/18 06:59 18:59 Intake Total 220 Output Total 1 Balance 219 - Medications Medications: Current Medications Acetaminophen (Tylenol 325mg Tab) 650 mg PO Q6H PRN PRN Reason: Fever >100.4 F Last Admin: 01/30/18 21:20 Dose: 650 mg Albuterol/Ipratropium (Duoneb 3 Mg/0.5 Mg (3 Ml) Ud) 3 ml IH Q2H PRN PRN Reason: Shortness of Breath Last Admin: 01/28/18 12:39 Dose: 3 ml Albuterol/Ipratropium (Duoneb 3 Mg/0.5 Mg (3 Ml) Ud) 3 ml IH [id number] [facility] Last Admin: 01/31/18 07:27 Dose: 3 ml Alprazolam (Xanax) 0.25 mg PO TID PRN; Protocol PRN Reason: Anxiety Stop: 02/03/18 14:01 Last Admin: 01/30/18 21:19 Dose: 0.25 mg Aspirin (Ecotrin) 81 mg PO DAILY [facility] Last Admin: 01/30/18 10:45 Dose: 81 mg Colchicine (Colocrys) 0.6 mg PO BID [facility] Last Admin: 01/30/18 22:08 Dose: 0.6 mg Doxycycline Hyclate (Doryx) 100 mg PO Q12 [facility] Last Admin: 01/30/18 21:17 Dose: 100 mg Enoxaparin Sodium (Lovenox) 40 mg SC DAILY [facility] PRN Reason: Protocol Last Admin: 01/30/18 10:46 Dose: 40 mg Furosemide (Lasix) 40 mg IV DAILY [facility] Last Admin: 01/30/18 10:44 Dose: 40 mg Guaifenesin (Robitussin) 200 mg PO Q4H PRN PRN Reason: Cough and congestion Last Admin: 01/26/18 02:38 Dose: 200 mg Insulin Human Regular (Humulin R Med) 0 units SC ACHS [facility] PRN Reason: Protocol Last Admin: 01/31/18 08:16 Dose: 1 units Lactic Acid (Lac-Hydrin 12% Cream (140 G)) 0 ea TOP BID [facility] Last Admin: 01/30/18 17:10 Dose: Not Given Methylprednisolone (Solu-Medrol) 40 mg IVP Q12 [facility] Last Admin: 01/30/18 21:17 Dose: 40 mg Ondansetron HCl (Zofran Inj) 4 mg IVP Q6H PRN PRN Reason: Nausea/Vomiting Pantoprazole Sodium (Protonix Ec Tab) 40 mg PO 0630 [facility] Last Admin: 01/31/18 06:11 Dose: 40 mg Potassium Chloride (K-Dur 20 Meq Er Tab) 20 meq PO BRK [facility] Last Admin: 01/31/18 08:15 Dose: 20 meq Sitagliptin Phosphate (Januvia) 100 mg PO DAILY [facility] Last Admin: 01/30/18 10:45 Dose: 100 mg - Labs Labs: 01/31/18 07:00 01/31/18 07:00 PT 12.0 SECONDS (9.4-12.5) 01/25/18 10:40 INR 1.04 (0.93-1.08) 01/25/18 10:40 APTT 25.1 Seconds (25.1-36.5) 01/25/18 10:40 - Constitutional Appears: Non-toxic - Head Exam Head Exam: NORMAL INSPECTION - Neck Exam Neck Exam: absent: Meningismus - Respiratory Exam Respiratory Exam: Decreased Breath Sounds. absent: Rales - Cardiovascular Exam Cardiovascular Exam: +S1, +S2 - GI/Abdominal Exam GI & Abdominal Exam: Soft. absent: Tenderness Assessment and Plan - Assessment and Plan (Free Text) Plan: Assessment severe sepsis due to multifocal pneumonia, clinically improving rectal cancer DM HTN CAD chronic back pain Plan on Vancomycin, Cefepime and Doxycycline day 6; urine Legionella Ag is negative; cultures are negative; should complete 5-7 days of therapy; repeat PCT has normalized - can switched to PO Doxycycline and PO Vantin to complete therapy when ready for discharge (ie. 2 more days including today) patient should follow up with Pulmonary to undergo pulmonary function tests
--- NOTE | 2018-01-31 14:32 | DS ---
HISTORY OF PRESENT ILLNESS: The patient is a 67-year-old, seen and examined. The patient was admitted with cough, congestion, shortness of breath. He has been sick for almost a week, came to Emergency Room, was found to have multifocal pneumonia, has been on IV antibiotic and nebulizer treatment, feels a lot better. Less shortness of breath, had gouty attack last night, was given colchicine and steroid, seems to be doing well with that. PHYSICAL EXAMINATION: GENERAL: Today, he states he is depressed since he lost his . Otherwise, his breathing is better now. He states he thinks he is ready to go home. VITAL SIGNS: He is afebrile, pulse 60, respirations 18, blood pressure 114/83. LUNGS: Bilateral fair airflow. No rhonchi or crackle. HEART: S1 and S2 audible. ABDOMEN: Soft, obese, nontender. No rebound, no guarding. NEUROLOGIC: He is awake, alert, oriented, communicative. LABORATORY DATA: WBC is 9.2, hemoglobin 15, hematocrit 44, platelets 221. Chemistry: Sodium 145, potassium 5.3, chloride 105, CO2 26, BUN 24, creatinine 1, blood sugar of 146. ASSESSMENT: 1. Multilobar pneumonia. 2. History of chronic obstructive pulmonary disease. 3. Posttraumatic syndrome because of recent loss of his almost a month ago. 4. Anxiety disorder. The patient is already on Zoloft. 5. Vwv-jdnnpbs-pvpgybmfl diabetes. 6. Acute gouty arthritis. PLAN: The patient is being discharged home on doxycycline 100 twice a day and Vantin 100 twice a day for five more days. He was given a tapering dose of steroids and will be on Lasix 20 mg daily. I will see him in office in a week. Sundar Hartman MD
--- NOTE | 2018-01-31 15:18 | CP.PCM.CON ---
History of Present Illness - History of Present Illness History of Present Illness: The patient is a 67-year-old recently white male (several weeks ago) who was admitted in a state of pulmonary distress, found to have multilobular pneumonia but also observed to be grieving over the loss of his . Upon coming to the hospital he had already been maintained on Zoloft for many years, this having been started by a psychiatrist in [place] many years ago after he had been referred by his treating psychologist who was helping him deal with issues of depression surrounding his then separation from his now . This appears to be his only mental health involvement up until this present time. The patient is a [place] of the [facility]. He has lived in several places including [place]. 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 The marriage was not without conflict, relating to relationships including that of a relationship that the patient is a daughter from his first marriage had with that woman, as well as relationships that this woman had with her 2 children from a previous marriage. He described the marriage as one in which they would often go at loggerheads with one another but loving one another. They at one time for approximately 4 years. Marital counseling was involved at that time. Despite the conflict they reportedly loved one another. The patient is also conflicted over the realization that his who was Baptism, and he giving her a proper Baptism barrio, requires also that he, having purchased a joint plot, being buried to that same site. He however is Ep[employer]alian. Plus he is caught between fealty to his nondenominational and to his 's family and to his . He also seems to have issues with his daughter who he is very fond of, has been very helpful throughout, but who herself is Dr. Tran; as his first also was Ernst. The patient has also had the issues relating to his health. He has been treated for gastroenterologic tumor, underwent a course of radiation, chemotherapy and surgery. He feels about that this strict regimen, that ended several years ago, at [facility], has impaired his cognition. The patient denied a familial psychiatric or substance abuse history and denied his substance abuse history in himself When seen presently the patient was alert, oriented, was able to express his feelings A, is aware that he is experiencing grief, loss, conflict, guilt but he is not suicidal homicidal or psychotic. Rather he can be looked upon as undergoing a bereavement process and other unresolved issues of guilt. He can remain on the Zoloft that he was admitted on I have referred him to a local psychotherapist, when G US as 7 given the patient her number so as to help him deal in a psychotherapeutic relationship, with unresolved conflictual issues and that he carries with him and that have become exacerbated by his 's recent . Review of Systems - Constitutional Constitutional: As Per HPI - EENT Eyes: As Per HPI Ears: As Per HPI Nose/Mouth/Throat: As Per HPI - Cardiovascular Cardiovascular: As Per HPI - Respiratory Respiratory: As Per HPI - Gastrointestinal Gastrointestinal: As Per HPI - Genitourinary Genitourinary: As Per HPI - Reproductive: Male Reproductive:Male: Impotence - Musculoskeletal Musculoskeletal: As Per HPI - Integumentary Integumentary: As Per HPI - Neurological Neurological: As Per HPI - Psychiatric Psychiatric: Depression, Mood Swings - Endocrine Endocrine: As Per HPI - Hematologic/Lymphatic Hematologic: As Per HPI Past Patient History - Infectious Disease Hx of Infectious Diseases: None - Past Social History Smoking Status: Former Smoker - CARDIAC Hx Cardiac Disorders: Yes (cad) Hx Hypertension: Yes - PULMONARY Hx Respiratory Disorders: Yes Hx Asthma: Yes Hx Pneumonia: Yes (10/15/17 b/l) - NEUROLOGICAL Hx Dizziness: Yes - HEENT Hx HEENT Problems: Yes Hx Cataracts: Yes (b/l sx) - RENAL Hx Chronic Kidney Disease: Yes - ENDOCRINE/METABOLIC Hx Diabetes Mellitus Type 2: Yes - HEMATOLOGICAL/ONCOLOGICAL Hx Cancer: Yes (colon ca dx 02/2014) Hx Chemotherapy: Yes (and radiation) Other/Comment: dx with colon ca in 02/2014 had chemo and radiation then colostomy , colostomy reversal 2015, had inguinal hernia repair in 2015 at [facility] caused by colostomy reversal sx - INTEGUMENTARY Other/Comment: callus to left ft bunyon 0.5cm round c/o pain radiates to left great toe, dry skin both feet, face flushed, healed abd surgical scars, scratch holloway to right upper abd and left lower leg - MUSCULOSKELETAL/RHEUMATOLOGICAL Hx Falls: No - GASTROINTESTINAL Hx Gastrointestinal Disorders: Yes (obese) Hx Colostomy: Yes (and reversal due to colon ca) Other/Comment: frequent formed bm's 10-12 a day ever since colostomy reversal, colonoscopy 08/29/16 dx status post rectal resection and hemorrhoids - GENITOURINARY/GYNECOLOGICAL Hx Genitourinary Disorders: No - PSYCHIATRIC Hx Substance Use: No - SURGICAL HISTORY Other/Comment: INGUINAL HERNIA REPAIR 2015,COLOSTOMY REVERSED 2015,PACEMAKER 04/26, allograft r foot sx - ANESTHESIA Hx Anesthesia Reactions: No Hx Malignant Hyperthermia: No Meds Allergies/Adverse Reactions: Allergies Allergy/AdvReac Type Severity Reaction Status Date / Time No Known Allergies Allergy Verified 01/25/18 10:18 - Medications Medications: Current Medications Acetaminophen (Tylenol 325mg Tab) 650 mg PO Q6H PRN PRN Reason: Fever >100.4 F Last Admin: 01/30/18 21:20 Dose: 650 mg Albuterol/Ipratropium (Duoneb 3 Mg/0.5 Mg (3 Ml) Ud) 3 ml IH Q2H PRN PRN Reason: Shortness of Breath Last Admin: 01/28/18 12:39 Dose: 3 ml Albuterol/Ipratropium (Duoneb 3 Mg/0.5 Mg (3 Ml) Ud) 3 ml IH [id number] [facility] Last Admin: 01/31/18 13:39 Dose: Not Given Alprazolam (Xanax) 0.25 mg PO TID PRN; Protocol PRN Reason: Anxiety Stop: 02/03/18 14:01 Last Admin: 01/30/18 21:19 Dose: 0.25 mg Aspirin (Ecotrin) 81 mg PO DAILY [facility] Last Admin: 01/31/18 10:14 Dose: 81 mg Colchicine (Colocrys) 0.6 mg PO BID [facility] Last Admin: 01/31/18 10:14 Dose: 0.6 mg Doxycycline Hyclate (Doryx) 100 mg PO Q12 [facility] Last Admin: 01/31/18 10:14 Dose: 100 mg Enoxaparin Sodium (Lovenox) 40 mg SC DAILY [facility] PRN Reason: Protocol Last Admin: 01/31/18 10:13 Dose: 40 mg Furosemide (Lasix) 40 mg IV DAILY [facility] Last Admin: 01/31/18 10:13 Dose: 40 mg Guaifenesin (Robitussin) 200 mg PO Q4H PRN PRN Reason: Cough and congestion Last Admin: 01/26/18 02:38 Dose: 200 mg Insulin Human Regular (Humulin R Med) 0 units SC ACHS [facility] PRN Reason: Protocol Last Admin: 01/31/18 08:16 Dose: 1 units Lactic Acid (Lac-Hydrin 12% Cream (140 G)) 0 ea TOP BID [facility] Last Admin: 01/31/18 10:15 Dose: 1 gm Methylprednisolone (Solu-Medrol) 40 mg IVP Q12 [facility] Last Admin: 01/31/18 10:14 Dose: 40 mg Ondansetron HCl (Zofran Inj) 4 mg IVP Q6H PRN PRN Reason: Nausea/Vomiting Pantoprazole Sodium (Protonix Ec Tab) 40 mg PO 0630 [facility] Last Admin: 01/31/18 06:11 Dose: 40 mg Potassium Chloride (K-Dur 20 Meq Er Tab) 20 meq PO BRK [facility] Last Admin: 01/31/18 08:15 Dose: 20 meq Sitagliptin Phosphate (Januvia) 100 mg PO DAILY [facility] Last Admin: 01/31/18 10:14 Dose: 100 mg Results - Vital Signs Recent Vital Signs: Last Vital Signs Temp 97.5 F L 01/31/18 06:00 Pulse 60 01/31/18 06:00 Resp 18 01/31/18 06:00 BP 114/83 01/31/18 10:13 Pulse Ox 99 01/31/18 06:00 - Labs Result Diagrams: 01/31/18 07:00 01/31/18 07:00 Labs: Laboratory Results - last 24 hr 01/30/18 01/30/18 01/30/18 11:02 16:22 21:08 WBC RBC Hgb Hct MCV MCH MCHC RDW Plt Count MPV Gran % Lymph % (Auto) [place] % (Auto) Eos % (Auto) Baso % (Auto) Gran # Lymph # (Auto) [place] # (Auto) Eos # (Auto) Baso # (Auto) Sodium Potassium Chloride Carbon Dioxide Anion Gap BUN Creatinine Est GFR ( Amer) Est GFR (Non-Af Amer) POC Glucose (mg/dL) 114 H 111 H 119 H Random Glucose Calcium Total Bilirubin AST ALT Alkaline Phosphatase Total Protein Albumin Globulin Albumin/Globulin Ratio 01/31/18 01/31/18 01/31/18 06:42 07:00 07:00 WBC 9.2 RBC 4.96 Hgb 15.4 Hct 44.2 MCV 89.1 MCH 31.0 MCHC 34.8 RDW 14.2 Plt Count 221 MPV 8.8 Gran % 86.0 H Lymph % (Auto) 7.9 L Nicollet % (Auto) 5.8 Eos % (Auto) 0.2 L Baso % (Auto) 0.1 Gran # 7.87 H Lymph # (Auto) 0.7 L Nicol[place] # (Auto) 0.5 Eos # (Auto) 0.0 Baso # (Auto) 0.01 Sodium 145 Potassium 5.3 H Chloride 105 Carbon Dioxide 26 Anion Gap 20 BUN 24 H Creatinine 1.0 Est GFR ( Amer) > 60 Est GFR (Non-Af Amer) > 60 POC Glucose (mg/dL) 161 H Random Glucose 146 H Calcium 9.8 Total Bilirubin 0.6 AST 44 ALT 44 Alkaline Phosphatase 83 Total Protein 8.4 H Albumin 4.6 Globulin 3.8 Albumin/Globulin Ratio 1.2 01/31/18 11:18 WBC RBC Hgb Hct MCV MCH MCHC RDW Plt Count MPV Gran % Lymph % (Auto) Nicollet % (Auto) Eos % (Auto) Baso % (Auto) Gran # Lymph # (Auto) Nicollet # (Auto) Eos # (Auto) Baso # (Auto) Sodium Potassium Chloride Carbon Dioxide Anion Gap BUN Creatinine Est GFR ( Amer) Est GFR (Non-Af Amer) POC Glucose (mg/dL) 66 Random Glucose Calcium Total Bilirubin AST ALT Alkaline Phosphatase Total Protein Albumin Globulin Albumin/Globulin Ratio - EKG Data EKG Interpreted by: ER Physician Assessment & Plan - Assessment and Plan (Free Text) Assessment: Bereavement; adjustment disorder with features of depression, anxiety and some behavioral changes Plan: I referred to a local health care social worker for ongoing psycho therapy of a supportive nature
[2018-01-31 15:29] VITALS: BP 137/91; TEMP 98; O2SAT 94
--- NOTE | 2018-01-31 22:25 | PN ---
DATE: 01/31/2018 PULMONARY PROGRESS NOTE REFERRING PHYSICIAN: Sundar Hartman MD SUBJECTIVE: Patient is sitting side of the bed. Daughter is bedside. Night was unremarkable. Cough is better. No significant shortness of breath. No nausea, vomiting, or diarrhea. Complaining about gouty pain in the toe. OBJECTIVE: GENERAL: In no acute distress. VITAL SIGNS: Temperature is 98, heart rate , respiratory rate is 18, blood pressure 137/91, pulse ox 94% on room air. HEENT: Moist mucous membranes. Crowded airway. NECK: Supple. No JVD. LUNGS: Fair airflow with rhonchi. HEART: S1 and S2. ABDOMEN: Soft, nontender, no organomegaly. EXTREMITIES: Left big toe is tender to touch and warm to touch. NEUROLOGIC: Awake, alert, and follows simple command. MEDICATIONS: He is on colchicine 0.6 mg twice a day, doxycycline 100 mg twice a day, albuterol/Atrovent nebulizer every 2 hours p.r.n. and every 6 hours [id number], Ecotrin 81 mg daily, insulin coverage, Januvia 100 mg daily, potassium 10 mEq daily, Lasix 40 mg IV daily, Lovenox 40 mg subcu daily, Protonix 40 mg daily, Robitussin 200 mg every 4 hours p.r.n., Solu-Medrol 40 mg every 12 hours, Tylenol p.r.n., Xanax 0.25 mg two times a day p.r.n., Zofran p.r.n. basis. LABORATORY DATA: Shows hemoglobin 15.4, hematocrit 44.2, WBC 9.2, and platelet count is 221. Sodium 145, potassium 5.3, chloride 105, bicarbonate 26. BUN 24, creatinine 1. Glucose 146. Calcium 9.8. AST 44, ALT 44, alk phos is 83. Albumin is 4.6. Microbiology: Blood culture and sputum culture, there is no growth. IMPRESSION AND PLAN: Chronic obstructive lung disease, may have sleep apnea syndrome, normal ejection fraction, heart failure, hypertension, coronary artery disease, cardiac arrhythmia requiring pacemaker, adjustment disorder, gouty arthritis. Spoke to the patient and daughter at bedside. All the questions answered. Continue bronchodilator, antibiotics, diuretics. Gastric and DVT prophylaxis. On antibiotics. Will be seen by Psychiatry. Started on colchicine. Fall precaution. Thank you and we will follow with you. Crow Stahl MD
== END 2018-01-31 18:03 | disposition home or self-care (01) | DRG 871 ==
LOC: ED 10:06 → ERH 13:19 → 2RNO 16:09 → 5RSO 01-27 15:37
PROVIDERS: ADMIT Internal Medicine; ATTEND Internal Medicine
PROC: 5A09357 Assistance with Respiratory Ventilation, Less than 24 Consecutive Hours, Continuous Positive Airway Pressure (ICD-10-PCS; principal; 2018-01-29)
DX: A41.9 Sepsis, unspecified organism (principal); J18.9 Pneumonia, unspecified organism; I50.21 Acute systolic (congestive) heart failure; J44.0 Chronic obstructive pulmonary disease with (acute) lower respiratory infection; I13.0 Hypertensive heart and chronic kidney disease with heart failure and stage 1 through stage 4 chronic kidney disease, or unspecified chronic kidney disease; I50.1 Left ventricular failure, unspecified; N17.9 Acute kidney failure, unspecified; J44.1 Chronic obstructive pulmonary disease with (acute) exacerbation; I42.9 Cardiomyopathy, unspecified; R65.20 Severe sepsis without septic shock; G47.33 Obstructive sleep apnea (adult) (pediatric); E11.40 Type 2 diabetes mellitus with diabetic neuropathy, unspecified; I25.10 Atherosclerotic heart disease of native coronary artery without angina pectoris; I49.5 Sick sinus syndrome; N18.9 Chronic kidney disease, unspecified; E66.01 Morbid (severe) obesity due to excess calories; I08.1 Rheumatic disorders of both mitral and tricuspid valves; G89.29 Other chronic pain; E78.5 Hyperlipidemia, unspecified; M54.9 Dorsalgia, unspecified; I27.20 Pulmonary hypertension, unspecified; M10.072 Idiopathic gout, left ankle and foot; M19.90 Unspecified osteoarthritis, unspecified site; F51.02 Adjustment insomnia; F40.240 Claustrophobia; M48.00 Spinal stenosis, site unspecified; E11.22 Type 2 diabetes mellitus with diabetic chronic kidney disease; F43.23 Adjustment disorder with mixed anxiety and depressed mood; Z92.3 Personal history of irradiation; Z95.0 Presence of cardiac pacemaker; Z87.891 Personal history of nicotine dependence; Z63.4 Disappearance and death of family member; Z85.048 Personal history of other malignant neoplasm of rectum, rectosigmoid junction, and anus; Z79.84 Long term (current) use of oral hypoglycemic drugs; Z90.49 Acquired absence of other specified parts of digestive tract; Z68.36 Body mass index [BMI] 36.0-36.9, adult; Z92.21 Personal history of antineoplastic chemotherapy

== ENCOUNTER 2018-07-09 16:44 | Emergency (ER) | payer MEDICARE, OTHER ==
[2018-07-09 16:46] VITALS: BMI 36.6
[2018-07-09 16:56] VITALS: TEMP 97.8
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
[2018-07-09 18:30] LABS: ALB/GLOB RATIO 1.1 (1.1-1.8); ALBUMIN 3.9 g/dL (3.0-4.8); ALT/SGPT 55 U/L (7-56); AST/SGOT 49 U/L (17-59); BLOOD UREA NITROGEN 30 mg/dL (7-21); CALCIUM 8.9 mg/dL (8.4-10.5); GFR NON-AFRICAN AMERICAN > 60; LIPASE 254 U/L (23-300)
[2018-07-09 18:56] LABS: INR 0.96; PARTIAL THROMBOPLASTIN TIME 30.3 Seconds (25.1-36.5); PROTHROMBIN TIME 10.9 SECONDS (9.4-12.5); URINE BILIRUBIN NEGATIVE (NEGATIVE); URINE BLOOD TRACE-INTACT (NEGATIVE); URINE GLUCOSE (UA) NEGATIVE (NEGATIVE); URINE LEUKOCYTE ESTERASE NEGATIVE Leu/uL (NEGATIVE); URINE PROTEIN 100 mg/dL (<30 mg/dL); URINE UROBILINOGEN 0.2 E.U./dL (<1 E.U./dL)
[2018-07-09 18:58] LABS: BASO # 0.01 K/mm3 (0.0-2.0); BASO % 0.1 % (0.0-3.0); EOS # 0.5 (0.0-0.7); EOS % 4.5 % (1.5-5.0); GRAN # 7.14 (1.4-6.5); GRAN % 67.1 % (50.0-68.0); HEMOGLOBIN 16.1 g/dL (14.0-18.0); LYMPH # 2.2 (1.2-3.4); LYMPH % 20.3 % (22.0-35.0); MEAN CELL VOLUME 89.9 fl (80.0-105.0); MEAN CORPUSCULAR HEMOGLOBIN 30.7 pg (25.0-35.0); MEAN CORPUSCULAR HGB CONC 34.1 g/dl (31.0-37.0); MEAN PLATELET VOLUME 9.7 fl (7.0-11.0); MONO # 0.9 (0.1-0.6); RBC 5.25 10^6/uL (3.5-6.1); RED CELL DISTRIBUTION WIDTH 13.7 % (11.5-14.5); WHITE BLOOD COUNT 10.6 10^3/ul (4.5-11.0)
[2018-07-09 19:03] LABS: URINE APPEARANCE CLEAR (CLEAR); URINE COLOR LIGHT YELLOW (YELLOW)
[2018-07-09] MEDS ORDERED: Morphine 4 mg/ml ISec IVP STA (19:08)
[2018-07-09 19:11] LABS: URINE EPITHELIAL CELLS 0 - 2 /hpf (0-5); URINE WBC 0 - 2 /hpf (0-6)
[2018-07-09 19:13] LABS: URINE BACTERIA SMALL (NEG)
[2018-07-09 19:35] VITALS: O2SAT 98
[2018-07-09 20:56] VITALS: BP 139/77; PULSE 75; RESP 16
--- NOTE | 2018-07-10 10:55 | CT ---
Date of service: 07/09/2018 PROCEDURE: CT Abdomen and Pelvis with contrast HISTORY: L sided abd pain COMPARISON: None. TECHNIQUE: Contrast dose: 146 cc of Omni 350 Radiation dose: Total exam DLP = 1184.53 mGy-cm. This CT exam was performed using one or more of the following dose reduction techniques: Automated exposure control, adjustment of the mA and/or kV according to patient size, and/or use of iterative reconstruction technique. FINDINGS: LOWER THORAX: Unremarkable. LIVER: Unremarkable. No gross lesion or ductal dilatation. Fatty infiltration of the liver GALLBLADDER AND BILE DUCTS: Unremarkable. PANCREAS: Unremarkable. No gross lesion or ductal dilatation. SPLEEN: Unremarkable. ADRENALS: Unremarkable. No mass. KIDNEYS AND URETERS: Unremarkable. No hydronephrosis. No solid mass. VASCULATURE: Unremarkable. No aortic aneurysm. BOWEL: Unremarkable. No obstruction. No gross mural thickening. APPENDIX: Normal appendix. PERITONEUM: Unremarkable. No free fluid. No free air. LYMPH NODES: Unremarkable. No enlarged lymph nodes. BLADDER: Unremarkable. REPRODUCTIVE: Unremarkable. BONES: No acute fracture. OTHER FINDINGS: The report concurs with the preliminary [facility] report IMPRESSION: No acute intra-abdominal findings
== END 2018-07-09 20:54 | disposition home or self-care (01) ==
LOC: ED 16:44
DX: S30.1XXA Contusion of abdominal wall, initial encounter (principal); V98.8XXA Other specified transport accidents, initial encounter; Y92.89 Other specified places as the place of occurrence of the external cause; E11.9 Type 2 diabetes mellitus without complications; Z85.038 Personal history of other malignant neoplasm of large intestine; Z93.3 Colostomy status; Z95.0 Presence of cardiac pacemaker
CPT/HCPCS: 74177; 80053; 81001; 83690; 83735; 85025; 85610; 85730; 96374; 96375; 99284; J2270; J2405; Q9967

== ENCOUNTER 2018-11-10 08:29 | Inpatient (IN) | payer MEDICARE, OTHER ==
[2018-11-10 08:29] VITALS: BMI 36.6
[2018-11-10] MEDS ORDERED: Albuterol-Ipratrop 3 mg / 0.5 (3 ml) UD IH STA (09:04)
--- NOTE | 2018-11-10 09:17 | ED PDOC ---
Arrival/HPI - History of Present Illness Narrative History of Present Illness (Text): 11/10/18 09:11 68M w/ PMH most significant for COPD not on home O2 c/o of productive cough + sob ongoing x4 days. Patient reports having sick contacts in his household and at work w/ similar symptoms. Patient reports he gets some shortness of breath w/ speaking and exertion associated with wheezing. Patient is also complaining of c hills w/o fevers and fatigue. PMH: Bradycardia s/p pacemaker, COPD, DM, HTN, Colorectal CA in remission PSH: Colectomy s/p reversal Social: 2ppd x37 years quit 20 years ago ALL: NKDA FamHx: No hx premature [place] Time/Duration: Prior to Arrival, < week Symptom Onset: Gradual Symptom Course: Worsening <Cosmo Gray - Last Filed: 11/10/18 11:50> <R[place] - Last Filed: 11/10/18 13:10> - General Chief Complaint: Shortness Of Breath Time Seen by Provider: 11/10/18 08:32 Past Medical History - Provider Review Nursing Documentation Reviewed: Yes - Infectious Disease Hx of Infectious Diseases: None - Cardiac Hx Cardiac Disorders: Yes (cad) Hx Pacemaker: Yes (04/26/[address] jain) - Pulmonary Hx Pneumonia: Yes (10/15/17 b/l) - Neurological Hx Dizziness: Yes - HEENT Hx Cataracts: Yes (b/l sx) - Renal Hx Renal Disorder: Yes - Endocrine/Metabolic Hx Diabetes Mellitus Type 2: Yes - Hematological/Oncological Hx Cancer: Yes (colon ca dx 02/2014) Other/Comment: dx with colon ca in 02/2014 had chemo and radiation then colostomy, colostomy reversal 2015, had inguinal hernia repair in 2016 at [facility] caused by colostomy reversal sx - Integumentary Other/Comment: callus to left ft bunyon 0.5cm round c/o pain radiates to left great toe, dry skin both feet, face flushed, healed abd surgical scars, scratch holloway to right upper abd and left lower leg - Musculoskeletal/Rheumatological Hx Musculoskeletal Disorders: Yes Hx Arthritis: Yes (hands) Other/Comment: tibia tendonitis pt denies - Gastrointestinal Hx Gastrointestinal Disorders: Yes (obese) Hx Colostomy: Yes (and reversal due to colon ca) Other/Comment: frequent formed bm's 10-12 a day ever since colostomy reversal, colonoscopy 08/29/16 dx status post rectal resection and hemorrhoids - Genitourinary/Gynecological Hx Genitourinary Disorders: No - Psychiatric Hx Anxiety: Yes Hx Substance Use: No Other/Comment: pt's around 4 weeks ago - Surgical History Other/Comment: INGUINAL HERNIA REPAIR 2015,COLOSTOMY REVERSED 2015,PACEMAKER 04/26/16, allograft r foot sx - Anesthesia Hx Anesthesia Reactions: No Hx Malignant Hyperthermia: No - Suicidal Assessment Feels Threatened In Home Enviroment: No <Cosmo Gray - Last Filed: 11/10/18 11:50> Family/Social History - Physician Review Nursing Documentation Reviewed: Yes Family/Social History: denies: CAD/[place] Smoking Status: Former Smoker Hx Alcohol Use: Yes Frequency of alcohol use: Socially Hx Substance Use: No <Cosmo Gray - Last Filed: 11/10/18 11:50> Allergies/Home Meds <Cosmo Gray - Last Filed: 11/10/18 11:50> <[place] - Last Filed: 11/10/18 13:10> Allergies/Adverse Reactions: Allergies No Known Allergies Allergy (Verified 07/09/18 16:56) Home Medications: Home Meds Medication Instructions Recorded Confirmed ALPRAZolam [Xanax] 0.25 mg PO HS PRN 01/26/18 01/26/18 Acetaminophen/Oxycodone Hydr 1 tab PO TID PRN 01/26/18 01/26/18 [Percocet 10/325 mg Tab] Allopurinol [Zyloprim] 100 mg PO DAILY 01/26/18 01/26/18 Colchicine [Colcrys] 0.5 mg PO 01/26/18 Ergocalciferol (Vitamin D2) 1 cap PO QWK 01/26/18 01/26/18 [Vitamin D2] Gabapentin [Neurontin] 600 mg PO BID 01/26/18 01/26/18 Glimepiride [amaRYL] 2 mg PO BID 01/26/18 01/26/18 Metformin HCl [Glucophage] 1,000 mg PO BID 01/26/18 01/26/18 Sertraline HCl [Zoloft] 100 mg PO DAILY 01/26/18 01/26/18 Tizanidine HCl [Zanaflex] 4 mg PO HS 01/26/18 01/26/18 Review of Systems - Physician Review All systems were reviewed & negative as marked: Yes - Review of Systems Constitutional: Fatigue, Other (Chills) Eyes: Normal ENT: Normal Respiratory: SOB, Cough, Sputum, Wheezing Cardiovascular: absent: Chest Pain, Palpitations Gastrointestinal: Normal Musculoskeletal: Normal Skin: Normal Neurological: Normal Endocrine: Normal Hemo/Lymphatic: Normal Psychiatric: Normal <Cosmo Gray - Last Filed: 11/10/18 11:50> Physical Exam Vital Signs Reviewed: Yes Vital Signs Temp Pulse Resp BP Pulse Ox 11/10/18 08:48 98.6 F 63 18 144/79 95 11/10/18 08:35 98.7 F 76 20 161/74 H 96 Temperature: Afebrile Blood Pressure: Hypertensive Pulse: Regular Respiratory Rate: Normal Appearance: Positive for: Well-Appearing, Non-Toxic, Comfortable Pain Distress: None Mental Status: Positive for: Alert and Oriented X 3 - Systems Exam Head: Present: Atraumatic, Normocephalic Pupils: Present: PERRL Extroacular Muscles: Present: EOMI Conjunctiva: Present: Normal Mouth: Present: Moist Mucous Membranes Neck: Present: Normal Range of Motion Respiratory/Chest: Present: Wheezes, Decreased Breath Sounds, Rales Cardiovascular: Present: Regular Rate and Rhythm, Normal S1, S2. No: Murmurs Abdomen: No: Tenderness, Distention, Peritoneal Signs Back: Present: Normal Inspection Upper Extremity: Present: Normal Inspection. No: Cyanosis, Edema Lower Extremity: Present: Normal Inspection. No: Edema Neurological: Present: GCS=15, CN II-XII Intact, Speech Normal Skin: Present: Warm, Dry, Normal Color. No: Rashes Psychiatric: Present: Alert, Oriented x 3, Normal Insight, Normal Concentration <Cosmo Gray - Last Filed: 11/10/18 11:50> Vital Signs Temp Pulse Resp BP Pulse Ox 11/10/18 12:00 66 18 162/82 H 96 11/10/18 10:28 64 18 138/74 95 11/10/18 08:48 98.6 F 63 18 144/79 95 11/10/18 08:40 18 95 11/10/18 08:35 98.7 F 76 20 161/74 H 96 <[place] - Last Filed: 11/10/18 13:10> Medical Decision Making ED Course and Treatment: 11/10/18 09:27 Impression COPD exacerbation most likely 2/2 URI - r/o PNA Satting 88% on RA Plan CBC/CMP CXR TROP EKG ABG URIC ACID RAPID FLU BNP O2 NC PRN Solumedrol 125 DUONEB Tylenol Progress Notes 11/10/18 11:06 CBC/CMP wnl CXR unremarkable for infiltrate or mediastinal widening Vascular congestion seen- as interpreted by me EKG - Ventricular paced rhythm - Paced at 63/min ABG wnl 11/10/18 11:19 Patient reevaluated and states he has minor improvement in his respiratory status, but reports a continued feeling of heaviness within chest. BNP added to orders. Shared decision making with patient who is agreeable to staying for observation. Call placed to Dr. Hartman(PCP). 11/10/18 11:50 Spoke w/ Dr Hartman who accepts patient to her service for COPD exacerbation Requests Dr. Jain cardio consult Requests Dr. Favio dowling consult - Lab Interpretations Lab Results: 11/10/18 09:13 11/10/18 09:13 Lab Results 11/10/18 10:42: pCO2 41, pO2 86.0, HCO3 25.4, ABG pH 7.40, ABG Total CO2 26.7, ABG O2 Saturation 98.4 H, ABG O2 Content 19.7, ABG Base Excess 0.5, ABG Hemoglobin 14.6, ABG Carboxyhemoglobin 1.9 H, POC ABG HHb (Measured) 1.6, ABG Methemoglobin 0.6, ABG O2 Capacity 20.0, Hgb O2 Saturation 95.9, FiO2 28.0 11/10/18 09:13: Sodium 135, Potassium 4.6, Chloride 100, Carbon Dioxide 26, Anion Gap 13, BUN 17, Creatinine 1.0, Est GFR ( Amer) > 60, Est GFR (Non- Af Amer) > 60, Random Glucose 170 H, Uric Acid 6.7, Calcium 9.3, Total Bilirubin 0.9, AST 51, ALT 36, Alkaline Phosphatase 78, Troponin I 0.02 D, Total Protein 7.8, Albumin 4.3, Globulin 3.5, Albumin/Globulin Ratio 1.2 11/10/18 09:13: Influenza Typ A,B (EIA) Negative for flu a/b 11/10/18 09:13: WBC 6.3, RBC 4.75, Hgb 14.4, Hct 42.8, MCV 90.1, MCH 30.3, MCHC 33.6, RDW 14.1, Plt Count 112 L, MPV 9.5, Neut % (Auto) 72.0 H, Lymph % (Auto) 13.8 L, Mccreary % (Auto) 7.3 H, Eos % (Auto) 6.7 H, Baso % (Auto) 0.2, Lymph # (Auto) 0.9 L, Mccreary # (Auto) 0.5, Eos # (Auto) 0.4, Baso # (Auto) 0.01, Absolute Neuts (auto) 4.53 I have reviewed the lab results: Yes - RAD Interpretation Narrative RAD Interpretations (Text): 11/10/18 12:13 Mild vascular congestion Radiology Orders: 11/10/18 09:01 CHEST PORTABLE [RAD] Stat Pole Framer Machine: Radiologist - EKG Interpretation EKG Interpretation (Text): 11/10/18 12:13 EKG - Ventricular paced rhythm - Paced at 63/min Interpreted by ED Physician: Yes Type: 12 lead EKG - Medication Orders Current Medication Orders: Discontinued Medications Acetaminophen (Tylenol 325mg Tab) 650 mg PO STAT STA Stop: 11/10/18 09:02 Albuterol/Ipratropium (Duoneb 3 Mg/0.5 Mg (3 Ml) Ud) 3 ml IH STAT STA Stop: 11/10/18 09:05 Methylprednisolone (Solu-Medrol) 125 mg IVP STAT STA Stop: 11/10/18 09:05 <Cosmo Gray - Last Filed: 11/10/18 11:50> - Lab Interpretations Lab Results: pCO2 41 mm/Hg (35-45) 11/10/18 10:42 pO2 86.0 mm/Hg (80-100) 11/10/18 10:42 HCO3 25.4 mmol/L (21-28) 11/10/18 10:42 ABG pH 7.40 (7.35-7.45) 11/10/18 10:42 ABG Total CO2 26.7 mmol.L (22-28) 11/10/18 10:42 ABG O2 Saturation 98.4 % (95-98) H 11/10/18 10:42 ABG O2 Content 19.7 ML/dl (15-23) 11/10/18 10:42 ABG Base Excess 0.5 mmol/L (-2.0-3.0) 11/10/18 10:42 ABG Hemoglobin 14.6 g/dL (11.7-17.4) 11/10/18 10:42 ABG Carboxyhemoglobin 1.9 % (0.5-1.5) H 11/10/18 10:42 POC ABG HHb (Measured) 1.6 % (0-5) 11/10/18 10:42 ABG Methemoglobin 0.6 % (0.0-3.0) 11/10/18 10:42 ABG O2 Capacity 20.0 mL/dl (16-24) 11/10/18 10:42 Hgb O2 Saturation 95.9 % (95.0-98.0) 11/10/18 10:42 FiO2 28.0 % 11/10/18 10:42 Troponin I 0.02 ng/mL D 11/10/18 09:13 Total Bilirubin 0.9 mg/dL (0.2-1.3) 11/10/18 09:13 AST 51 U/L (17-59) 11/10/18 09:13 ALT 36 U/L (7-56) 11/10/18 09:13 Alkaline Phosphatase 78 U/L (38-126) 11/10/18 09:13 Total Protein 7.8 g/dL (5.8-8.3) 11/10/18 09:13 Albumin 4.3 g/dL (3.0-4.8) 11/10/18 09:13 Globulin 3.5 gm/dL 11/10/18 09:13 Albumin/Globulin Ratio 1.2 (1.1-1.8) 11/10/18 09:13 - RAD Interpretation Radiology Orders: 11/10/18 09:01 CHEST PORTABLE [RAD] Stat - Medication Orders Current Medication Orders: Acetaminophen (Tylenol 325mg Tab) 650 mg PO Q6H PRN PRN Reason: Fever >100.4 F Acetylcysteine (Acetylcysteine 20%) 4 ml IH BIDRESP [facility] Allopurinol (Zyloprim) 100 mg PO DAILY [facility] Alprazolam (Xanax) 0.25 mg PO HS PRN; Protocol PRN Reason: Anxiety Stop: 11/17/18 12:42 Arformoterol Tartrate (Brovana) 15 mcg IH [id number] [facility] Aspirin (Ecotrin) 81 mg PO DAILY [facility] Atorvastatin Calcium (Lipitor) 10 mg PO DAILY [facility] Budesonide (Pulmicort Respules) 0.5 mg IH [id number] [facility] Colchicine (Colocrys) 0.6 mg PO DAILY [facility] Doxycycline Hyclate (Doryx) 100 mg PO Q12 [facility]; Protocol Enoxaparin Sodium (Lovenox) 30 mg SC DAILY [facility]; Protocol Gabapentin (Neurontin) 600 mg PO BID [facility]; Protocol Glimepiride (Amaryl) 2 mg PO BID [facility] Insulin Human Regular (Humulin R High) 0 units SC ACHS [facility]; Protocol Levalbuterol HCl (Xopenex) 1.25 mg IH [id number] PRN PRN Reason: Shortness of Breath Metformin HCl (Glucophage) 1,000 mg PO BID [facility] Methylprednisolone (Solu-Medrol) 40 mg IV Q8 [facility] Ondansetron HCl (Zofran Inj) 4 mg IVP Q6H PRN PRN Reason: Nausea/Vomiting Oxycodone/Acetaminophen (Percocet 10/325 Mg Tab) 1 tab PO TID PRN PRN Reason: Pain, moderate (4-7) Pantoprazole Sodium (Protonix Ec Tab) 40 mg PO 0630 [facility] Sertraline HCl (Zoloft) 100 mg PO DAILY [facility] Tizanidine HCl (Zanaflex) 4 mg PO HS [facility] Discontinued Medications Acetaminophen (Tylenol 325mg Tab) 650 mg PO STAT STA Stop: 11/10/18 09:02 Last Admin: 11/10/18 09:22 Dose: 650 mg MAR Pain/Vitals Document 11/10/18 09:22 MA (Rec: 11/10/18 09:22 MA [id number]) Pain Reassessment Is This A Pain ReAssessment? No Sleep Is patient sleeping during reassessment? No Re-Assess: MAR Pain/Vitals Document 11/10/18 10:22 MA (Rec: 11/10/18 10:51 MA [id number]) Pain Reassessment Is This A Pain ReAssessment? Yes Sleep Is patient sleeping during reassessment? No Presence of Pain Presence of Pain Yes Pain Scale Used Protocol: PSCALES Pain Scale Used Numeric Location Pain Location Body Communications Director Intensity 1 Scale Used Numeric Albuterol Sulfate (Albuterol 0.083% Inhal Argenis (2.5 Mg/3 Ml) Ud) 2.5 mg INH STAT STA Stop: 11/10/18 10:03 Last Admin: 11/10/18 11:22 Dose: 2.5 mg Albuterol/Ipratropium (Duoneb 3 Mg/0.5 Mg (3 Ml) Ud) 3 ml IH STAT STA Stop: 11/10/18 09:05 Last Admin: 11/10/18 09:22 Dose: 3 ml Levalbuterol HCl (Xopenex) 1.25 mg IH [id number] [facility] Methylprednisolone (Solu-Medrol) 125 mg IVP STAT STA Stop: 11/10/18 09:05 Last Admin: 11/10/18 09:22 Dose: 125 mg IVP Administration Document 11/10/18 09:22 MA (Rec: 11/10/18 09:22 FL [id number]) Charges for Administration # of IVP Administrations 1 <[place] - Last Filed: 11/10/18 13:10> Disposition/Present on Arrival - Present on Arrival Any Indicators Present on Arrival: Yes History of DVT/PE: No History of Uncontrolled Diabetes: Yes Urinary Catheter: No History of Decub. Ulcer: No History Surgical Site Infection Following: None - Disposition Have Diagnosis and Disposition been Completed?: Yes Disposition Time: 12:14 Patient Plan: Admission, Telemetry <Cosmo Gray - Last Filed: 11/10/18 11:50> <[place] - Last Filed: 11/10/18 13:10> - Disposition Diagnosis: COPD exacerbation Patient Problems: Current Active Problems Problem Status Onset COPD exacerbation Acute Condition: STABLE
[2018-11-10 09:24] LABS: BASO # 0.01 K/mm3 (0.0-2.0); BASO % 0.2 % (0.0-3.0); EOS # 0.4 (0.0-0.7); EOS % 6.7 % (1.5-5.0); HEMOGLOBIN 14.4 g/dL (14.0-18.0); LYMPH # 0.9 (1.2-3.4); LYMPH % 13.8 % (22.0-35.0); MEAN CELL VOLUME 90.1 fl (80.0-105.0); MEAN CORPUSCULAR HEMOGLOBIN 30.3 pg (25.0-35.0); MEAN CORPUSCULAR HGB CONC 33.6 g/dl (31.0-37.0); MEAN PLATELET VOLUME 9.5 fl (7.0-11.0); MONO # 0.5 (0.1-0.6); MONO % 7.3 % (1.0-6.0); RBC 4.75 10^6/uL (3.5-6.1); RED CELL DISTRIBUTION WIDTH 14.1 % (11.5-14.5); WHITE BLOOD COUNT 6.3 10^3/uL (4.5-11.0)
[2018-11-10 09:35] LABS: ALB/GLOB RATIO 1.2 (1.1-1.8); ALBUMIN 4.3 g/dL (3.0-4.8); ALT/SGPT 36 U/L (7-56); AST/SGOT 51 U/L (17-59); BLOOD UREA NITROGEN 17 mg/dL (7-21); CALCIUM 9.3 mg/dL (8.4-10.5); GFR NON-AFRICAN AMERICAN > 60; URIC ACID 6.7 mg/dL (3.5-8.5)
[2018-11-10 09:47] LABS: TROPONIN I 0.02 ng/mL
[2018-11-10] MEDS ORDERED: Albuterol 0.083% Inhal Sol (2.5 mg/3 mL) UD INH STA (10:02)
--- NOTE | 2018-11-10 10:26 | RAD ---
Date of service: 11/10/2018 HISTORY: SOB / Wheezing / Cough COMPARISON: 01/29/2018 FINDINGS: LUNGS: No active pulmonary disease. PLEURA: No significant pleural effusion identified, no pneumothorax apparent. CARDIOVASCULAR: No aortic atherosclerotic calcification present. Normal cardiac size. Mild vascular congestion OSSEOUS STRUCTURES: No significant abnormalities. VISUALIZED UPPER ABDOMEN: Normal. OTHER FINDINGS: None. IMPRESSION: Mild vascular congestion
[2018-11-10 10:52] LABS: ARTERIAL BLOOD GAS HCO3 25.4 mmol/L (21-28); ARTERIAL BLOOD GAS HEMOGLOBIN 14.6 g/dL (11.7-17.4); ARTERIAL BLOOD GAS O2 CONTENT 19.7 ML/dl (15-23); ARTERIAL BLOOD GAS O2 SAT 98.4 % (95-98); ARTERIAL BLOOD GAS PCO2 41 mm/Hg (35-45); ARTERIAL BLOOD GAS TCO2 26.7 mmol.L (22-28)
[2018-11-10] MEDS ORDERED: Oxycodone/Acetaminophen 10/325 mg Tab PO PRN (12:41)
[2018-11-10] MEDS ORDERED: Levalbuterol 1.25 MG/3 ML Inhal Soln UD IH PRN (12:50)
[2018-11-10] MEDS ORDERED: Levalbuterol 1.25 MG/3 ML Inhal Soln UD IH SCH (14:00)
--- NOTE | 2018-11-10 15:10 | CON ---
DATE: 11/10/2018 PULMONARY CONSULT NOTE REFERRING PHYSICIAN: Sundar Hartman MD REASON FOR CONSULTATION: Shortness of breath, cough, COPD, and sleep apnea syndrome. HISTORY OF PRESENT ILLNESS: This is a 68-year-old male with past medical history significant for COPD, diabetes, hypertension, colorectal cancer in remission, obstructive sleep apnea status post pacemaker placement. The patient is known to us from the office and past admissions. The patient is noncompliant with CPAP usage. The patient presented to emergency room complaining of productive cough and shortness of breath for the past 3 to 4 days. Reports having people who are sick in his house or work with similar symptoms. States that he has chest tightness, shortness of breath, headache, and productive cough. PAST MEDICAL HISTORY: As per history of present illness. SOCIAL HISTORY: Former smoker, quit 10 years ago. No ETOH abuse. No illicit drug use. FAMILY HISTORY: No significant cardiopulmonary disease reported. ALLERGIES: NO KNOWN ALLERGIES. MEDICATIONS: Reviewed. Home medications; prednisone 20 mg daily, Zanaflex 4 mg at bedtime, Zoloft 100 mg daily, Metformin 1000 mg twice a day, glimepiride 2 mg twice a day, Neurontin 600 mg twice a day, Lasix 20 mg daily, vitamin D weekly, 100 mg every 12 hours, colchicine 0.5 mg, Vantin 100 mg twice a day, allopurinol 100 mg daily, Percocet 10/325 mg three times a day p.r.n., and Xanax 0.25 mg at bedtime p.r.n. REVIEW OF SYSTEMS: No headache, rhinitis, abdominal pain, nausea, vomiting, diarrhea, leg pain, or leg swelling reported. The patient does report shortness of breath, feeling some chest tightness, does have headache, and productive cough. PHYSICAL EXAMINATION: GENERAL: No acute distress. VITAL SIGNS: Blood pressure 138/74, pulse 64, temperature 98.6, and oxygen saturation 95% on room air. HEENT: Moist mucous membrane. Crowded airway. Mallampati score is 4. NECK: Supple. No JVD. Short and thick. LUNGS: Fair airflow bilaterally. CARDIOVASCULAR: S1 and S2. ABDOMEN: Soft and nontender. No distension. No organomegaly. EXTREMITIES: No bilateral lower extremity edema. NEUROLOGIC: Awake, alert, verbal, and follows commands. LABORATORY DATA: Reviewed. WBC 6.3, RBC 4.75, hemoglobin 14.4, hematocrit 42.8, and platelets 112. PCO2 41, PO2 86, HCO3 25.4, ABG pH 7.40, and FiO2 28. Sodium 135, potassium 4.6, chloride 100, carbon dioxide 26, anion gap 13, BUN 17, and creatinine 1. GFR greater than 60, random glucose 170, uric acid 6.7, calcium 9.3, total bilirubin 0.9, AST 51, ALT 36, alkaline phosphatase 78. Troponin 0.02. Total protein 7.8, albumin 4.3, globulin 3.5, and albumin-globulin ratio 1.2. Influenza type A and B negative. Chest x-ray shows mild vascular congestion. EKG report pending. IMPRESSION AND PLAN: Viral syndrome triggering, chronic lung disease exacerbation, obstructive sleep apnea syndrome, cardiomyopathy, hypertension, coronary artery disease, obesity, and cardiac arrhythmia requiring pacemaker. We will agree with getting proBNP. We will followup when available. We will order procalcitonin level, RSV nasal swab. We will place the patient on doxycycline 100 mg twice a day, Solu-Medrol 20 mg every 8 hours. We will start inhaled bronchodilators, Brovana, Pulmicort, Mucomyst, and Lipase. We will place the patient on Tylenol every 6 hours p.r.n. for headache or pain. We will start the patient on continuous positive airway pressure 8 cm FIO2 30% for sleep apnea syndrome, sleep apnea precaution. We will add Protonix for gastric prophylaxis. We will place the patient on Lovenox for deep venous thrombosis prophylaxis. This patient was seen and examined with Dr. Stahl. Discussed assessment and plan as described above. This patient was seen and examined with Jacey Alexandre, nurse practitioner. Discussed assessment and plan as described above. Thank you for this consult and we will follow with you. Baldomero Mari APN Crow Stahl MD MTDD
[2018-11-10] MEDS ORDERED: Insulin Regular 1 UNITS/0.01 ML ML ONE ×2 (17:21→17:23)
[2018-11-10] MEDS: Insulin Reg-HIGH-Coverage SC SCH ×2 (17:40→21:30)
[2018-11-10] MEDS: MethylPREDNISolone 40 mg Vial IV SCH ×2 (17:52→21:31)
--- NOTE | 2018-11-10 19:11 | HP ---
DATE OF EXAM: 11/10/2018 HISTORY OF PRESENT ILLNESS: The patient is a 68-year-old known to me. He was seen in office because of cough, congestion, and having some productive cough. He was given Levaquin and he was advised to use nebulizer. His other co-workers are sick too, get short of breath even walking or going few flight of stairs and he start wheezing. Denies any fever, but did have chills. Feel tired. PAST MEDICAL HISTORY: Significant for: 1. COPD. 2. Hypertension. 3. Noninsulin-dependent diabetes. 4. History for colorectal cancer, status post colostomy and then it was reversed. 5. Status post pacemaker placement. ALLERGIES: THE PATIENT IS NOT ALLERGIC TO ANY MEDICATION. SOCIAL HISTORY: He used to be heavy smoker for 40 years and quit couple of years ago. HOME MEDICATIONS: He is on Zanaflex 4 mg daily, sertraline 100 mg daily, metformin 1000 twice a day, glimepiride 2 mg twice a day, gabapentin 600 b.i.d., colchicine 0.5 daily, allopurinol 100 daily, Xanax 0.25 at bedtime, prednisone 20 mg daily, Lasix 20 mg daily, Vitamin D, doxycycline, and Vantin. PHYSICAL EXAMINATION: GENERAL: He is short of breath. VITAL SIGNS: He is afebrile, pulse , respirations 18, and blood pressure 138/74. LUNGS: Bilateral expiratory rhonchi. HEART: S1 and S2 audible. ABDOMEN: Soft and nontender. No rebound. No guarding. Obese. No hepatosplenomegaly. NEUROLOGICAL: The patient is awake, alert, oriented, and communicative. LABORATORY DATA: WBC 6.3, hemoglobin 14, hematocrit 42.8, and platelets 112. Chemistry; sodium 135, potassium 4.6, chloride 100, CO2 of 26, BUN 17, creatinine 1, and blood sugar 170. Flu test is negative. ASSESSMENT: 1. Chronic obstructive pulmonary disease exacerbation. 2. Status post pacemaker placement. 3. Mild congestive heart failure. 4. Noninsulin-dependent diabetes. 5. Hypertension. 6. Hyperlipidemia. 7. History of colorectal cancer. PLAN: The patient will be admitted on telemetry, start him on nebulizer treatment. He will resume his medication and start him on IV steroid. He is on Lasix 40 mg daily. Pulmonary and Cardiology consult has been requested. Monitor his blood sugar. We will evaluate the patient in a.m. Sundar Hartman MD
--- NOTE | 2018-11-10 19:54 | CON ---
DATE: 11/10/2018 REASON FOR CONSULTATION: Followup cardiac evaluation, shortness of breath. BRIEF CLINICAL HISTORY: This is a 68-year-old morbidly obese male who came in with shortness of breath, history of COPD, admitted for possible exacerbation of COPD. Cardiology consult was called for cardiac evaluation. PAST MEDICAL HISTORY: Significant for diabetes, hypertension, hyperlipidemia, status post pacemaker, history of pneumonia, sepsis in the past. Past history as mentioned significant for diabetes, hypertension, hyperlipidemia, and morbid obesity, history of coronary artery disease, and history of chronic diarrhea. Significant for near syncope 04/25/2016 for multiple pauses. The patient has multiple pauses and the patient had pacemaker placed 04/26/2016 when the patient admitted with near syncope, multiple pauses. PAST SURGICAL HISTORY: Significant for history of inguinal hernia repair in the past, history of permanent pacemaker placement in the past. SOCIAL HISTORY: History of smoking heavy in the past, but now quit. Denies any history of alcohol abuse. CURRENT MEDICATIONS: The patient is taking at home Zanaflex, Zoloft, Glucophage, Amaryl, Neurontin, Chlorocol for his eyes, Zyloprim, Xanax, prednisone, Lasix, Vantin. REVIEW OF SYSTEMS: As per HPI. PHYSICAL EXAMINATION: As follows; VITAL SIGNS: Height of the patient 5 feet 9 inches, weight of the patient 260 pounds, body mass index 40 kg/m2. Vitals; temperature afebrile, heart rate 66, blood pressure 138/74. HEENT: PERRLA. Extraocular muscles intact. NECK: Supple. No carotid bruits. No thyromegaly. CHEST: Clear to auscultation. HEART: S1 and S2 regular. ABDOMEN: Soft. EXTREMITIES: Clubbing and cyanosis negative. LABORATORY DATA: Blood workup as follows; WBC 6.3, hemoglobin 14.4, hematocrit 42.8, and platelet count 112. Chemistry shows sodium 135, potassium 4.6, chloride 100, carbon dioxide 26, anion gap 13, BUN 17, and creatinine 1. Troponin 0.02. Chest x-ray shows mild vascular congestion. Poor under penetrated film. IMPRESSION: A 68-year-old male, morbidly obese, diabetes, hypertension, hyperlipidemia, history of sick sinus syndrome, multiple pauses on the last 04/26/2016 status post single-chamber VVI, admitted with acute bronchitis and chronic obstructive pulmonary disease type symptoms. The patient was offered in the last time a stress test, but the patient did not show up. Given the multiple risk factors of coronary artery disease, though chest pain is atypical, but given the multiple risk factors of coronary artery disease including diabetes, hypertension, hyperlipidemia, morbid obesity suggest echo and a stress test, so we will schedule echo and stress test tomorrow. Further recommendations depend upon hospital course. We will follow with you. We will get lipid profile, TSH, and hemoglobin A1c. We will keep n.p.o. for a stress test tomorrow. We will continue deep venous thrombosis prophylaxis. Thank you Dr. Pryor for providing us the opportunity in taking care of the patient, Bryan Mei. Crow Jain MD
[2018-11-10] MEDS: Budesonide 0.5 mg/2 ml Inhal Susp UD IH SCH (20:19)
[2018-11-10] MEDS: Acetylcysteine 20% Inhal Soln (4ml) IH SCH (20:19)
--- NOTE | 2018-11-10 23:37 | CARD ---
APPROVED REPORT Date of service: 11/10/2018 EKG Measurement Heart [id number] <Conclusion> Poor data quality, interpretation may be adversely affected Demand pacemaker, interpretation is based on intrinsic rhythm Sinus rhythm with fusion complexes Biatrial enlargement Right bundle branch block Left anterior fascicular block Bifascicular block Marked T wave abnormality, consider inferior ischemia Abnormal ECG
[2018-11-11 02:16] VITALS: RESP 20
[2018-11-11] MEDS ORDERED: Influenza Vaccine 60 mcg/0.5 mL SYR (4YR UP) IM ONE (02:16)
[2018-11-11] MEDS: MethylPREDNISolone 40 mg Vial IV SCH ×2 (06:14→22:00)
[2018-11-11] MEDS: Pantoprazole 40 mg EC Tab PO SCH (06:15)
[2018-11-11 06:55] LABS: HEMOGLOBIN 15.3 g/dL (14.0-18.0); LYMPH # 0.6 (1.2-3.4); LYMPH % 4.4 % (22.0-35.0); MEAN CELL VOLUME 89.6 fl (80.0-105.0); MEAN CORPUSCULAR HEMOGLOBIN 30.1 pg (25.0-35.0); MEAN CORPUSCULAR HGB CONC 33.6 g/dl (31.0-37.0); MEAN PLATELET VOLUME 9.5 fl (7.0-11.0); MONO # 0.5 (0.1-0.6); MONO % 3.8 % (1.0-6.0); PLATELET COUNT 134 10^3/uL (120.0-450.0); RBC 5.08 10^6/uL (3.5-6.1); RED CELL DISTRIBUTION WIDTH 13.9 % (11.5-14.5); WHITE BLOOD COUNT 12.6 10^3/uL (4.5-11.0)
[2018-11-11] MEDS: Insulin Reg-HIGH-Coverage SC SCH ×4 (07:00→21:48)
[2018-11-11 07:13] LABS: ALB/GLOB RATIO 1.3 (1.1-1.8); ALBUMIN 4.4 g/dL (3.0-4.8); ALT/SGPT 36 U/L (7-56); AST/SGOT 46 U/L (17-59); BLOOD UREA NITROGEN 29 mg/dL (7-21); CALCIUM 9.6 mg/dL (8.4-10.5); GFR NON-AFRICAN AMERICAN > 60; HDL CHOLESTEROL 37 mg/dL (29-60)
[2018-11-11 07:16] LABS: LDL CHOLESTEROL 147 mg/dL (0-129)
[2018-11-11] MEDS ORDERED: Aminophylline 25 mg/ml Inj ONE (07:50)
--- NOTE | 2018-11-11 08:10 | CP.PCM.PN ---
Subjective - Date & Time of Evaluation Date of Evaluation: 11/11/18 Time of Evaluation: 06:50 - Subjective Subjective: Awake, alert, no distress Reason for consultation and follow up: Cardiac evaluation of shortness of breath Seen and examined by me and Dr. Jain Objective - Vital Signs/Intake and Output Vital Signs (last 24 hours): Temp Pulse Resp BP Pulse Ox 97.4 F L 63 20 111/64 95 11/11/18 01:12 11/11/18 01:12 11/11/18 01:12 11/11/18 01:12 11/11/18 01:12 - Medications Medications: Current Medications Acetaminophen (Tylenol 325mg Tab) 650 mg PO Q6H PRN PRN Reason: Fever >100.4 F Acetylcysteine (Acetylcysteine 20%) 4 ml IH BIDRESP [facility] Last Admin: 11/10/18 20:19 Dose: 4 ml Allopurinol (Zyloprim) 100 mg PO DAILY [facility] Last Admin: 11/10/18 13:23 Dose: 100 mg Alprazolam (Xanax) 0.25 mg PO HS PRN; Protocol PRN Reason: Anxiety Stop: 11/17/18 12:42 Arformoterol Tartrate (Brovana) 15 mcg IH [id number] [facility] Aspirin (Ecotrin) 81 mg PO DAILY [facility] Last Admin: 11/10/18 13:23 Dose: 81 mg Atorvastatin Calcium (Lipitor) 10 mg PO DAILY [facility] Last Admin: 11/10/18 13:23 Dose: 10 mg Budesonide (Pulmicort Respules) 0.5 mg IH [id number] [facility] Last Admin: 11/10/18 20:19 Dose: 0.5 mg Colchicine (Colocrys) 0.6 mg PO DAILY [facility] Doxycycline Hyclate (Doryx) 100 mg PO Q12 [facility]; Protocol Last Admin: 11/10/18 21:31 Dose: 100 mg Enoxaparin Sodium (Lovenox) 30 mg SC DAILY [facility]; Protocol Gabapentin (Neurontin) 600 mg PO BID [facility]; Protocol Last Admin: 11/10/18 17:42 Dose: 600 mg Glimepiride (Amaryl) 2 mg PO BID [facility] Last Admin: 11/10/18 17:42 Dose: 2 mg Insulin Human Regular (Humulin R High) 0 units SC [facility]; Protocol Last Admin: 11/10/18 21:30 Dose: Not Given Levalbuterol HCl (Xopenex) 1.25 mg IH [id number] PRN PRN Reason: Shortness of Breath Metformin HCl (Glucophage) 1,000 mg PO BID [facility] Last Admin: 11/10/18 17:42 Dose: 1,000 mg Methylprednisolone (Solu-Medrol) 40 mg IV Q8 [facility] Last Admin: 11/11/18 06:14 Dose: 40 mg Ondansetron HCl (Zofran Inj) 4 mg IVP Q6H PRN PRN Reason: Nausea/Vomiting Oxycodone/Acetaminophen (Percocet 10/325 Mg Tab) 1 tab PO TID PRN PRN Reason: Pain, moderate (4-7) Pantoprazole Sodium (Protonix Ec Tab) 40 mg PO 0630 [facility] Last Admin: 11/11/18 06:15 Dose: 40 mg Sertraline HCl (Zoloft) 100 mg PO DAILY [facility] Tizanidine HCl (Zanaflex) 4 mg PO HS [facility] Last Admin: 11/10/18 21:32 Dose: 4 mg - Labs Labs: 11/11/18 06:20 11/11/18 06:20 - Constitutional Appears: Non-toxic, No Acute Distress - Eye Exam Eye Exam: Normal appearance Pupil Exam: NORMAL ACCOMODATION - ENT Exam ENT Exam: Mucous Membranes Moist, Normal Exam - Respiratory Exam Respiratory Exam: Decreased Breath Sounds, Wheezes, NORMAL BREATHING PATTERN - Cardiovascular Exam Cardiovascular Exam: REGULAR RHYTHM, +S1, +S2 Additional comments: PPM - GI/Abdominal Exam GI & Abdominal Exam: Soft, Normal Bowel Sounds - Extremities Exam Extremities Exam: Full ROM, Normal Capillary Refill - Neurological Exam Neurological Exam: Alert, Awake, Oriented x3 - Psychiatric Exam Psychiatric exam: Normal Affect, Normal Mood - Skin Skin Exam: Dry, Normal Color, Warm Assessment and Plan - Assessment and Plan (Free Text) Assessment: A 68 year old male who came in to the ER due to shortness of breath with productive cough for the past 4 days. History of PPM due sick sinus syndrome (04/2016), syncope, COPD on home oxygen, diabetes, hypertension, colorectal cancer with colectomy, with colostomy with reversal, on remission, former smoker 2 PPD for 37 years quit 20 years ago. History of coronary artery disease,chronic diarrhea. Admitted for exacerbation of COPD. He was scheduled to have Stress test as outpatient before but did not show up. He is scheduled for Stress test today. Echo on 01/27/18 showed LVEF 56%, mild MR/TR. Negative for influenza. Plan: No distress For Stress test today Heart rate stable Blood pressure stable On ASA 81 mg daily,Lipitor 10 mg daily,Solumedrol 40 mg every 8 hours Continue current treatment Continue current medications Will follow up Plan and treatment discussed with Dr. Jain
[2018-11-11] MEDS: Acetylcysteine 20% Inhal Soln (4ml) IH SCH ×2 (08:14→20:25)
[2018-11-11] MEDS: Budesonide 0.5 mg/2 ml Inhal Susp UD IH SCH ×2 (08:14→20:26)
[2018-11-11] MEDS: Arformoterol 15 mcg/2 ml Inh Sol IH SCH ×2 (08:14→20:26)
[2018-11-11 09:03] LABS: BAND 2 % (0-2); LYMPHOCYTE 4 % (22.0-35.0); MONOCYTE 6 % (1.0-6.0); NEUTROPHIL 88 % (50.0-70.0)
[2018-11-11] MEDS: Enoxaparin 30 mg Syringe SC SCH (12:26)
--- NOTE | 2018-11-11 12:32 | CP.PCM.APN ---
Subjective - Date & Time of Evaluation Date of Evaluation: 11/11/18 Time of Evaluation: 11:50 - Subjective Subjective: Pt. seen sitting up in bed. just completed respiratory treatment. States feels little better. Objective - Vital Signs/Intake and Output Vital Signs (last 24 hours): Temp Pulse Resp BP Pulse Ox 97.4 F L 62 20 110/64 94 L 11/11/18 08:30 11/11/18 10:13 11/11/18 08:30 11/11/18 10:13 11/11/18 08:30 - Medications Medications: Current Medications Acetaminophen (Tylenol 325mg Tab) 650 mg PO Q6H PRN PRN Reason: Fever >100.4 F Acetylcysteine (Acetylcysteine 20%) 4 ml IH BIDRESP [facility] Last Admin: 11/11/18 08:14 Dose: Not Given Allopurinol (Zyloprim) 100 mg PO DAILY [facility] Last Admin: 11/10/18 13:23 Dose: 100 mg Alprazolam (Xanax) 0.25 mg PO HS PRN; Protocol PRN Reason: Anxiety Stop: 11/17/18 12:42 Arformoterol Tartrate (Brovana) 15 mcg IH [id number] [facility] Last Admin: 11/11/18 08:14 Dose: Not Given Aspirin (Ecotrin) 81 mg PO DAILY [facility] Last Admin: 11/10/18 13:23 Dose: 81 mg Atorvastatin Calcium (Lipitor) 40 mg PO DAILY [facility] Budesonide (Pulmicort Respules) 0.5 mg IH [id number] [facility] Last Admin: 11/11/18 08:14 Dose: Not Given Colchicine (Colocrys) 0.6 mg PO DAILY [facility] Doxycycline Hyclate (Doryx) 100 mg PO Q12 [facility]; Protocol Last Admin: 11/10/18 21:31 Dose: 100 mg Enoxaparin Sodium (Lovenox) 30 mg SC DAILY [facility]; Protocol Gabapentin (Neurontin) 600 mg PO BID [facility]; Protocol Last Admin: 11/10/18 17:42 Dose: 600 mg Glimepiride (Amaryl) 2 mg PO BID [facility] Last Admin: 11/10/18 17:42 Dose: 2 mg Insulin Human Regular (Humulin R High) 0 units SC ACHS [facility]; Protocol Last Admin: 11/10/18 21:30 Dose: Not Given Levalbuterol HCl (Xopenex) 1.25 mg IH [id number] PRN PRN Reason: Shortness of Breath Last Admin: 11/11/18 11:45 Dose: 1.25 mg Metformin HCl (Glucophage) 1,000 mg PO BID [facility] Last Admin: 11/10/18 17:42 Dose: 1,000 mg Methylprednisolone (Solu-Medrol) 40 mg IV Q12 [facility] Ondansetron HCl (Zofran Inj) 4 mg IVP Q6H PRN PRN Reason: Nausea/Vomiting Oxycodone/Acetaminophen (Percocet 10/325 Mg Tab) 1 tab PO TID PRN PRN Reason: Pain, moderate (4-7) Pantoprazole Sodium (Protonix Ec Tab) 40 mg PO 0630 [facility] Last Admin: 11/11/18 06:15 Dose: 40 mg Sertraline HCl (Zoloft) 100 mg PO DAILY [facility] Tizanidine HCl (Zanaflex) 4 mg PO HS [facility] Last Admin: 11/10/18 21:32 Dose: 4 mg - Labs Labs: 11/11/18 06:20 11/11/18 06:20 - Constitutional Appears: Well, Non-toxic - Head Exam Head Exam: NORMOCEPHALIC - Eye Exam Eye Exam: absent: Conjunctival injection, EOMI, Normal appearance, Nystagmus, Periorbital swelling, Periorbital tenderness, PERRL, Scleral icterus - ENT Exam ENT Exam: absent: Mucous Membranes Dry, Mucous Membranes Moist, Normal Exam, Normal External Ear Exam, Normal Oropharynx, TM's Normal Bilaterally - Neck Exam Neck Exam: Full ROM - Respiratory Exam Respiratory Exam: Rales, Wheezes - Cardiovascular Exam Cardiovascular Exam: REGULAR RHYTHM, +S1, +S2 - GI/Abdominal Exam GI & Abdominal Exam: Soft - Rectal Exam Rectal Exam: Deferred - Exam Exam: absent: Circumcision, NORMAL INSPECTION, Scrotal Swelling, Testicular Tenderness, Uretheral Discharge, Testicular Vertical Lie, Bladder Distension External exam: absent: Ecchymosis, Erythema, Lacerations, Lesions, NORMAL EXTERNAL EXAM, Swelling Speculum exam: absent: Cervical Discharge, Erythema, Foreign Body, Laceration, NORMAL SPECULUM EXAM, Tissue, Vaginal Bleeding, Vaginal Discharge Bimanual exam: absent: Adenexal Mass, Adnexal, Cervical Motion Tendernes, NORMAL BIMANUAL EXAM, Uterine Enlargement, Uterine Tenderness - Extremities Exam Extremities Exam: Full ROM - Back Exam Back Exam: NORMAL INSPECTION - Neurological Exam Neurological Exam: Alert, Awake, Oriented x3 - Psychiatric Exam Psychiatric exam: Agitated - Skin Skin Exam: Dry, Intact, Normal Color, Warm Assessment and Plan - Assessment and Plan (Free Text) Assessment: ITS Impressions Chest X-Ray 11/10/18 09:01 IMPRESSION: Mild vascular congestion nuclear stress test,11/11/18- results of nuclear images pending. Assessment: 68M w/ PMH most significant for COPD not on home O2 c/o of productive cough + sob ongoing x4 days, admitted with COPD Exac from E.D., for further eval and treatment, with pulmonary and cardiology consulted. Plan: 1. COPD Exac IV steroid weaning, cont Duonebs, Inhalers. MOnitor oxygen sats. 2. Chest pain Stress test completed today, Will continue to monitor clinical status and follow closely.
--- NOTE | 2018-11-11 12:34 | CARD ---
APPROVED REPORT Date of service: 11/11/2018 EXAM: Two-dimensional and M-mode echocardiogram with Doppler and color Doppler. INDICATION Chest Pain 2D DIMENSIONS Left Atrium (2D)5.4 (1.6-4.0cm)IVSd1.3 (0.7-1.1cm) LVDd5.8 (3.9-5.9cm)PWd1.3 (0.7-1.1cm) LVDs3.8 (2.5-4.0cm)FS (%) 34.5 % LVEF (%)62.9 (>50%) M-Mode DIMENSIONS Aortic Root3.70 (2.2-3.7cm)Aortic Cusp Exc.1.90 (1.5-2.0cm) Aortic Valve AoV Peak Aillytlw094.0cm/Ratna Peak GR.15mmHgAI P 1/2 [id number] Mitral Valve MV E Romafqtc33.4cm/sMV A Mhvblipg97.6cm/sE/A ratio1.2 TDI Lateral E' Peak V6.53cm/sMedial E' Peak V8.77cm/sE/Lateral E'13.2 E/Medial E'9.9 Pulmonary Valve PV Peak Bmxvpzuu25.9cm/sPV Peak Grad.3mmHg Tricuspid Valve TR Peak Bvulsiid688cs/sRAP [id number] Peak Gr.30mmHg [id number] LEFT VENTRICLE The left ventricle is normal size. There is mild concentric left ventricular hypertrophy. The left ventricular function is normal.EF-60-65% There is normal LV segmental wall motion. The left ventricular diastolic function is normal. No left ventricle thrombus noted on this study. There is no ventricular septal defect visualized. There is no left ventricular aneurysm. There is no mass noted in the left ventricle. RIGHT VENTRICLE The right ventricle is normal size. There is normal right ventricular wall thickness. The right ventricular systolic function is normal. ATRIA The left atrium is mildly dilated. The right atrium size is normal. The interatrial septum is intact with no evidence for an atrial septal defect. AORTIC VALVE The aortic valve is thickened but opens well. There is trace to mild aortic regurgitation. There is no aortic valvular stenosis. There is no aortic valvular vegetation. MITRAL VALVE The mitral valve is thickened but opens well. Mitral regurgitation is trace to mild. There is no mitral valve stenosis. There is no evidence of mitral valve prolapse. TRICUSPID VALVE The tricuspid valve leaflets are thickened , but open well. There is trace to mild tricuspid regurgitation.RVSP-40 mm of Hg. There is no tricuspid valve stenosis. There is no tricuspid valve prolapse or vegetation. PULMONIC VALVE The pulmonary valve is normal in structure. There is trace to mild pulmonic valvular regurgitation. There is no pulmonic valvular stenosis. GREAT VESSELS The aortic root is normal in size. The ascending aorta is normal in size. The pulmonary artery is normal. The IVC is normal in size and collapses >50% with inspiration. PERICARDIAL EFFUSION There is no pleural effusion. There is no pericardial effusion. <Conclusion> The left ventricle is normal size. There is mild concentric left ventricular hypertrophy. The left ventricular function is normal.EF-60-65% Normal RV size and Function. There is trace to mild aortic regurgitation. Mitral regurgitation is trace to mild. There is trace to mild tricuspid regurgitation.RVSP-40 mm of Hg. There is trace to mild pulmonic valvular regurgitation. The IVC is normal in size and collapses >50% with inspiration. There is no pericardial effusion.
--- NOTE | 2018-11-11 13:08 | PN ---
DATE: 11/11/2018 PULMONARY PROGRESS NOTE REFERRING PHYSICIAN: Sundar Hartman MD SUBJECTIVE: The patient is lying in bed. No acute distress. No overnight events reported. The patient reports still having some shortness of breath which has improved, still with some coughing. No headache, rhinitis, chest pain, abdominal pain, nausea, vomiting, diarrhea, leg pain, or leg swelling reported. PHYSICAL EXAMINATION: GENERAL: No acute distress. VITAL SIGNS: Blood pressure 128/75, pulse 77, temperature 97.4, and oxygen saturation 94%. HEENT: Moist mucous membrane. Crowded airway. Mallampati score is 4. NECK: Supple. No JVD. Short and thick. LUNGS: Fair airflow bilaterally. CARDIOVASCULAR: S1 and S2. ABDOMEN: Soft and nontender. No distention. No organomegaly. EXTREMITIES: No bilateral lower extremity edema. NEUROLOGIC: Awake, alert, verbal, and follows commands. MEDICATIONS: Reviewed. Tylenol 650 every 6 hours p.r.n. for fever greater than 100.4, Mucomyst 4 mL inhalation twice a day, allopurinol 100 mg daily, Xanax 0.25 mg at bedtime p.r.n., Brovana 15 mcg every 12 hours, aspirin 81 mg daily, Lipitor 40 mg daily, Pulmicort 0.5 mg every 12 hours, colchicine 0.6 mg daily, doxycycline 100 mg every 12 hours, Lovenox 30 mg subcu daily, Neurontin 600 mg twice a day, glimepiride 2 mg twice a day, Humulin R sliding scale a.c. and at bedtime, Xopenex 1.25 mg inhalation every 6 hours p.r.n., metformin 1000 mg twice a day, Solu-Medrol 40 mg every 8 hours, Zofran 4 mg IV push every 6 hours p.r.n., Percocet 10/325 mg one tablet three times a day p.r.n., Protonix 40 mg daily, Zoloft 100 mg daily, Zanaflex 4 mg at bedtime. LABORATORY DATA: Reviewed. WBC 12.6, RBC 5.08, hemoglobin 15.3, hematocrit 45.5, and platelets 134. Sodium 136, potassium 5.1, chloride 100, carbon dioxide 28, anion gap 13, BUN 29, and creatinine 1. GFR greater than 60, POC glucose 200, random glucose 238, calcium 9.4, phosphorous 4.3, magnesium 1.9, total bilirubin 0.6, AST 46, ALT 36, alkaline phosphatase 84. Total protein 7.9, albumin 4.4, globulin 3.5, and albumin-globulin ratio 1.3, triglycerides 81, cholesterol 206, LDL 47, HDL 37. TSH 0.43, procalcitonin 0.11, proBNP 157. Echocardiogram report pending. Chest x-ray report pending. IMPRESSION AND PLAN: Viral syndrome triggering, chronic lung disease exacerbation, obstructive sleep apnea syndrome, cardiomyopathy, hypertension, coronary artery disease, obesity, cardiac arrhythmia requiring pacemaker. Continue antibiotic therapy at this time. We will decrease Solu-Medrol to 40 mg every 12 hours. Continue inhaled bronchodilators. Continue to encourage CPAP use at bedtime, sleep apnea precaution, gastric prophylaxis, deep venous thrombosis prophylaxis. This patient was seen and examined with Dr. Stahl. Discussed assessment and plan as described above. This patient was seen and examined with Baldomero Mari, nurse practitioner. Discussed assessment and plan as described above. Thank you for this consult. We will follow with you. Baldomero Mari APN Crow Stahl MD
[2018-11-11] MEDS: guaiFENesin DM 100 mg-10 mg/5 ml UD PO PRN ×2 (13:55→20:10)
--- NOTE | 2018-11-11 16:16 | PN ---
DATE: 11/11/2018 SUBJECTIVE: The patient is 68 years old, seen and examined. He states he still has cough, he still has wheezing. Denies any nausea or vomiting. No chest pain. PHYSICAL EXAMINATION VITAL SIGNS: He is afebrile, pulse 77, respirations 20, and blood pressure 110/64. LUNGS: Bilateral fair airflow. Occasional expiratory rhonchi. HEART: S1 and S2, audible. ABDOMEN: Soft and nontender. No rebound. No guarding. NEUROLOGIC: He is awake, alert, oriented, able to communicate. EXTREMITIES: Bilateral legs, no edema. LABORATORY DATA: WBC is 12.6, hemoglobin 15, hematocrit 45, and platelets 134. Chemistry; sodium 136, potassium 5.1, chloride 100, CO2 of 28, BUN 29, creatinine 1.0, blood sugar 200. Total cholesterol 206, LDL is 147. He had nuclear stress test done, which is also pending. Echocardiogram is pending. ASSESSMENT 1. Chronic obstructive pulmonary disease exacerbation. 2. Congestive heart failure. 3. Status post pacemaker placement. 4. Morbid obesity. 5. Noninsulin-dependent diabetes. 6. History of gout. PLAN: Currently, the patient is on IV steroid. We will continue to monitor his blood sugar, resume his medication, analgesics as needed. We will re-evaluate the patient in a.m., and we will taper down steroid according to his response. Sundar Hartman MD
--- NOTE | 2018-11-11 21:31 | CARD ---
APPROVED REPORT Date of service: 11/11/2018 Protocol: LEXISCAN Test Type: Lexiscan Sestamibi Stress Test Attending Physician: Dr. Crow Jain Referring Physician: Dr. Sundar Hartman Test Indications: Chest Pain Height:5 ft 8 in Weight:260lbs Medications: Tylenol, Zyloprim, Xanax, Brovana Ecotrin, Lipitor, Colchicine, Lovenox Neurontin, Amaryl, Humulin R, Xopenex, Metformin, Solu Medrol Zofran, Percocet, Protonix, Zoloft Zanaflex Medical History: 68 year old male with a history of diabetes, COPD, asthma, HTN, high cholesterol, CAD, colon cancer Target HR: 151 bpm Resting ECG: NSR V paced rhythm Resting Heart Rate: 63 bpm Resting Blood Pressure: 110/64mmHg Submaximum (85%): 128 bpm PROCEDURE Pharmacologic stress testing was performed using 0.4mg per 5ml of regadenoson given intravenously over 7-10 seconds. Reversal agent aminophyline 100 mg, given intravenously for Dyspnea. POST EXERCISE Reason for Termination: Protocol completed Target HR: No Max HR: 73 bpm 49% of Maximum Predicted HR: 151 bpm Exercise duration: 01:10 min:sec, 0 Stage Exercise capacity: 1.0METs Max Blood Pressure: 130/64mmHg Blood Pressure response to exercise: normal resting BP - appropriate response Heart Rate response to exercise: appropriate Chest Pain: No, none Angina index: 0 Arrhythmia: No, none ST Change: No, none from base line Deviation: 0 mm TEST SUMMARY [id number]. INFUSIONDOSE 101:000.00..071/.0. INFUSIONDOSE 200:[id number]/.0. [id number]. INTERPRETATION Stress EKG Conclusion: Non diagnostic B/c V paced rhythm,but no complain of chest pain, Nuclear scan to follow. Signed by Crow Jain Electronically Approved: 11/11/2018 10:10:30 EXAM: Myocardial Perfusion REST/STRESS Stress Test Type: Pharmacologic Imaging Protocol The imaging protocol used to acquire images was Rest Tc-99m/stress Tc-99m 1 day Rest Spect myocardial perfusion imaging was performed in supine position 45 minutes following the injection of 10.3 mCi of Tc-99 Myoview. At peak stress, the patient was injected intravenously with 30.2mCi of Tc-99 tetrofosmin after an infusion time of 0 minutes and 10 seconds. Gated Stress Spect was performed 65 minutes after intravenous Tc-99 Myoview injection. The images were gated to evaluate regional wall motion and calculate ventricular ejection fraction.Images were reconstructed using backfilter projection method in short horizontal and verticle long axis. Spect slices were generated. LV Perfusion The quality of the study is good. The left ventricle is moderately enlarged in size with thickened myocardium. The right ventricle is unremarkable. The lung uptake is normal. The distribution of tracer reveals mildly to moderately decreased perfusion involving apical and inferior barger on the stress study. The remainder of the LV myocardium is unremarkable. The rest myocardial perfusion study shows no significant change. Wall Motion Wall motion study shows good contractility of the left ventricle. LVEF = 60 %. Conclusion 1. Probably normal SPECT myocardial perfusion study. 2. Fixed, apical and inferior defects are probably due to diaphrgmatic attenuation. However, previous myocardial injury cannot be excluded. 3. Normal gated wall motion and thicknening of the left ventricle. 4. In comparison with the last study of 01/03/2017, there is improvement of LV contractility.
[2018-11-11] MEDS ORDERED: Alum-Mag Hydrox-Simethicone Susp (30 mL) PO ONE (23:23)
[2018-11-12] MEDS: Pantoprazole 40 mg EC Tab PO SCH (05:17)
[2018-11-12] MEDS: Insulin Reg-HIGH-Coverage SC SCH ×4 (07:30→21:30)
[2018-11-12] MEDS: Budesonide 0.5 mg/2 ml Inhal Susp UD IH SCH ×2 (07:55→20:23)
[2018-11-12] MEDS: Arformoterol 15 mcg/2 ml Inh Sol IH SCH ×2 (07:55→20:23)
[2018-11-12] MEDS: Acetylcysteine 20% Inhal Soln (4ml) IH SCH ×2 (07:55→20:23)
[2018-11-12] MEDS: Enoxaparin 30 mg Syringe SC SCH (10:36)
[2018-11-12] MEDS: MethylPREDNISolone 40 mg Vial IV SCH ×2 (10:37→21:15)
--- NOTE | 2018-11-12 14:46 | PN ---
DATE: 11/12/2018 SUBJECTIVE: The patient is 68 years old, seen and examined sitting in chair, seems to be comfortable with less cough and congestion. PHYSICAL EXAMINATION: VITAL SIGNS: He is afebrile. Pulse 60, respiration 20, blood pressure 107/59. LUNGS: Bilateral expiratory rhonchi. HEART: S1 and S2 audible. ABDOMEN: Soft, obese, nontender. No rebound. No guarding. NEUROLOGIC: The patient is awake, alert, oriented, able to communicate. Bilateral leg no edema. LABORATORY DATA: His stress test is unremarkable. Echocardiogram, LV function is good with ejection fraction of 60-65%. ASSESSMENT: 1. Chronic obstructive pulmonary disease exacerbation. 2. Morbid obesity. 3. Non insulin-dependent diabetes. 4. Hypertension. 5. History of colorectal cancer. PLAN: So plan is we will taper down steroids. Continue nebulizer treatment. If the patient continued to improve, possible discharge plan in the a.m. Encourage ambulation. We will follow up the patient in the a.m. Sundar Hartman MD
--- NOTE | 2018-11-12 15:36 | CP.PCM.PCO ---
Physician Communication Note - Physician Communication Note Physician Communication Note: improved resp status,wheezes right base,iv steroid tapered,plan DC 11/13,
--- NOTE | 2018-11-12 16:42 | PN ---
DATE: 11/12/2018 PULMONARY PROGRESS NOTE REFERRING PHYSICIAN: Sundar Hartman MD SUBJECTIVE: The patient is sitting up in armchair in room. No acute distress. Reports feeling much better today. No headache, rhinitis, cough, shortness of pain, chest pain, abdominal pain, nausea, vomiting, diarrhea, leg pain, or leg swelling reported. OBJECTIVE: GENERAL: No acute distress. VITAL SIGNS: Blood pressure 107/59, pulse 60, temperature 97.7 and oxygen saturation 94% on room air. HEENT: Moist mucous membrane. Crowded airway. Mallampati score is 4. NECK: Supple. No JVD. Short and thick. LUNGS: Fair airflow bilaterally. CARDIOVASCULAR: S1 and S2. ABDOMEN: Soft and nontender. No distention. No organomegaly. EXTREMITIES: No bilateral lower extremity edema. NEUROLOGIC: Awake, alert and verbal. Follows commands. MEDICATIONS: Reviewed. Tylenol 650 every 6 hours p.r.n. for fever greater than 100.4, Mucomyst 4 mL inhalation twice a day, allopurinol 100 mg daily, Xanax 0.25 mg at bedtime p.r.n., Brovana 15 mcg every 12 hours, aspirin 81 mg daily, Lipitor 40 mg daily, Pulmicort 0.5 mg every 12 hours, colchicine 0.6 mg p.o. daily, doxycycline 100 mg every 12 hours, Lovenox 30 mg subcutaneous daily, Neurontin 600 mg twice a day, glimepiride 4 mg twice a day, Robitussin 5 mL every 4 hours p.r.n., Humulin R sliding scale a.c. and at bedtime, Xopenex 1.25 mg inhalation every 6 hours p.r.n., metformin 1000 mg twice a day, Solu-Medrol 30 mg every 12 hours, Zofran 4 mg every 6 hours p.r.n., Percocet one tablet three times a day p.r.n., Protonix 40 mg daily, Zoloft 100 mg daily and Zanaflex 4 mg at bedtime. LABORATORY DATA: Reviewed. POC glucose 276. Myocardial stress test shows improve in LV contractility, probably normal SPECT myocardial perfusion study. Echocardiogram shows ejection fraction 60% to 65%, RVSP 40, trace to mild pulmonic valvular regurgitation, mitral regurgitation, trace to mild aortic regurgitation. IMPRESSION AND PLAN: Viral syndrome triggering chronic lung disease exacerbation, obstructive sleep apnea syndrome, cardiomyopathy, coronary artery disease, hypertension, obesity, cardiac arrhythmia requiring pacemaker. Continue antibiotic therapy. Agree with primary on decreasing Solu-Medrol. Continue inhaled bronchodilators. Continue to encourage continuous positive airway pressure use at bedtime, sleep apnea precaution and deep venous thrombosis prophylaxis, gastric prophylaxis, head of bed elevated at 45 degrees. This patient was seen and examined with Dr. Stahl. Discussed assessment and plan as described above. This patient was seen and examined with Baldomero Mari, nurse practitioner. Discussed assessment and plan as described above. Thank you for this consult. We will follow with you. Baldomero Mari APN Crow Stahl MD
--- NOTE | 2018-11-12 19:48 | PN ---
DATE: 11/12/2018 LOCATION: The patient is in room 371, bed 1. REASON FOR CONSULTATION: Shortness of breath, COPD, home oxygen, diabetes, hypertension, history of pacemaker insertion for sick sinus syndrome, history of colostomy which was reversed in the past, and history of coronary artery disease. The patient was admitted with shortness of breath, found to have exacerbation of COPD. The patient denies chest pain or palpitation. His breathing is getting better. PHYSICAL EXAMINATION: VITAL SIGNS: Blood pressure 107/59, respiration 20, pulse 60, and temperature 97.7. HEENT: Head is normocephalic. Eyes; pupil normal. Conjunctivae normal. Nose and throat normal. NECK: JVP low. Carotids equal. THORAX: AP diameter normal. LUNGS: No significant rales. CARDIOVASCULAR: S1 and S2. ABDOMEN: Protuberant. No organomegaly. EXTREMITIES: No clubbing. No cyanosis. LABORATORY DATA: WBC 12.6, hemoglobin 15.3, hematocrit 45.5, platelets 134, and random sugar 276. Sodium 136 yesterday and potassium 5.1, BUN 29, and creatinine 1.0. Calcium, phosphorus, magnesium, AST, ALT, total protein, and albumin normal. Cholesterol 206 and LDL 147. The patient had stress test on 11/11/2018 which was negative for ischemia with LV ejection fraction of 60%. The patient had echocardiogram also on 11/11/2018 showed ventricle size is normal, mild concentric left ventricular hypertrophy, LV ejection fraction of 60 to 65%, normal RV size and function, trace to mild aortic regurgitation, trace to mild mitral regurgitation, trace to mild tricuspid regurgitation, RVSP 40 mmHg, suggestive of very mild pulmonary hypertension. DIAGNOSES: Shortness of breath, exacerbation of chronic obstructive pulmonary disease, pacemaker insertion status post sick sinus syndrome, diabetes, hypertension, status post surgery for colorectal cancer, obesity, coronary artery disease, and very mild pulmonary hypertension. PLAN: Continue Amaryl 4 mg b.i.d., colchicine 0.6 mg p.o. daily, doxycycline hyclate 100 mg p.o. every 12 hours, aspirin 81 mg daily, metformin 1000 mg b.i.d., insulin as ordered, Lipitor 40 daily, Lovenox 30 daily, gabapentin 600 mg b.i.d., Protonix 40 daily, methylprednisolone 30 mg IV every 12 hours. We will continue present therapy and advised the patient to lose weight. We will follow with you closely. Crow Brown MD
[2018-11-13] MEDS: Pantoprazole 40 mg EC Tab PO SCH (05:47)
[2018-11-13] MEDS: Acetylcysteine 20% Inhal Soln (4ml) IH SCH (08:05)
[2018-11-13] MEDS: Budesonide 0.5 mg/2 ml Inhal Susp UD IH SCH (08:05)
[2018-11-13] MEDS: Arformoterol 15 mcg/2 ml Inh Sol IH SCH (08:05)
[2018-11-13] MEDS: Insulin Reg-HIGH-Coverage SC SCH ×2 (08:37→12:21)
[2018-11-13 08:58] VITALS: BP 143/76; PULSE 67; TEMP 97.2; O2SAT 95
[2018-11-13] MEDS: Enoxaparin 30 mg Syringe SC SCH (10:04)
[2018-11-13] MEDS: MethylPREDNISolone 40 mg Vial IV SCH (10:12)
--- NOTE | 2018-11-13 13:23 | CON ---
DATE: 11/13/2018 PULMONARY CONSULT NOTE REFERRING PHYSICIAN: Sundar Hartman MD HISTORY OF PRESENT ILLNESS: The patient is sitting in armchair in room, no acute distress. No overnight events reported. Reports feeling much better this morning. No headache, rhinitis, chest pain, abdominal pain, nausea, vomiting, diarrhea, leg pain or leg swelling reported. The patient denies shortness of breath. States that, cough have also improved. PHYSICAL EXAMINATION: VITAL SIGNS: Blood pressure 143/76, pulse 67, temperature 97.2 and oxygen saturation 95% on room air. GENERAL: No acute distress. HEENT: Moist mucous membranes. Crowded airway. Mallampati score 4. NECK: Supple. No JVD. Short and thick. LUNGS: Fair airflow bilaterally. CARDIOVASCULAR: S1 and S2. ABDOMEN: Soft and nontender. No distention. No organomegaly. EXTREMITIES: No bilateral lower extremity edema. NEUROLOGIC: Awake, alert, verbal and follows commands. MEDICATIONS: Reviewed. Tylenol 650 every 6 hours p.r.n. fever greater than 100.4, Mucomyst 4 mL inhalation twice a day, allopurinol 100 mg daily, Xanax 0.25 mg at bedtime p.r.n., Brovana 15 mcg every 12 hours, aspirin 81 mg daily, Lipitor 40 mg daily, Pulmicort 0.5 mg inhalation every 12 hours, colchicine 0.6 mg p.o. daily, doxycycline 100 mg every 12 hours, Lovenox 30 mg daily, Neurontin 600 mg twice a day, glimepiride 4 mg twice a day, Robitussin DM 5 mL every 4 hours p.r.n., Humulin R sliding scale a.c. and at bedtime, Xopenex 1.25 mg inhalation every 6 hours p.r.n., Glucophage 1000 mg twice a day, Solu-Medrol 30 mg every 12 hours, Zofran 4 mg every 6 hours p.r.n., Percocet 10/325 mg one tablet 3 times a day p.r.n., Protonix 40 mg daily, Zoloft 100 mg daily and Zanaflex 4 mg at bedtime. LABORATORY DATA: Reviewed. POC glucose 233. IMPRESSION AND PLAN: Viral syndrome triggering chronic lung disease exacerbation, obstructive sleep apnea syndrome, cardiomyopathy, coronary artery disease, hypotension, obesity, cardiac arrhythmia requiring pacemaker. The patient is noncompliant with continuous positive airway pressure machine while at home. Continue inhaled bronchodilators, sleep apnea precaution, deep venous thrombosis prophylaxis, gastric prophylaxis and head of bed elevated at 45 degrees. This patient was seen and examined with Dr. Stahl. Discussed assessment and plan as described above. This patient was seen and examined with Jacey Alexandre, nurse practitioner. Discussed assessment and plan as described above. Thank you for this consult. We will follow with you. Baldomero Mari APN Crow Stahl MD
--- NOTE | 2018-11-13 14:54 | PN ---
DATE: 11/13/2018 LOCATION: The patient is in room 371, bed 1. REASON FOR CONSULTATION: Shortness of breath, COPD, home oxygen, diabetes, hypertension, and pacemaker insertion. SUBJECTIVE: The patient is breathing much better. Denies chest pain, shortness of breath, or palpitation. PHYSICAL EXAMINATION: VITAL SIGNS: Blood pressure 143/76, respirations 20, pulse 67, and temperature 97.2. HEENT: Head is normocephalic. Eyes; pupil normal. Conjunctivae normal. Nose and throat normal. NECK: JVP low. Carotid equal. THORAX: AP diameter normal. LUNGS: No significant rales. CARDIOVASCULAR: S1 and S2. ABDOMEN: Soft and nontender. No organomegaly. Bowel sounds normal. EXTREMITIES: No clubbing. No cyanosis. LABORATORY DATA: WBC 12.6, hemoglobin 15.3, hematocrit 45.5, and platelets 134. Random sugar 233. Other labs were done on 11/11/2018; they were quoted in our previous notes. DIAGNOSES: The patient has shortness of breath from the bases of exacerbation of chronic obstructive lung disease status post pacemaker insertion for sick sinus syndrome, diabetes mellitus, hypertension, status post surgery for colorectal cancer, obesity, coronary artery disease, and very mild pulmonary hypertension. PLAN: As per the patient, the patient is being discharged today and instruction of the medications have been given to him. Apparently he is getting colchicine 0.6 mg p.o. daily, doxycycline hyclate 100 mg p.o. every 12 hours, aspirin 81 mg daily, metformin 1000 mg twice a day, Lipitor 40 mg daily, Lovenox 30 mg subcutaneous daily, gabapentin 600 mg twice a day, prednisone 20 mg p.o. daily, Protonix 40 mg daily, Xopenex hand nebulizer therapy, Zoloft 100 mg daily, Zyloprim 100 mg daily, and he was to loose weight and exercise. We will follow with you. Crow Brown MD
--- NOTE | 2018-11-13 15:40 | DS ---
HISTORY OF PRESENT ILLNESS: The patient is 68-year-old, seen and examined. He states he is doing better. No nausea, vomiting and diarrhea. Eating and tolerating. PHYSICAL EXAMINATION VITAL SIGNS: He is afebrile. Pulse 67, respirations 20 and blood pressure 143/76. LUNGS: Bilateral fair airflow. Still has expiratory rhonchi on expiration. HEART: S1 and S2 audible. ABDOMEN: Soft, nontender and obese. No hepatosplenomegaly. NEUROLOGICAL: He is awake, alert and oriented, able to communicate. LABORATORY DATA: His blood sugar 233. ASSESSMENT: 1. Asthma exacerbation and chronic obstructive pulmonary disease exacerbation. 2. Hypertension. 3. Non-insulin dependent diabetes. 4. History of colorectal cancer, status post abdominoperineal resection, status post colostomy, status post reversal of colostomy. 5. Morbid obesity. PLAN: The patient is doing well. We will continue him on his Brovana, he is on colchicine. We will discharge him on doxycycline to complete his course of 7 days of antibiotics. We will give him tapering dose of steroid and he will followup in office in two weeks. Sundar Hartman MD
== END 2018-11-13 13:39 | disposition home or self-care (01) | DRG 191 ==
LOC: ED 08:29 → ERH 11:50 → 3RSO 11-11 00:02
PROVIDERS: ADMIT Internal Medicine; ATTEND Internal Medicine
PROC: 3E0F7GC Introduction of Other Therapeutic Substance into Respiratory Tract, Via Natural or Artificial Opening (ICD-10-PCS; principal; 2018-11-11)
DX: J44.1 Chronic obstructive pulmonary disease with (acute) exacerbation (principal); J45.901 Unspecified asthma with (acute) exacerbation; I42.9 Cardiomyopathy, unspecified; E11.9 Type 2 diabetes mellitus without complications; I25.10 Atherosclerotic heart disease of native coronary artery without angina pectoris; G47.33 Obstructive sleep apnea (adult) (pediatric); E66.01 Morbid (severe) obesity due to excess calories; I11.0 Hypertensive heart disease with heart failure; I50.9 Heart failure, unspecified; I27.20 Pulmonary hypertension, unspecified; E78.5 Hyperlipidemia, unspecified; Z68.38 Body mass index [BMI] 38.0-38.9, adult; Z99.81 Dependence on supplemental oxygen; Z91.19 Patient's noncompliance with other medical treatment and regimen; Z85.048 Personal history of other malignant neoplasm of rectum, rectosigmoid junction, and anus; Z92.3 Personal history of irradiation; Z92.21 Personal history of antineoplastic chemotherapy; Z79.84 Long term (current) use of oral hypoglycemic drugs; Z79.899 Other long term (current) drug therapy; Z95.0 Presence of cardiac pacemaker; Z87.891 Personal history of nicotine dependence

== ENCOUNTER 2018-11-27 16:26 | Outpatient (CLI) | payer MEDICARE, OTHER | END 2018-11-27 16:27 | disposition home or self-care (01) | LOC: CARDIO 16:26 ==

== ENCOUNTER 2018-12-06 20:50 | Observation (INO) | payer MEDICARE, OTHER ==
[2018-12-06 20:55] VITALS: BMI 36.9
[2018-12-06] MEDS ORDERED: Sodium Chloride 0.9% 1,000 ML IV SCH (21:30)
[2018-12-06 21:46] LABS: BASO # 0.01 K/mm3 (0.0-2.0); BASO % 0.1 % (0.0-3.0); EOS # 0.3 (0.0-0.7); EOS % 3.3 % (1.5-5.0); HEMOGLOBIN 15.6 g/dL (14.0-18.0); LYMPH # 0.6 (1.2-3.4); LYMPH % 6.2 % (22.0-35.0); MEAN CELL VOLUME 89.7 fl (80.0-105.0); MEAN CORPUSCULAR HEMOGLOBIN 30.2 pg (25.0-35.0); MEAN CORPUSCULAR HGB CONC 33.7 g/dl (31.0-37.0); MEAN PLATELET VOLUME 10.3 fl (7.0-11.0); MONO # 0.3 (0.1-0.6); MONO % 3.6 % (1.0-6.0); RBC 5.16 10^6/uL (3.5-6.1); RED CELL DISTRIBUTION WIDTH 14.4 % (11.5-14.5); WHITE BLOOD COUNT 9.4 10^3/uL (4.5-11.0)
[2018-12-06 22:25] LABS: INR 1.01; PARTIAL THROMBOPLASTIN TIME 28.9 Seconds (26.9-38.3); PROTHROMBIN TIME 11.2 SECONDS (9.4-12.5)
[2018-12-06 22:51] LABS: ALB/GLOB RATIO 1.1 (1.1-1.8); ALBUMIN 3.5 g/dL (3.0-4.8); ALT/SGPT 38 U/L (7-56); AMYLASE 73 U/L (35-125); AST/SGOT 41 U/L (17-59); BLOOD UREA NITROGEN 26 mg/dL (7-21); CALCIUM 8.3 mg/dL (8.4-10.5); GFR NON-AFRICAN AMERICAN > 60; LIPASE 145 U/L (23-300)
[2018-12-06 22:52] LABS: CK-MB 3.9 ng/mL (0.0-3.6); TROPONIN I < 0.01 ng/mL
--- NOTE | 2018-12-06 23:26 | ED PDOC ---
Arrival/HPI - General Chief Complaint: GI Problem Time Seen by Provider: 12/06/18 20:52 Historian: Patient - History of Present Illness Narrative History of Present Illness (Text): 12/06/18 23:26 68 year old male, with pmh of COPD, stage 3 colon cancer, multiple abdominal surgeries including partial colectomy, colostomy with reversal, and hernia repair presents to emergency department with complaints of two episodes of hematemesis today. Patient denies any fever, chills, shortness of breath, chest pain, abdominal pain, diarrhea, or any other complaints. Time/Duration: Other (today ) Symptom Onset: Gradual Symptom Course: Unchanged Activities at Onset: Light Context: Home Past Medical History - Provider Review Nursing Documentation Reviewed: Yes - Infectious Disease Hx of Infectious Diseases: None - Cardiac Hx Pacemaker: Yes - Pulmonary Hx Chronic Obstructive Pulmonary Disease (COPD): Yes Hx Pneumonia: Yes - Neurological Hx Neurological Disorder: Yes - HEENT Hx HEENT Disorder: Yes Hx Cataracts: Yes (b/l sx) - Renal Hx Renal Disorder: Yes - Endocrine/Metabolic Hx Endocrine Disorders: Yes Hx Diabetes Mellitus Type 2: Yes - Hematological/Oncological Hx Cancer: Yes (colon) Hx Chemotherapy: Yes - Integumentary Hx Dermatological Disorder: Yes - Musculoskeletal/Rheumatological Hx Musculoskeletal Disorders: Yes Hx Arthritis: Yes (hands) Hx Falls: No - Gastrointestinal Hx Gastrointestinal Disorders: Yes - Genitourinary/Gynecological Hx Genitourinary Disorders: No - Psychiatric Hx Psychophysiologic Disorder: Yes Hx Anxiety: Yes Hx Substance Use: No - Surgical History Hx Inguinal Hernia Repair: Yes - Anesthesia Hx Anesthesia: Yes Hx Anesthesia Reactions: No Hx Malignant Hyperthermia: No - Suicidal Assessment Feels Threatened In Home Enviroment: No Family/Social History - Physician Review Nursing Documentation Reviewed: Yes Family/Social History: Unknown Family HX Smoking Status: Former Smoker Hx Alcohol Use: No Hx Substance Use: No Allergies/Home Meds Allergies/Adverse Reactions: Allergies No Known Allergies Allergy (Verified 12/06/18 20:55) Home Medications: Home Meds Medication Instructions Recorded Confirmed ALPRAZolam [Xanax] 0.25 mg PO HS PRN 01/26/18 01/26/18 Acetaminophen/Oxycodone Hydr 1 tab PO TID PRN 01/26/18 01/26/18 [Percocet 10/325 mg Tab] Allopurinol [Zyloprim] 100 mg PO DAILY 01/26/18 01/26/18 Colchicine [Colcrys] 0.5 mg PO 01/26/18 Ergocalciferol (Vitamin D2) 1 cap PO QWK 01/26/18 01/26/18 [Vitamin D2] Gabapentin [Neurontin] 600 mg PO BID 01/26/18 01/26/18 Glimepiride [amaRYL] 2 mg PO BID 01/26/18 01/26/18 Metformin HCl [Glucophage] 1,000 mg PO BID 01/26/18 01/26/18 Sertraline HCl [Zoloft] 100 mg PO DAILY 01/26/18 01/26/18 Tizanidine HCl [Zanaflex] 4 mg PO HS 01/26/18 01/26/18 Review of Systems - Physician Review All systems were reviewed & negative as marked: Yes - Review of Systems Constitutional: absent: Fevers Respiratory: absent: SOB, Cough Cardiovascular: absent: Chest Pain Gastrointestinal: Hematemesis (2 episodes ). absent: Abdominal Pain Genitourinary Male: absent: Urinary Output Changes Musculoskeletal: absent: Back Pain, Neck Pain Skin: absent: Rash Neurological: absent: Headache, Dizziness Physical Exam Vital Signs Reviewed: Yes Vital Signs Temp Pulse Resp BP Pulse Ox 12/06/18 21:25 62 18 155/58 H 95 12/06/18 20:56 98.1 F 75 16 161/60 H 96 Temperature: Afebrile Blood Pressure: Normal Pulse: Regular Respiratory Rate: Normal Appearance: Positive for: Well-Appearing, Non-Toxic, Comfortable Pain Distress: None Mental Status: Positive for: Alert and Oriented X 3 - Systems Exam Head: Present: Atraumatic, Normocephalic Pupils: Present: PERRL Extroacular Muscles: Present: EOMI Conjunctiva: Present: Normal Mouth: Present: Moist Mucous Membranes Neck: Present: Normal Range of Motion Respiratory/Chest: Present: Clear to Auscultation, Good Air Exchange. No: Respiratory Distress, Accessory Muscle Use Cardiovascular: Present: Regular Rate and Rhythm, Normal S1, S2. No: Murmurs Abdomen: No: Tenderness, Distention, Peritoneal Signs Back: Present: Normal Inspection Upper Extremity: Present: Normal Inspection. No: Cyanosis, Edema Lower Extremity: Present: Normal Inspection. No: Edema Neurological: Present: GCS=15, CN II-XII Intact, Speech Normal Skin: Present: Warm, Dry, Normal Color. No: Rashes Psychiatric: Present: Alert, Oriented x 3, Normal Insight, Normal Concentration Medical Decision Making ED Course and Treatment: 12/06/18 23:29 Impression: 68 year old male presents to emergency department for two episodes of jamilah temesis today. Plan: -- EKG -- Labs -- Chest X-ray -- IV Fluids -- Reassess and disposition Prior Visits: Notes and results from previous visits were reviewed. Progress Notes: karrie ed/w dr desmond ferrer accepts case - Lab Interpretations Lab Results: PT 11.2 SECONDS (9.4-12.5) 12/06/18 21:59 INR 1.01 12/06/18 21:59 APTT 28.9 Seconds (26.9-38.3) 12/06/18 21:59 Troponin I < 0.01 ng/mL D 12/06/18 21:59 Total Bilirubin 0.4 mg/dL (0.2-1.3) 12/06/18 21:59 AST 41 U/L (17-59) 12/06/18 21:59 ALT 38 U/L (7-56) 12/06/18 21:59 Alkaline Phosphatase 76 U/L (38-126) 12/06/18 21:59 Total Protein 6.8 g/dL (5.8-8.3) 12/06/18 21:59 Albumin 3.5 g/dL (3.0-4.8) 12/06/18 21:59 Globulin 3.3 gm/dL 12/06/18 21:59 Albumin/Globulin Ratio 1.1 (1.1-1.8) 12/06/18 21:59 Amylase 73 U/L (35-125) 12/06/18 21:59 Lipase 145 U/L (23-300) 12/06/18 21:59 - RAD Interpretation Radiology Orders: 12/06/18 21:18 CHEST PORTABLE [RAD] Stat - EKG Interpretation EKG Interpretation (Text): 12/07/18 01:42 nsr rate 64 nssts changes, rbbb - Medication Orders Current Medication Orders: Sodium Chloride (Sodium Chloride 0.9%) 1,000 mls @ 80 mls/hr IV .[id number] ORIANA Last Admin: 12/06/18 21:55 Dose: 80 mls/hr eMAR Start Stop Document 12/06/18 21:55 RG (Rec: 12/06/18 21:56 RG [id number]) Intravenous Solution Start Date 12/06/18 Start Time 21:55 Discontinued Medications Ondansetron HCl (Zofran Inj) 4 mg IVP STAT STA Stop: 12/06/18 21:27 Last Admin: 12/06/18 21:49 Dose: 4 mg IVP Administration Document 12/06/18 21:49 RG (Rec: 12/06/18 21:54 RG [id number]) Charges for Administration # of IVP Administrations 1 Pantoprazole Sodium (Protonix Inj) 40 mg IVP ONCE STA Stop: 12/06/18 21:27 Last Admin: 12/06/18 21:50 Dose: 40 mg IVP Administration Document 12/06/18 21:50 RG (Rec: 12/06/18 21:55 [id number] Charges for Administration # of IVP Administrations 1 - Scribe Statement The provider has reviewed the documentation as recorded by the Scribe Syeda Conner All medical record entries made by the Scribe were at my direction and personally dictated by me. I have reviewed the chart and agree that the record accurately reflects my personal performance of the history, physical exam, medical decision making, and the department course for this patient. I have also personally directed, reviewed, and agree with the discharge instructions and disposition. Disposition/Present on Arrival - Present on Arrival Any Indicators Present on Arrival: No History of DVT/PE: No History of Uncontrolled Diabetes: No Urinary Catheter: No History of Decub. Ulcer: No History Surgical Site Infection Following: None - Disposition Have Diagnosis and Disposition been Completed?: Yes Diagnosis: Upper gastrointestinal bleeding, Sonia-Higgins tear Disposition: HOSPITALIZED Disposition Time: 00:50 Condition: GOOD
[2018-12-07] MEDS ORDERED: Sodium Chloride 0.9% 1,000 ML IV STA (00:52)
[2018-12-07] MEDS ORDERED: Pneumococcal 23-Valent Vaccine IM ONE (03:21)
[2018-12-07] MEDS ORDERED: Influenza Vaccine 60 mcg/0.5 mL SYR (4YR UP) IM ONE (03:21)
[2018-12-07 08:30] LABS: HEMOGLOBIN 13.8 g/dL (14.0-18.0); MEAN CELL VOLUME 89.4 fl (80.0-105.0); MEAN CORPUSCULAR HEMOGLOBIN 29.2 pg (25.0-35.0); MEAN CORPUSCULAR HGB CONC 32.7 g/dl (31.0-37.0); MEAN PLATELET VOLUME 8.6 fl (7.0-11.0); RBC 4.72 10^6/uL (3.5-6.1); RED CELL DISTRIBUTION WIDTH 14.3 % (11.5-14.5); WHITE BLOOD COUNT 7.1 10^3/uL (4.5-11.0)
[2018-12-07] MEDS ORDERED: Dextrose 50% SYRINGE Inj (50 ml) IV PRN (08:58)
[2018-12-07] MEDS: Mesalamine 800 mg DR Tab PO SCH ×3 (09:49→17:36)
--- NOTE | 2018-12-07 10:23 | CARD ---
APPROVED REPORT Date of service: 12/06/2018 EKG Measurement Heart [id number] <Conclusion> Normal sinus rhythm Possible Left atrial enlargement Right bundle branch block Left anterior fascicular block Bifascicular block T wave abnormality, consider inferolateral ischemia Abnormal ECG
--- NOTE | 2018-12-07 10:43 | RAD ---
Date of service: 12/06/2018 HISTORY: gi bleed COMPARISON: 11/10/2018. FINDINGS: LUNGS: Pulmonary vascular congestion common no discrete infiltrates. PLEURA: No significant pleural effusion identified, no pneumothorax apparent. CARDIOVASCULAR: Cardiomegaly/pulmonary vascular congestion. Position/ configuration of pacemaker OSSEOUS STRUCTURES: No significant abnormalities. VISUALIZED UPPER ABDOMEN: Normal. OTHER FINDINGS: None. IMPRESSION: Worsening pulmonary vascular congestion compared to the prior study 11/10/2018.
[2018-12-07] MEDS: Insulin Reg-LOW-Coverage SC SCH ×2 (13:25→17:15)
[2018-12-07] MEDS: Albuterol-Ipratrop 3 mg / 0.5 (3 ml) UD IH SCH ×2 (14:21→19:49)
--- NOTE | 2018-12-07 16:19 | HP ---
DATE OF EXAM: 12/07/2018 CHIEF COMPLAINT AND HISTORY OF PRESENT ILLNESS: This is a 68-year-old male, who his coming into the hospital with hematemesis x2. The patient states that he has a history of colon cancer, has been treated and had colectomy. He is not sure if he had a partial colectomy or total colectomy. He also had a colostomy that was reversed. He has COPD. He denies any abdominal pain. No dysuria. No frequency. No nocturia. He does have a diarrhea frequently, because of his history of surgery. He has no diplopia. No dysarthria. No weakness in the arms or the legs. No fevers or chills. No current ill contacts. REVIEW OF SYSTEMS: All of the review of systems are within normal limits except what is mentioned. ALLERGIES: NO KNOWN DRUG ALLERGIES. HOME MEDICATIONS: He is on Xanax, Percocet, allopurinol, colchicine, Neurontin, Amaryl, Glucophage, Zoloft, and Zanaflex. SOCIAL HISTORY: He is former smoker. He does not use drugs. He denies alcohol abuse. The patient says his had about a year ago and he has been lonely since then. PAST MEDICAL HISTORY: 1. Colon CA, status post partial colectomy. 2. Gout. 3. Anxiety. 4. Diabetes type 2. 5. Spinal stenosis. 6. Depression. PHYSICAL EXAMINATION VITAL SIGNS: Temperature is 99.6, pulse is 71, blood pressure 129/56, respirations 20 and O2 saturations 94%. GENERAL: The patient is lying in bed, comfortable, and in no acute distress. HEENT: Atraumatic and normocephalic. Anicteric sclerae. Moist mucosa. [place] conjunctivae. No oral lesions. NECK: No JVD, anterior and posterior adenopathy, thyromegaly, or bruits. CARDIOVASCULAR: S1 and S2 regular. No murmurs, rubs or gallops. LUNGS: Clear to auscultation bilaterally. No wheezes, rales, or rhonchi. ABDOMEN: Bowel sounds are positive. Soft, nontender and nondistended. No hepatosplenomegaly. No rebound and no guarding. EXTREMITIES: No cyanosis, clubbing, or edema. NEUROLOGIC: No facial asymmetry. Tongue is midline. No uvula deviation. Power is 5/5 upper extremities and lower extremities. Sensation intact in upper extremities and lower extremities. PSYCHIATRIC: He is awake, alert and oriented x3. No anxiety or depression. He has normal affect. GENITOURINARY: No CVA tenderness. VASCULAR: 2+ pulses in the carotid pulses and pedal pulses. SKIN: No erythema or nodules SPINE: Shows normal curvature. LABORATORY DATA: White count 9.4, hemoglobin 15.6, and platelet count is 145. INR is 1.01. Sodium is 135, potassium 4.2, creatinine is 0.9, calcium is 8.3, troponin is 0.01 and albumin is 3.5. EKG shows heart rate of 64 sinus rhythm. There is a T-wave inversions in V1 through V6. Chest x-ray shows cardiomegaly. There is no infiltrate. ASSESSMENTS: 1. Hematemesis. 2. History of colon cancer with partial colectomy. 3. Diabetes type 2. 4. Gout. 5. Chronic obstructive pulmonary disease. 6. Obese with body mass index of 37. 7. Spinal stenosis. PLAN: The patient is currently comfortable. He is going to be on his Neurontin for his neuropathy, I will hold his aspirin and Lasix. The patient has been on Colcrys for his gout, I will continue that. I will hold his diabetes medications, because he is n.p.o. He is on trazodone in the evening time, this will also be continued. I will get GI evaluation. He will have repeat blood work done. He has not had any episodes of vomiting. He also states that he does have some blood in his stool at times, he had this in the past. We will place him on liquid diet. We will await further input from Dr. Johnson. Jared Encinas MD
[2018-12-07] MEDS ORDERED: Sodium Chloride 0.9% 1,000 ML IV SCH (19:45)
--- NOTE | 2018-12-07 19:59 | CON ---
DATE: 12/07/2018 HISTORY OF PRESENT ILLNESS: I saw Mr. Mei this morning. 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 Note that the patient was not nauseous before the episodes occurred. He related that he had a bagel with eggs yesterday then within a relatively short time afterward just exhibited a spontaneous series of vomiting episodes associated with pinkish liquid. The patient denied extremely gross rectal bleeding as well. Note that he has had a problem with recurrent diarrhea, which resulted from his rectal cancer treatment. 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 The patient denied any odynophagia or dysphagia or severe acid reflux prior to the current event. PHYSICAL EXAMINATION: VITAL SIGNS: I reviewed this patient's vital signs. HEENT: Significant for dry mouth. LUNGS: Decreased breath sounds at the bases. HEART: Regular rhythm. ABDOMEN: Protuberant, mild tenderness in the epigastric area noted. He is nontender over the periumbilical area as well as right lower quadrant and left lower quadrant. LABORATORY DATA: Indicates H and H of 15 and 46, WBC 9.4 with platelet count of 145. INR within normal limits. Biliary labs within normal limits. Glucose extending between now 117 and 228. Results of EKG and chest x-ray pending. The patient's chest x-ray and images indicate no infiltrate. 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 Clinical scenario, a fluid related etiology is highly suggestive. Accordingly, the patient is tentatively on schedule for an upper endoscopy tomorrow. Note that he had a previous cardiac evaluation during his previous admission recently for chronic obstructive pulmonary disease exacerbation. Note that the patient is on aspirin therapy, which may predispose him to gastric ulcerations. He does not practice antireflux precautions. Note that the patient's medications list includes Xanax, Percocet 10, allopurinol, colchicine, vitamin D, gabapentin, glimepiride, metformin, sertraline, and Zanaflex. The orders indicate that the patient is not on a proton-pump inhibitor at the current time point. We will re-institute pantoprazole one dose daily. 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 PLAN: As indicated above, the patient is scheduled for an upper endoscopy scheduled for tomorrow roughly around 9 or 9:15, to be n.p.o. after midnight. I reviewed his case with the nurses on the floor who indicated that he is currently n.p.o. because of failing a swallow evaluation. The speech therapist should be in sometime later on this morning. I am sure that the patient will pass since he has not had any issues regarding dysphagia in the past. If this is the case, he will resume his clear liquid diet until the night tonight after which he will be n.p.o. Richi Johnson DO
[2018-12-08] MEDS: Albuterol-Ipratrop 3 mg / 0.5 (3 ml) UD IH SCH ×3 (02:30→13:21)
[2018-12-08 07:01] LABS: HEMOGLOBIN 13.5 g/dL (14.0-18.0); MEAN CELL VOLUME 90.9 fl (80.0-105.0); MEAN CORPUSCULAR HEMOGLOBIN 29.2 pg (25.0-35.0); MEAN CORPUSCULAR HGB CONC 32.1 g/dl (31.0-37.0); MEAN PLATELET VOLUME 9.1 fl (7.0-11.0); RBC 4.63 10^6/uL (3.5-6.1); RED CELL DISTRIBUTION WIDTH 14.6 % (11.5-14.5); WHITE BLOOD COUNT 4.4 10^3/uL (4.5-11.0)
[2018-12-08 07:36] LABS: ALT/SGPT 45 U/L (7-56); AST/SGOT 54 U/L (17-59); BLOOD UREA NITROGEN 11 mg/dL (7-21); CALCIUM 7.9 mg/dL (8.4-10.5); GFR NON-AFRICAN AMERICAN > 60
[2018-12-08] MEDS: Insulin Reg-LOW-Coverage SC SCH ×2 (07:54→11:43)
[2018-12-08 08:20] VITALS: TEMP 98
[2018-12-08] MEDS ORDERED: Propofol 10 mg/ml Inj (20 ML) ONE (08:55)
[2018-12-08 09:47] VITALS: O2SAT 96
[2018-12-08 09:57] VITALS: BP 106/48; RESP 15
[2018-12-08] MEDS ORDERED: Sodium Chloride 0.9% 1,000 ML IV SCH (10:00)
--- NOTE | 2018-12-08 10:12 | PN ---
DATE: 12/08/2018 SUBJECTIVE: I examined Mr. Mei this morning. He is 68-year-old white male, known from previous consult with past medical history of COPD, rectal cancer, now with complaints of hematemesis. At bedside this morning, the patient indicates no nausea, no repeat episodes of hematemesis. He denied abdominal pain. He passed his swallow evaluation yesterday with no problems. The diet was advanced as well. PHYSICAL EXAMINATION: VITAL SIGNS: We discussed his vital signs. HEENT: Significant for dry mouth only. LUNGS: Decreased breath sounds at bases. HEART: Regular rhythm. ABDOMEN: Protuberant. Mild tenderness in the epigastric area. LABORATORY DATA: Indicate H and H of 13 and 42, platelet count 94. Other laboratory data is noncontributory. 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 The patient is scheduled for an upper endoscopy later on this morning to evaluate etiology. He was advised of risks, benefits, and alternatives of procedure including alternatives of no procedure. Further report after the procedure this morning. The patient is due for followup at [facility] some time later in the week. This procedure should not impact that visit. Richi Johnson DO
[2018-12-08] MEDS: Mesalamine 800 mg DR Tab PO SCH (11:42)
[2018-12-08] MEDS ORDERED: Influenza Vaccine 60 mcg/0.5 mL SYR (4YR UP) IM ONE (13:44)
[2018-12-08 14:58] VITALS: PULSE 61
--- NOTE | 2018-12-08 21:04 | DS ---
HISTORY OF PRESENT ILLNESS: The patient is 68 years old who came to the emergency room because of vomiting blood. The patient was seen by Dr. Johnson, underwent an endoscopy and was found to have a nonbleeding ulcer. The patient does have history of rectal CA and for that he has abdominoperineal resection and with colostomy and later on colostomy was reversed. PAST MEDICAL HISTORY: The patient also has history of; 1. COPD. 2. Hypertension. 3. Hyperlipidemia. 4. Noninsulin-dependant diabetes. 5. Status post pacemaker placement. PHYSICAL EXAMINATION: GENERAL: On examination today, he is awake, alert and able to communicate. VITAL SIGNS: Afebrile, pulse 60, respiration 15 and blood pressure 106/48. LUNGS: Bilateral fair airflow. No rhonchi or crackle. HEART: S1, S2 audible. ABDOMEN: Soft, nontender and obese. No hepatosplenomegaly. NEUROLOGIC: He is awake, alert and able to communicate. EXTREMITIES: Bilateral leg no edema. LABORATORY DATA: WBC is 4.4, hemoglobin 13.5, hematocrit 42.1 and platelet 94. Chemistry; sodium 141, potassium 3.6, chloride 105, CO2 of 28, BUN 11, creatinine 0.9 and blood sugar of 168. ASSESSMENT: 1. Status post hematemesis. 2. Peptic ulcer disease and gastric ulcer. 3. History of rectal cancer, status post resection with colostomy and reversal of colostomy. 4. Noninsulin-dependant diabetes. 5. Hypertension. 6. Hyperlipidemia. PLAN: Currently, the patient is on mesalamine. He is on colchicine. He gets nebulizer treatment. He is on gabapentin at bedtime. He has been started on Protonix and that he will be discharge home on and he is given prescription of Carafate also. We will follow up the patient in 2 to 3 weeks and monitor his hemoglobin and hematocrit. Sundar Hartman MD
== END 2018-12-08 16:55 | disposition home or self-care (01) ==
LOC: ED 20:50 → ERH 12-07 00:50 → 3RNO 12-07 02:16
PROVIDERS: ADMIT Internal Medicine; ATTEND Internal Medicine
DX: K92.0 Hematemesis (principal); K25.9 Gastric ulcer, unspecified as acute or chronic, without hemorrhage or perforation; K44.9 Diaphragmatic hernia without obstruction or gangrene; K20.9 Esophagitis, unspecified; I10 Essential (primary) hypertension; E11.40 Type 2 diabetes mellitus with diabetic neuropathy, unspecified; J44.9 Chronic obstructive pulmonary disease, unspecified; E78.5 Hyperlipidemia, unspecified; M10.9 Gout, unspecified; F41.9 Anxiety disorder, unspecified; M48.00 Spinal stenosis, site unspecified; F32.9 Major depressive disorder, single episode, unspecified; E66.9 Obesity, unspecified; Z68.37 Body mass index [BMI] 37.0-37.9, adult; Z87.891 Personal history of nicotine dependence; Z95.0 Presence of cardiac pacemaker; Z79.82 Long term (current) use of aspirin; Z79.84 Long term (current) use of oral hypoglycemic drugs; Z85.048 Personal history of other malignant neoplasm of rectum, rectosigmoid junction, and anus; Z90.49 Acquired absence of other specified parts of digestive tract; Z87.01 Personal history of pneumonia (recurrent); Z23 Encounter for immunization
CPT/HCPCS: 36415; 43239; 71045; 80053; 82150; 82550; 82553; 82948; 83615; 83690; 84484; 85025; 85027; 85610; 85730; 86850; 86900; 88305; 88312; 88342; 90674; 93005; 94640; 94760; 96374; 96375; 96376; 99285; C9113; G0008; G0378; J2001; J2405; J2704; J7030; J7040